=== PATIENT | female | born 1940 | race Caucasian/White ===

== ENCOUNTER 2020-11-11 14:11 | Emergency (ER) | payer MEDICARE, SELFPAY ==
[2020-11-11 16:06] VITALS: BP 178/69; PULSE 90; RESP 16; TEMP 36.8; O2SAT 97; BMI 28.9
--- NOTE | 2020-11-11 16:31 | XR_ITS ---
EXAMINATION: XR LUMBOSACRAL SPINE CLINICAL INFORMATION: Back pain radiating down leg COMPARISON: None TECHNIQUE: Three views of the lumbosacral spine. FINDINGS: There is a mild scoliosis convex to the right. Degenerative changes are present with disc space narrowing at L2-L3 and marked narrowing at L5-S1 with grade 1-2 anterolisthesis. I suspect that there are bilateral pars defects present at the L5 level as well. No fractures or bony destructive lesions seen XR/XR lumbar spine 2-3V IMPRESSION: Degenerative changes present in the spine with marked changes at L5-S1 with grade 1-2 anterolisthesis.
--- NOTE | 2020-11-11 16:41 | PC.NURSE ---
oob to transported to , self transfered to [facility] and back to then able to stand and regain stretcher
--- NOTE | 2020-11-11 16:58 | ED.BACK ---
HPI - Back Pain/Injury General Chief Complaint: Back Pain/Injury Stated Complaint: rt leg pain Time Seen by Provider: 11/11/20 16:07 Source: patient Mode of arrival: ambulatory History of Present Illness HPI Narrative: 80-year-old female with a past medical history of anxiety, hyperlipidemia, hypertension, hypothyroid, PVD presenting to the ED complaining of right-sided low back pain radiating down right lower extremity times 1 week. Reports heavy lifting with helping her . Denies direct trauma/known injury, numbness, tingling, weakness, urinary continence retention, or fever Admits recently saw a chiropractor, and prescribed Robaxin with minimal relief Related Data Home Medications Medication Instructions Recorded Confirmed atorvastatin 80 mg tablet 80 mg PO DAILY 10/21/20 10/21/20 cholecalciferol (vitamin D3) 25 25 mcg PO DAILY 10/21/20 10/21/20 mcg (1,000 unit) capsule cyanocobalamin (vitamin B-12) 1,000 mcg PO DAILY 10/21/20 10/21/20 1,000 mcg capsule vitamin E 200 unit capsule 200 unit PO DAILY 10/21/20 10/21/20 Previous Rx's Medication Instructions Recorded levothyroxine 112 mcg capsule 112 mcg PO DAILY #90 cap 10/21/20 lisinopril 5 mg tablet 5 mg PO DAILY #90 tab 10/21/20 triamcinolone acetonide 0.5 % 1 appl TOPICAL BID #15 g 10/21/20 topical cream meloxicam 7.5 mg tablet 7.5 mg PO DAILY #14 tab 11/07/20 acetaminophen [Tylenol Extra 500 mg PO Q6H PRN #20 tab 11/11/20 Strength] lidocaine [Lidoderm] 1 patch TOPICAL DAILY PRN #30 ea 11/11/20 MDD remove after 12 hours tramadol 50 mg PO Q8H PRN 3 Days #9 tab 11/11/20 Allergies Allergy/AdvReac Type Severity Reaction Status Date / Time amoxicillin Allergy Unknown unknown Verified 10/15/20 13:36 Review of Systems Review of Systems: Constitutional: No Weight loss, No Fever, No Chills Cardiovascular: No Chest Pain, No SOB Respiratory: No Cough Gastrointestinal: No Nausea, No Vomiting, No Diarrhea, No Abdominal pain Genitourinary: No Urinary Incontinence/retention, No Urgency, No Flank Pain Musculoskeletal: + joint pain, No Myalgias, No Joint Swelling Skin: No Skin Lesions, No rash Neuro: No Weakness, No Numbness, No Paresthesias Yes all other systems are reviewed and are negative [facility] Past Medical History Attestation statement: The following information was validated with the patient. Medical History (Updated 11/11/20 @ 17:02 by ISIDRO Vu) Anxiety Hypercholesterolemia Hypertension Hypothyroid Osteopenia Peripheral vascular disease Surgical History History of colonoscopy History of hysterectomy History of left knee replacement History of lumpectomy of left breast History of thyroidectomy Family History Family History (Updated 10/15/20 @ 13:38 by Zoraida Whiatker [facility]) Father CAD (coronary artery disease) CVD (cardiovascular disease) Mother Hypertension Stroke Aneurysm Family/Other Hyperlipidemia Social History Social History Advance Directives: No Advance Directives Information Provided: No Physical Exam Vital Signs: Vital Signs: Last Vital Signs Temp 98.2 F 11/11/20 16:06 Pulse 90 11/11/20 16:06 Resp 16 11/11/20 16:06 BP 178/69 H 11/11/20 16:06 Pulse Ox 97 11/11/20 16:06 Body Mass Index 28.9 Const: General: cooperative and healthy appearing Orientation/consciousness: patient oriented x3 Limitations: no limitations HENMT: Head: Yes normal to inspection Ears: hearing grossly normal bilaterally General nose exam: Normal external nose present Face and sinus: Yes normal facial exam Eyes: General: appearance normal, both eyes and all related structures EOM: EOMs intact bilaterally Neck: Other: No midline cervical spinous tenderness Neck: Yes normal visual inspection Resp: Effort & Inspection: normal respiratory effort Cardio: Rate: regular rate Peripheral pulses: dorsalis pedis present GI: Inspection: Yes normal to inspection Palpation (GI): Soft to palpation, nontender, no guarding and not rigid Back/Spine/Pelvis: Other: No midline thoracic/lumbar spinous tenderness.+ right-sided lower or MSK tenderness/right buttock tenderness to palpation Skin: Rashes: no rashes Wounds: no wounds Neuro: Other: No saddle anesthesia, ambulating with steady gait, strength intact throughout General: patient oriented x3, gait normal, tone normal and moves all extremities Gait exam (Neuro): Normal gait present Motor exam (neuro): 5/5 motor strength present throughout Extrem: General: Yes normal to inspection Course Course Course Narrative: -1800-- ED care transferred to ISIDRO Bill pending XR MDM - Back Pain/Injury MDM Narrative Medical decision making narrative: On exam VSS, NAD/well-appearing, no midline spinous tenderness. No red flag symptoms. No saddle anesthesia. Likely sciatic pain/MSK pain. Low concern for cauda equina/cord compression or fracture Patient requesting x-ray Discharge Plan Discharge Clinical Impression: Sciatica Qualifiers: Laterality: right Qualified Code(s): M54.31 - Sciatica, right side Patient Disposition: Home, Self-Care Instructions: Sciatica (ED) Additional Instructions: Your x-rays were unremarkable Your pain is likely musculoskeletal Continue taking previously prescribed muscle relaxer Lidoderm patches are numbing patches, apply to painful area Tramadol as an opiate pain medication, take only when pain is severe for the next 3 days In addition take Tylenol at home If symptoms persist or worsen, pain becomes unbearable, you developed urinary retention or incontinence, or weakness return to the ED Prescriptions: New acetaminophen [Tylenol Extra Strength] 500 mg tablet 500 mg PO Q6H PRN (Reason: pain or fever) Qty: 20 RF: 0 lidocaine [Lidoderm] 5 % adhesive patch,medicated 1 patch topical DAILY MDD remove after 12 hours PRN (Reason: pain) Qty: 30 RF: 0 tramadol 50 mg tablet 50 mg PO Q8H PRN (Reason: severe pain) 3 Days Qty: 9 RF: 0 No Action meloxicam 7.5 mg tablet 7.5 mg PO DAILY Qty: 14 RF: 0 atorvastatin 80 mg tablet 80 mg PO DAILY RF: 0 cholecalciferol (vitamin D3) 25 mcg (1,000 unit) capsule 25 mcg PO DAILY RF: 0 vitamin E 200 unit capsule 200 unit PO DAILY RF: 0 cyanocobalamin (vitamin B-12) 1,000 mcg capsule 1,000 mcg PO DAILY RF: 0 levothyroxine 112 mcg capsule 112 mcg PO DAILY Qty: 90 RF: 2 triamcinolone acetonide 0.5 % cream 1 appl topical BID Qty: 15 RF: 0 lisinopril 5 mg tablet 5 mg PO DAILY Qty: 90 RF: 3
== END 2020-11-11 19:27 | disposition home or self-care (01) ==
PROVIDERS: Emergency Provider Internal Medicine; PCP Internal Medicine
DX: M54.41 Lumbago with sciatica, right side (principal); M79.604 Pain in right leg; Z79.899 Other long term (current) drug therapy
CPT/HCPCS: 72100; 99283; 99284

== ENCOUNTER 2021-01-03 07:25 | Outpatient (REF) | payer MEDICARE, OTHER, SELFPAY ==
[2021-01-03 08:20] LABS: MANUAL DIFF FLAG NO
[2021-01-03 08:36] LABS: Basophils Absolute Auto 0.1 X10*3/uL (0.0-0.2); Basophils Percent Auto 0.9 % (0-2); Eosinophils Absolute Auto 0.4 X10*3/uL (0.0-0.4); Eosinophils Percent Auto 7.2 % (0-4); Hematocrit 34.5 % (37-47); Hemoglobin 11.3 g/dl (12.0-16.0); Imm Gran Abs Auto 0.01 X10*3/uL (0.00-0.03); Imm Gran Pct Auto 0.2 % (0.0-0.4); Lymphocytes Absolute Auto 1.9 X10*3/uL (1.2-4.9); Lymphocytes Percent Auto 31.6 % (20-40); Mean Corpuscular HGB Conc 32.8 g/dl (31.0-35.0); Mean Corpuscular Hemoglobin 32.3 pg (27.0-33.0); Mean Corpuscular Volume 98.6 fL (80-98); Monocytes Absolute Auto 0.5 X10*3/uL (0.1-1.2); Monocytes Percent Auto 9.1 % (2-11); Platelet Count 295 X10*3/uL (160-400); Red Cell Distribution Width 13.4 % (11.0-16.0); White Blood Count 5.9 X10*3/uL (4.8-10.8)
[2021-01-03 08:53] LABS: Alanine Aminotransferase 21 U/L (0-31); Albumin Level 4.3 g/dL (3.5-5.0); Alkaline Phosphatase 151 U/L (39-117); Anion Gap 10 (12-20); Aspartate Amino Transferase 30 U/L (5-31); Bilirubin Total 0.6 mg/dL (0.0-1.0); Blood Urea Nitrogen 19 mg/dL (9-16); Calcium 9.3 mg/dL (8.4-10.2); Carbon Dioxide 30 mmol/L (22-29); Chloride 98 mmol/L (96-108); Cholesterol 205 mg/dL; Estimated Glomerular Filt Rate > 60; Glucose Random 95 mg/dL (60-115); HDL Cholesterol 65 mg/dL; LDL Cholesterol Calculated 123 mg/dl; Potassium 4.6 mmol/L (3.3-5.1); Sodium 133 mmol/L (135-145); Total Protein 7.3 g/dL (6.5-8.0); Triglycerides 88 mg/dL
[2021-01-03 09:17] LABS: Thyroid Stimulating Hormone 1.75 uIU/mL (0.32-4.0); Vitamin D 25-OH Total 46.8 ng/mL (>30)
[2021-01-05 05:17] LABS: Vitamin B12 447 pg/mL (200-900)
== END 2021-01-03 07:26 | disposition home or self-care (01) ==
LOC: HO.LAB 07:25
PROVIDERS: Visit Provider Internal Medicine
DX: E03.9 Hypothyroidism, unspecified (principal); E78.00 Pure hypercholesterolemia, unspecified; I10 Essential (primary) hypertension
CPT/HCPCS: 36415; 80053; 80061; 82306; 82607; 82746; 84439; 84443; 85025

== ENCOUNTER 2021-01-28 15:06 | Outpatient (REF) | payer MEDICARE, OTHER, SELFPAY ==
--- NOTE | ~2021-01-28 | XR_ITS ---
EXAMINATION: XR CHEST CLINICAL INFORMATION: Cough COMPARISON: 02/07/2018 TECHNIQUE: 2 views of the chest were obtained. FINDINGS: The lungs are well expanded. There is no focal consolidation, edema, or effusion. No pneumothorax. The cardiomediastinal silhouette is within normal limits of size with a calcified aorta. No acute osseous abnormality. XR/XR chest 2V IMPRESSION: Clear lungs.
== END 2021-01-28 15:07 | disposition home or self-care (01) ==
LOC: HO.XRAY 15:06
PROVIDERS: PCP Internal Medicine; Visit Provider Internal Medicine
DX: R05 Cough (principal)
CPT/HCPCS: 71046

== ENCOUNTER 2021-02-07 07:13 | Outpatient (REF) | payer MEDICARE, OTHER, SELFPAY ==
[2021-02-07 08:19] LABS: MANUAL DIFF FLAG NO
[2021-02-07 08:31] LABS: Basophils Absolute Auto 0.1 X10*3/uL (0.0-0.2); Eosinophils Absolute Auto 0.3 X10*3/uL (0.0-0.4); Eosinophils Percent Auto 5.6 % (0-4); Hematocrit 35.6 % (37-47); Hemoglobin 11.7 g/dl (12.0-16.0); Imm Gran Abs Auto 0.01 X10*3/uL (0.00-0.03); Imm Gran Pct Auto 0.2 % (0.0-0.4); Immature Retic Fraction 9.4 % (3.0-15.9); Lymphocytes Absolute Auto 1.9 X10*3/uL (1.2-4.9); Lymphocytes Percent Auto 37.1 % (20-40); Mean Corpuscular HGB Conc 32.9 g/dl (31.0-35.0); Mean Corpuscular Hemoglobin 32.9 pg (27.0-33.0); Monocytes Absolute Auto 0.4 X10*3/uL (0.1-1.2); Monocytes Percent Auto 7.4 % (2-11); Neutrophils Absolute Auto 2.5 X10*3/uL (2.0-8.3); Neutrophils Percent Auto 48.7 % (45-73); Platelet Count 255 X10*3/uL (160-400); Red Blood Count 3.56 X10*6/uL (4.20-5.50); Red Cell Distribution Width 13.1 % (11.0-16.0); Retic HGB Equivalent 36.3 pg (30.0-35.0); Reticulocyte Percent 1.6 % (0.5-1.8); Reticulocytes Absolute 0.058 X10*6/uL (0.026-0.095); White Blood Count 5.2 X10*3/uL (4.8-10.8)
[2021-02-07 08:52] LABS: Iron 90 mcg/dL (30-160); Percent Iron Saturation 27 % (15-50); Total Iron Binding Capacity 330 mcg/dL (228-428); Unsaturated Iron Binding 240 ug/dL
[2021-02-07 09:23] LABS: Ferritin 384 ng/mL (10-250)
== END 2021-02-07 07:14 | disposition home or self-care (01) ==
LOC: HO.LAB 07:13
PROVIDERS: PCP Internal Medicine; Visit Provider Internal Medicine
DX: D64.9 Anemia, unspecified (principal)
CPT/HCPCS: 36415; 82728; 83540; 85025; 85045

== ENCOUNTER 2021-03-09 10:10 | Day surgery (SDC) | payer MEDICARE, OTHER, SELFPAY ==
[2021-03-02 16:53] VITALS: BMI 29.5
--- NOTE | 2021-03-04 16:54 | MHC.SHP ---
Pre-Procedural Eval Section A The patient is an INPATIENT: No The History & Physical has been completed within 30 days and I have reviewed it.: Yes Section B Chief Complaint: Right Eye Cataract Allergies: Allergies Allergy/AdvReac Type Severity Reaction Status Date / Time lisinopril Allergy Intermediate cough Verified 02/25/21 09:52 amoxicillin Allergy Unknown unknown Verified 02/25/21 09:52 Plan Diagnosis/Plan: Unchanged I have reviewed the history and physical and performed a pertinent physical examination on my patient. No changes have occurred unless specified.
--- NOTE | 2021-03-06 09:54 | P.CONAN_ITS ---
Documented by User: Ritika Rebekah 03/06/21 09:55 HPI - Anesthesia Eval Consult details Narrative: 80yo F for Right Cataract Extraction IOL Insertion PCP cleared No prev cataract on record [facility] Active Problems Active Problems: All Active Problems (Updated 02/25/21 @ 10:02 by Sagar Stout MD) Overweight (BMI 25.0-29.9) (Acute) Cataract (Acute) Cough (Acute) Anemia (Acute) Lumbar degenerative disc disease (Acute) Eczema (Acute) Hypercholesterolemia (Acute) Peripheral vascular disease (Acute) Hypothyroid (Acute) Hypertension (Acute) Past Medical History Medical History Anxiety Cataract, left eye Hypercholesterolemia Hypertension Hypothyroid Osteopenia Overweight (BMI 25.0-29.9) Peripheral vascular disease Family History Family History Father CAD (coronary artery disease) CVD (cardiovascular disease) Mother Hypertension Stroke Aneurysm Family/Other Hyperlipidemia Surgical History Surgical History History of colonoscopy History of hysterectomy History of left knee replacement History of lumpectomy of left breast History of thyroidectomy Social History Social History Alcohol intake: never Smoking Status: Former smoker Smoking Quit Date: 1987 Are you DNR?: No Advance Directives: No Advance Directives Information Provided: No Advance Directives on File: No Meds Allergies Allergy/AdvReac Type Severity Reaction Status Date / Time lisinopril Allergy Intermediate cough Verified 02/25/21 09:52 amoxicillin Allergy Unknown unknown Verified 02/25/21 09:52 Home Medications Medication Instructions Recorded Confirmed Last Taken Type atorvastatin 80 mg tablet 80 mg PO DAILY 10/21/20 03/02/21 Unknown History cholecalciferol (vitamin D3) 25 25 mcg PO DAILY 10/21/20 03/02/21 Unknown History mcg (1,000 unit) capsule cyanocobalamin (vitamin B-12) 1,000 mcg PO DAILY 10/21/20 03/02/21 Unknown History 1,000 mcg capsule vitamin E 200 unit capsule 200 unit PO DAILY 10/21/20 03/02/21 Unknown History tizanidine 4 mg PO BEDTIME 03/02/21 03/02/21 Unknown History Exam Exam Date and Time: March 06, 2021 0954 Height,Weight and Vital Signs: Height 5 ft 1 in Weight 70.76 kg Assessment and Plan Assessment Anesthesia Assessment: Chart Reviewed Documented by User: Caitlin Carrillo 03/09/21 11:42 [facility] Past Medical History Medical History Anxiety Cataract, left eye Hypercholesterolemia Hypertension Hypothyroid Osteopenia Overweight (BMI 25.0-29.9) Peripheral vascular disease Family History Family History Father CAD (coronary artery disease) CVD (cardiovascular disease) Mother Hypertension Stroke Aneurysm Family/Other Hyperlipidemia Surgical History Surgical History History of colonoscopy History of hysterectomy History of left knee replacement History of lumpectomy of left breast History of thyroidectomy Social History Social History Alcohol intake: never Smoking Status: Former smoker Smoking Quit Date: 1987 Are you DNR?: No Advance Directives: No Advance Directives Information Provided: No Advance Directives on File: No Meds Allergies Allergy/AdvReac Type Severity Reaction Status Date / Time lisinopril Allergy Intermediate cough Verified 02/25/21 09:52 amoxicillin Allergy Unknown unknown Verified 02/25/21 09:52 Home Medications Medication Instructions Recorded Confirmed Last Taken Type atorvastatin 80 mg tablet 80 mg PO DAILY 10/21/20 03/02/21 Unknown History cholecalciferol (vitamin D3) 25 25 mcg PO DAILY 10/21/20 03/02/21 Unknown History mcg (1,000 unit) capsule cyanocobalamin (vitamin B-12) 1,000 mcg PO DAILY 10/21/20 03/02/21 Unknown History 1,000 mcg capsule vitamin E 200 unit capsule 200 unit PO DAILY 10/21/20 03/02/21 Unknown History tizanidine 4 mg PO BEDTIME 03/02/21 03/02/21 Unknown History Exam Airway TM Dist: >3cm Neck ROM: Full Denture: Upper
[2021-03-09 10:34] VITALS: BP 163/97; PULSE 70; RESP 18; TEMP 36.3; O2SAT 97
[2021-03-09] MEDS: Tetracaine HCl/PF 0.5% Oph Sol 4 ML DROPS 1 DROP EYE-RIGHT (10:41)
[2021-03-09] MEDS: Tropicamide 1 % Ophth Sol 3 ML BTL 1 DROP EYE-RIGHT ×3 (10:41→10:44)
[2021-03-09] MEDS: Phenylephrine HCL 2.5% Oph SoL 2 ML BOTTLE 1 DROP EYE-RIGHT ×3 (10:42→10:44)
[2021-03-09] MEDS: Lactated Ringers 500 ML 50 ML IV (10:47)
--- NOTE | 2021-03-09 11:26 | PC.NURSE ---
verbalized understanding of d/c
--- NOTE | 2021-03-09 11:58 | HO.PNOPHT ---
Ophthalmology Procedure Procedure Date of Service: 03/09/21 Ophthalmology Viscoelastic: Penny Manleyt Dual Pack Pro Ophthalmology Lenses: TECZARI [id number] (28) Procedure Notes: PREOPERATIVE DIAGNOSIS: Decreased visual acuity right eye secondary to cataract POSTOPERATIVE DIAGNOSIS: Same PROCEDURE: Right cataract extraction with intraocular lens insertion SURGEON: Stanislav Lamar M.D. ANESTHESIA: Topical/MAC ESTIMATED BLOOD LOSS: None COMPLICATIONS: None After obtaining informed consent, the patient was brought to the operating room suite and placed in the supine position. After adequate sedation per anesthesia, topical drops of Tetracaine were given to the right eye. The eye was then prepped and draped in the usual sterile fashion. The operating room microscope was then positioned over the operative eye and a lid speculum placed. A paracentesis was created. Viscoelastic was then instilled into the anterior chamber. A three plane incision was then created temporally, utilizing a 2.85 mm keratome. Capsulotomy forceps were then utilized to create a circular tear capsulotomy. Hydrodissection and hydrodelineation were carried out until adequate mobilization of the nucleus occurred. Phacoemulsification was then utilized to remove the dense central nucleus followed by removal of the cortical material utilizing the automated aspiration irrigation unit. Viscoelastic was instilled into the posterior capsular bag followed by placement of a posterior chamber intraocular lens without difficulty. The residual Viscoelastic was then removed utilizing the automated IA machine. The wound was checked and found to be watertight. The patient tolerated the procedure well and the lid speculum was removed. Intracameral injection of Vigamox 0.1 mL followed by a subtenon injection of Kenalog-40 0.2 mL were administered. The patient will be seen in the a.m.
[2021-03-09 12:22] VITALS: BP 166/62; PULSE 86; RESP 16; TEMP 36.2; O2SAT 98
== END 2021-03-09 12:47 | disposition home or self-care (01) ==
PROVIDERS: PCP Internal Medicine; Visit Provider Ophthalmology
PROC: (CPT 66985; principal; 2021-03-09 12:50)
DX: H25.11 Age-related nuclear cataract, right eye (principal); H54.7 Unspecified visual loss; I10 Essential (primary) hypertension; Z79.899 Other long term (current) drug therapy
CPT/HCPCS: 66984; J2250; J3300; V2632

== ENCOUNTER 2021-06-16 10:56 | Outpatient (REF) | payer MEDICARE, OTHER, SELFPAY ==
--- NOTE | ~2021-06-16 | XR_ITS ---
EXAMINATION: XR CERVICAL SPINE CLINICAL INFORMATION: Cervicalgia COMPARISON: None TECHNIQUE: 3 views of the cervical spine were obtained. FINDINGS: No acute fracture or traumatic malalignment. Moderate loss of disc space height at C5-C6 and C6-C7. Small marginal osteophytes at these levels. There is slight anterolisthesis of C4 on C5 related to hypertrophic facet arthropathy which is present throughout the cervical spine. There is loss of joint space thickness between the lateral masses of C1 and C2 with accompanying subchondral sclerosis and marginal osteophytes. Paraspinal soft tissues unremarkable. XR/XR cervical spine 3V IMPRESSION: No acute fracture or traumatic malalignment. Cervical spondylosis as described.
== END 2021-06-16 10:57 | disposition home or self-care (01) ==
LOC: HO.XRAY 10:56
PROVIDERS: PCP Internal Medicine; Visit Provider Internal Medicine
DX: M54.2 Cervicalgia (principal)
CPT/HCPCS: 72040

== ENCOUNTER 2021-06-20 07:24 | Outpatient (REF) | payer MEDICARE, OTHER, SELFPAY ==
[2021-06-20 08:11] LABS: MANUAL DIFF FLAG NO
[2021-06-20 08:20] LABS: Basophils Percent Auto 0.8 % (0-2); Eosinophils Absolute Auto 0.1 X10*3/uL (0.0-0.4); Eosinophils Percent Auto 2.5 % (0-4); Hematocrit 36.6 % (37-47); Hemoglobin 12.2 g/dl (12.0-16.0); Imm Gran Abs Auto 0.01 X10*3/uL (0.00-0.03); Imm Gran Pct Auto 0.2 % (0.0-0.4); Lymphocytes Absolute Auto 2.1 X10*3/uL (1.2-4.9); Lymphocytes Percent Auto 39.3 % (20-40); Mean Corpuscular HGB Conc 33.3 g/dl (31.0-35.0); Mean Corpuscular Hemoglobin 32.9 pg (27.0-33.0); Mean Corpuscular Volume 98.7 fL (80-98); Mean Platelet Volume 10.3 fL (9.4-12.3); Monocytes Absolute Auto 0.5 X10*3/uL (0.1-1.2); Monocytes Percent Auto 8.8 % (2-11); Neutrophils Absolute Auto 2.5 X10*3/uL (2.0-8.3); Neutrophils Percent Auto 48.4 % (45-73); Platelet Count 191 X10*3/uL (160-400); Red Blood Count 3.71 X10*6/uL (4.20-5.50); Red Cell Distribution Width 13.2 % (11.0-16.0); White Blood Count 5.2 X10*3/uL (4.8-10.8)
[2021-06-20 08:35] LABS: Alanine Aminotransferase 126 U/L (0-31); Albumin Level 4.2 g/dL (3.5-5.0); Alkaline Phosphatase 93 U/L (39-117); Anion Gap 11 (12-20); Aspartate Amino Transferase 109 U/L (5-31); Bilirubin Total 0.9 mg/dL (0.0-1.0); Blood Urea Nitrogen 17 mg/dL (9-16); Calcium 9.7 mg/dL (8.4-10.2); Carbon Dioxide 31 mmol/L (22-29); Chloride 102 mmol/L (96-108); Cholesterol 196 mg/dL; Estimated Glomerular Filt Rate > 60; Glucose Fasting 91 mg/dL (60-99); HDL Cholesterol 71 mg/dL; LDL Cholesterol Calculated 112 mg/dl; Potassium 4.6 mmol/L (3.3-5.1); Sodium 139 mmol/L (135-145); Total Protein 7.2 g/dL (6.5-8.0); Triglycerides 65 mg/dL
[2021-06-20 08:54] LABS: Thyroid Stimulating Hormone 0.91 uIU/mL (0.32-4.0)
[2021-06-22 04:08] LABS: Folate 18.8 ng/mL (> or = 4.0); Vitamin B12 1174 pg/mL (200-900)
[2021-06-26 07:27] LABS: Vitamin D 25-OH, D2 <4 ng/mL; Vitamin D 25-OH, D3 42 ng/mL; Vitamin D 25-OH, Total 42 ng/mL (30-100)
== END 2021-06-20 07:25 | disposition home or self-care (01) ==
LOC: HO.LAB 07:24
PROVIDERS: PCP Internal Medicine; Visit Provider Internal Medicine
DX: E03.9 Hypothyroidism, unspecified (principal); E55.9 Vitamin D deficiency, unspecified; E78.5 Hyperlipidemia, unspecified; I73.9 Peripheral vascular disease, unspecified; E53.8 Deficiency of other specified B group vitamins; D64.9 Anemia, unspecified
CPT/HCPCS: 36415; 80053; 80061; 82306; 82607; 82746; 84443; 85025

== ENCOUNTER 2021-07-04 08:04 | Outpatient (REF) | payer MEDICARE, OTHER, SELFPAY ==
[2021-07-04 09:43] LABS: Alanine Aminotransferase 86 U/L (0-31); Albumin Level 4.3 g/dL (3.5-5.0); Alkaline Phosphatase 93 U/L (39-117); Aspartate Amino Transferase 76 U/L (5-31); Bilirubin Direct 0.3 mg/dL (0.0-0.5); Total Protein 7.3 g/dL (6.5-8.0)
[2021-07-07 04:16] LABS: HBc Num1 0.06 S/CO (0.00-0.79); HBsAGNum1 0.22 S/CO (0.00-0.99); Hepatitis B Core Antibody Nonreactive (Nonreactive); Hepatitis B Surface Antigen Negative (Negative)
[2021-07-07 04:31] LABS: HBS Num1 3.13 mIU/mL (0-7.99); ~HepC Num1 0.07 S/CO (0.00-0.79); ~Hepatitis B Surface Antibody NONREACTIVE (Nonreactive); ~Hepatitis C Antibody Nonreactive (Nonreactive)
== END 2021-07-04 08:05 | disposition home or self-care (01) ==
LOC: HO.LAB 08:04
PROVIDERS: PCP Internal Medicine; Visit Provider Internal Medicine
DX: Z01.84 Encounter for antibody response examination (principal); R79.89 Other specified abnormal findings of blood chemistry; R94.5 Abnormal results of liver function studies
CPT/HCPCS: 36415; 80076; 86704; 86706; 86803; 87340

== ENCOUNTER 2021-07-30 08:51 | Outpatient (REF) | payer MEDICARE, OTHER, SELFPAY ==
--- NOTE | ~2021-07-30 | US_ITS ---
EXAMINATION: US ABDOMEN COMPLETE CLINICAL INFORMATION: Other specified abnormal findings of blood chemistry. COMPARISON: None TECHNIQUE: Real-time imaging of the abdominal viscera. Technically difficult study secondary to bowel gas. FINDINGS: PANCREAS: Normal. ABDOMINAL AORTA: The proximal, mid, and distal segments are normal in caliber. INFERIOR VENA CAVA: Visualized portions are normal. LIVER: The liver is normal in size. The liver contour is normal. Liver echotexture is slightly increased. No focal hepatic lesion. There is no intrahepatic biliary duct dilatation seen. GALLBLADDER: Normal. The gallbladder is physiologically distended without evidence of stones, polyps, wall thickening or pericholecystic fluid. COMMON BILE DUCT: Normal in caliber measuring 0.5 cm in diameter. RIGHT KIDNEY: Normal. No hydronephrosis. No renal calculi or focal parenchymal lesions. The kidney measures 9.0 cm in maximum dimension. LEFT KIDNEY: Normal. No hydronephrosis. No renal calculi or focal parenchymal lesions. The kidney measures 9.6 cm in maximum dimension. SPLEEN: Normal. The spleen measures 8.6 cm in maximum dimension. FREE FLUID: None. US/US abdomen complete IMPRESSION: Slightly echogenic liver probably representing fatty infiltration otherwise unremarkable exam.
== END 2021-07-30 08:52 | disposition home or self-care (01) ==
LOC: HO.HMGCX 08:51
PROVIDERS: PCP Internal Medicine; Visit Provider Internal Medicine
DX: R79.89 Other specified abnormal findings of blood chemistry (principal)
CPT/HCPCS: 76700

== ENCOUNTER 2021-10-01 11:01 | Outpatient (REF) | payer MEDICARE, OTHER, SELFPAY ==
--- NOTE | ~2021-10-01 | MM_ITS ---
EXAMINATION: BONE DENSITOMETRY CLINICAL INDICATION: Asymptomatic menopausal state. COMPARISON: Baseline BD dated 03/09/2016. TECHNIQUE: Using a [employer] DXA System (software version: 13.1) manufactured by [employer], dual-energy x-ray absorptiometry was performed of the lumbar spine and left hip. The images are of good technical quality. Summary results are attached. FINDINGS: AP SPINE L1-L4: Current: BMD 0.953 g/cm2, Z-score -0.2, T-score -1.9, osteopenia, 2.4% decrease from baseline (<5% change is not significant). Baseline: BMD 0.976 g/cm2. LEFT FEMUR, NECK: Current: BMD 0.647 g/cm2, Z-score -0.7, T-score -2.8, osteoporosis. Baseline: BMD 0.739 g/cm2. LEFT FEMUR, TOTAL: Current: BMD 0.672 g/cm2, Z-score -0.6, T-score -2.7, osteoporosis, 11.2% decrease from baseline (<5% change is not significant). Baseline: BMD 0.757 g/cm2. IDENTIFIED RISK FACTORS: Early menopause, secondary osteoporosis, hysterectomy, bilateral oophorectomy. HISTORY OF FRACTURE: None listed. MEDICATIONS: Vitamin D. MM/XR DEXA axial skeleton IMPRESSION: 1. DIAGNOSIS: Osteoporosis based on the lowest T-score value of -2.8 in the femoral neck applying World Health Organization criteria. 2. 10-YEAR FRACTURE RISK PREDICTION, FRAX: According to the guidelines, FRAX calculation should only be performed on patients in the osteopenia bone density category. 3. Treatment Recommendations: NOF guidelines recommend consideration for treatment in postmenopausal women and men age 50 and older presenting with the following: -A hip or vertebral (clinical or morphometric) fracture. -T-score less than or equal to -2.5 at the femoral neck or spine after appropriate evaluation to exclude secondary causes. -Low bone mass at the hip or spine and a 10-year fracture probability by FRAX of greater than or equal to 3% for hip fracture or greater than or equal to 20% for major osteoporotic fracture based on the [place] adapted WHO algorithm. 4. Other Recommendations: All treatment decisions require clinical judgment and consideration of individual patient factors, including patient preferences, comorbidities, previous drug use, risk factors not captured in the FRAX model (e.g. frailty, falls, vitamin D deficiency, increased bone turnover, interval significant decline in bone density) and possible under or overestimation of fracture risk by FRAX. Additional medical evaluation for secondary cause of low bone mineral density may be appropriate. FUTURE SCAN RECOMMENDATION: People with diagnosed cases of osteoporosis or at high risk for fracture should have regular bone mineral density tests. For patients eligible for Medicare, routine testing is allowed once every 2 years. The testing frequency can be increased to one year for patients who have rapidly progressing disease, those who are receiving or discontinuing medical therapy to restore bone mass, or have additional risk factors.
== END 2021-10-01 11:02 | disposition home or self-care (01) ==
LOC: HO.MAMMO 11:01
PROVIDERS: PCP Internal Medicine; Visit Provider Nurse Practitioner Family
DX: Z13.820 Encounter for screening for osteoporosis (principal); M81.0 Age-related osteoporosis without current pathological fracture; Z78.0 Asymptomatic menopausal state; Z79.899 Other long term (current) drug therapy
CPT/HCPCS: 77080

== ENCOUNTER 2022-07-29 11:18 | Outpatient (REF) | payer MEDICARE, OTHER, SELFPAY ==
[2022-07-29 13:44] LABS: MANUAL DIFF FLAG NO
[2022-07-29 13:49] LABS: Basophils Percent Auto 0.7 % (0-2); Eosinophils Absolute Auto 0.1 X10*3/uL (0.0-0.4); Eosinophils Percent Auto 1.5 % (0-4); Hematocrit 38.4 % (37.0-47.0); Hemoglobin 12.9 g/dl (12.0-16.0); Imm Gran Abs Auto 0.01 X10*3/uL (0.00-0.03); Imm Gran Pct Auto 0.2 % (0.0-0.4); Immature Retic Fraction 11.9 % (3.0-15.9); Lymphocytes Absolute Auto 2.1 X10*3/uL (1.2-4.9); Lymphocytes Percent Auto 36.2 % (20-40); Mean Corpuscular HGB Conc 33.6 g/dl (31.0-35.0); Mean Corpuscular Hemoglobin 33.4 pg (27.0-33.0); Mean Corpuscular Volume 99.5 fL (80.0-98.0); Mean Platelet Volume 11.1 fL (9.4-12.3); Monocytes Absolute Auto 0.4 X10*3/uL (0.1-1.2); Monocytes Percent Auto 7.3 % (2-11); Neutrophils Absolute Auto 3.2 x10*3/uL (2.0-8.3); Neutrophils Percent Auto 54.1 % (45-73); Platelet Count 227 X10*3/uL (160-400); Red Blood Count 3.86 X10*6/uL (4.20-5.50); Red Cell Distribution Width 12.8 % (11.0-16.0); Retic HGB Equivalent 38.2 pg (30.0-35.0); Reticulocyte Percent 1.7 % (0.5-1.8); Reticulocytes Absolute 0.064 X10*6/uL (0.026-0.095); White Blood Count 5.9 X10*3/uL (4.8-10.8)
[2022-07-29 14:03] LABS: Alanine Aminotransferase 27 U/L (0-31); Albumin Level 4.6 g/dL (3.5-5.0); Alkaline Phosphatase 81 U/L (39-117); Anion Gap 15 (12-20); Aspartate Amino Transferase 40 U/L (5-31); Bilirubin Total 0.6 mg/dL (0.0-1.0); Blood Urea Nitrogen 18 mg/dL (9-16); Calcium 9.8 mg/dL (8.4-10.2); Carbon Dioxide 28 mmol/L (22-29); Chloride 100 mmol/L (96-108); Cholesterol 204 mg/dL; Estimated Glomerular Filt Rate > 60; Glucose Random 93 mg/dL (60-115); HDL Cholesterol 73 mg/dL; Iron 91 mcg/dL (30-160); LDL Cholesterol Calculated 116 mg/dl; Percent Iron Saturation 25 % (15-50); Potassium 4.7 mmol/L (3.3-5.1); Sodium 138 mmol/L (135-145); Total Iron Binding Capacity 358 mcg/dL (228-428); Total Protein 7.6 g/dL (6.5-8.0); Triglycerides 76 mg/dL; Unsaturated Iron Binding 267 ug/dL
[2022-07-29 14:26] LABS: Ferritin 266 ng/mL (10-250); Free T4 (Free Thyroxine) 1.27 ng/dL (0.71-1.85); Thyroid Stimulating Hormone 1.49 uIU/mL (0.32-4.0); Vitamin D 25-OH Total 48.4 ng/mL (>30)
[2022-07-29 14:59] LABS: Folate 16.9 ng/mL (> or = 4.0); Vitamin B12 571 pg/mL (200-900)
== END 2022-07-29 11:19 | disposition home or self-care (01) ==
LOC: HO.10HDL 11:18
PROVIDERS: Absent Provider Otolaryngology; Visit Provider Internal Medicine
DX: E03.9 Hypothyroidism, unspecified (principal); I10 Essential (primary) hypertension; E78.00 Pure hypercholesterolemia, unspecified; H91.91 Unspecified hearing loss, right ear; M81.0 Age-related osteoporosis without current pathological fracture; D64.9 Anemia, unspecified
CPT/HCPCS: 36415; 80053; 80061; 82306; 82607; 82728; 82746; 83540; 84439; 84443; 85025; 85045

== ENCOUNTER 2022-08-11 13:48 | Outpatient (REF) | payer MEDICARE, OTHER, SELFPAY ==
--- NOTE | ~2022-08-11 | MR_ITS ---
EXAMINATION: MR BRAIN WITHOUT AND WITH CONTRAST CLINICAL INFORMATION: 82-year-old with right-sided sensorineural hearing loss. Evaluate for acoustic neuroma. COMPARISON: None TECHNIQUE: Multiplanar, multisequence MRI of the brain and IACs was obtained before and after the intravenous administration of 7.5 mL Gadavist. FINDINGS: IACs: Bilaterally symmetric, no mass lesions or abnormal enhancement. CN VII-VIII complexes normal. AICA Loops: Type II on right. Membranous Labyrinths: Normal, no abnormal enhancement. CP Angle Cisterns: No mass lesions or abnormal enhancement. Brain Volume: Mild generalized diffuse supratentorial and infratentorial brain parenchymal volume loss is noted. Brain and Meninges: DWI sequence demonstrates no restricted diffusion to suggest acute or subacute cerebral ischemia. Gradient refocused imaging demonstrates no abnormal magnetic susceptibility artifact to suggest hemorrhage, hemosiderin staining or abnormal mineral deposition. There are patchy and confluent zones of FLAIR/T2 signal hyperintensity in the deep periatrial and ciera-occipital white matter of both cerebral hemispheres with scattered small foci of T2 hyperintensity in the subcortical white matter of the parietal lobes bilaterally and right frontal lobe with no abnormal enhancement, which are nonspecific findings but could reflect chronic ischemic microangiopathy in a patient of this age. No extra-axial fluid collections, space-occupying process or mass effect are identified. No mass lesions or pathologic intracranial enhancement. Vessels: Normal signal voids are seen in the visualized major intracranial vessels within the limitations of the study (incomplete visualization). Ventricles and Subarachnoid Spaces: The ventricular system and subarachnoid spaces are within normal limits without hydrocephalus. Orbital Structures: Right-sided lens extraction noted. Otherwise, the visualized orbital structures are grossly unremarkable within the limitations of the study. Osseous Structures, Sinuses/Mastoids, Extracranial Soft Tissues: Unremarkable. MR/MR head/brain wo/w con IMPRESSION: 1. Normal appearance to the auditory apparatus without mass lesion or abnormal enhancement. Incidental right-sided AICA loop noted. 2. 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 3. No intracranial mass lesions, hemorrhage, extra-axial fluid collection, abnormal enhancement, space-occupying process, mass effect, or hydrocephalus.
== END 2022-08-11 13:49 | disposition home or self-care (01) ==
LOC: HO.MRI 13:48
PROVIDERS: Visit Provider Otolaryngology
DX: H90.3 Sensorineural hearing loss, bilateral (principal); D33.3 Benign neoplasm of cranial nerves
CPT/HCPCS: 70553; A9585

== ENCOUNTER 2022-09-10 14:30 | Emergency (ER) | payer MEDICARE, OTHER, SELFPAY ==
--- NOTE | 2022-09-10 | ECG_ITS ---
Test Reason : hypertention /chest pressure Blood Pressure : / mmHG Vent. Rate : 086 BPM Atrial Rate : 086 BPM P-R Int : 164 ms QRS Dur : 116 ms QT Int : 390 ms P-R-T Axes : 050 -47 083 degrees QTc Int : 466 ms Normal sinus rhythm Possible Left atrial enlargement Left anterior fascicular block Intra-ventricular conduction delay Left ventricular hypertrophy with QRS widening ( Gervais product ) Abnormal ECG When compared with ECG of 29-JAN-2010 10:53, Premature ventricular complexes are no longer Present QRS duration has increased ST no longer depressed in Inferior leads Nonspecific T wave abnormality no longer evident in Inferior leads Referred By: Generic ED Physician Electronically Signed By:SUKHJINDER MCGRATH MD
--- NOTE | ~2022-09-10 | XR_ITS ---
EXAMINATION: XR CHEST CLINICAL INFORMATION: High blood pressure COMPARISON: 01/28/2021 TECHNIQUE: 2 views of the chest were obtained. FINDINGS: Lungs are clear. No focal consolidation or mass. Normal pulmonary vascularity. No pleural effusion or pneumothorax. Tortuous aorta. Normal heart size. No acute osseous abnormality. XR/XR chest 2V IMPRESSION: No acute pulmonary disease.
--- NOTE | ~2022-09-10 | CT_ITS ---
EXAMINATION: CT HEAD WITHOUT CONTRAST CLINICAL INFORMATION: Headache. COMPARISON: None. TECHNIQUE: Contiguous axial imaging was performed from the skull base to vertex without intravenous administration of contrast. Coronal and sagittal reformatted images are performed at the CT scanner. [This CT examination was performed using dose optimization techniques as appropriate, variously including the following: *Automated exposure control *Adjustment of mA and/or kV according to patient size (this includes techniques or standardized protocols for targeted exams where dose is matched to indication/reason for exam; i.e. extremities or head) *Use of iterative reconstruction technique] DLP: 605 mGy-cm. FINDINGS: There is no evidence of acute intracranial hemorrhage or territorial infarction. No abnormal mass-effect or midline shift is seen. Rachel to white matter differentiation is well preserved. No extra-axial fluid collections are identified. There is generalized global volume loss. There is mild prominence of the ventricles and the sulci . There is mild hypodensity of the periventricular white matter due to chronic small vessel ischemic disease. There are vascular calcifications of the internal carotid arteries bilaterally. There is no osseous abnormality. The mastoid air cells and visualized portions of the paranasal sinuses are well-aerated. CT/CT head/brain wo IV con IMPRESSION: No acute intracranial pathology.
[2022-09-10 14:35] VITALS: BP 186/73; PULSE 89; RESP 18; TEMP 36.4; O2SAT 97; BMI 31.4
[2022-09-10 14:54] LABS: MANUAL DIFF FLAG NO
[2022-09-10 14:57] LABS: Basophils Absolute Auto 0.1 X10*3/uL (0.0-0.2); Basophils Percent Auto 0.8 % (0-2); Eosinophils Absolute Auto 0.1 X10*3/uL (0.0-0.4); Eosinophils Percent Auto 1.4 % (0-4); Hematocrit 39.3 % (37.0-47.0); Hemoglobin 12.8 g/dl (12.0-16.0); Imm Gran Abs Auto 0.02 X10*3/uL (0.00-0.03); Imm Gran Pct Auto 0.3 % (0.0-0.4); Lymphocytes Absolute Auto 2.5 X10*3/uL (1.2-4.9); Lymphocytes Percent Auto 41.5 % (20-40); Mean Corpuscular HGB Conc 32.6 g/dl (31.0-35.0); Mean Corpuscular Hemoglobin 32.6 pg (27.0-33.0); Mean Platelet Volume 9.7 fL (9.4-12.3); Monocytes Absolute Auto 0.5 X10*3/uL (0.1-1.2); Monocytes Percent Auto 7.8 % (2-11); Neutrophils Absolute Auto 2.9 x10*3/uL (2.0-8.3); Neutrophils Percent Auto 48.2 % (45-73); Platelet Count 232 X10*3/uL (160-400); Red Blood Count 3.93 X10*6/uL (4.20-5.50); Red Cell Distribution Width 12.4 % (11.0-16.0); White Blood Count 5.9 X10*3/uL (4.8-10.8)
[2022-09-10 15:29] LABS: Alanine Aminotransferase 22 U/L (0-31); Albumin Level 4.4 g/dL (3.5-5.0); Alkaline Phosphatase 77 U/L (39-117); Anion Gap 15 (12-20); Aspartate Amino Transferase 36 U/L (5-31); Bilirubin Total 0.6 mg/dL (0.0-1.0); Blood Urea Nitrogen 15 mg/dL (9-16); Calcium 9.6 mg/dL (8.4-10.2); Carbon Dioxide 29 mmol/L (22-29); Chloride 100 mmol/L (96-108); Creatinine Clr Calc Pharmacy 47.3; Estimated Glomerular Filt Rate > 60; Glucose Random 92 mg/dL (60-115); Potassium 4.7 mmol/L (3.3-5.1); Sodium 139 mmol/L (135-145); Total Protein 7.7 g/dL (6.5-8.0)
[2022-09-10 15:37] LABS: Troponin-I High Sensitivity < 3.5 ng/L (<3.5-17.0)
[2022-09-10 19:26] VITALS: BP 189/84; PULSE 79; RESP 18; O2SAT 98
--- NOTE | 2022-09-10 22:25 | ED.GENADULT ---
HPI - General Adult General Chief complaint: General Medical Stated complaint: Difficulty breathing/Chest tightness Time Seen by Provider: 09/10/22 22:25 Source: patient and family (grandson) Mode of arrival: wheelchair Limitations: no limitations History of Present Illness HPI narrative: Patient is an 82 year old assigned female at with a history of HTN presenting to the emergency department today with an elevated blood pressure. Patient states that over the last couple of days she has noticed that her blood pressure is higher and she is having intermittent neck pain with movement. Patient states that the neck pain is chronic but when she called her PCP and explained she was having elevated blood pressures, they recommended she come to the emergency department. Patient denies any dizziness, lightheadedness, abdominal pain, nausea, vomiting, fever, chills, blurry vision, double vision, loss of vision, chest pain, difficulty breathing, shortness of breath, back pain, night sweats, pain with urination, increased urinary frequency, increased urinary urgency, blood in her urine or stool, syncope or a near syncopal episode, recent trauma or falls, bowel incontinence, bladder incontinence, bowel retention, bladder retention, or any other complaints at this time. Onset (ago): day(s) (2) Severity: mild Severity scale (1-10): 2 Pain Consistency: intermittent and now resolved Relieving factors: none Exacerbating factors: none Associated symptoms: denies other symptoms Treatments prior to arrival: none Related Data Home Medications Medication Instructions Recorded Confirmed cholecalciferol (vitamin D3) 25 25 mcg PO DAILY 10/20/21 03/10/22 mcg (1,000 unit) capsule cyanocobalamin (vitamin B-12) 1,000 mcg PO DAILY 10/20/21 03/10/22 1,000 mcg capsule Previous Rx's Medication Instructions Recorded levothyroxine 112 mcg tablet 112 mcg PO DAILY #90 tabs 03/05/22 meclizine 25 mg tablet 25 mg PO TID PRN dizziness 7 days 03/10/22 #21 tabs amlodipine 2.5 mg tablet 2.5 mg PO DAILY #90 tabs 04/01/22 atorvastatin 80 mg tablet 80 mg PO DAILY 90 days #90 tabs 09/09/22 Allergies Allergy/AdvReac Type Severity Reaction Status Date / Time lisinopril Allergy Intermediate cough Verified 09/09/22 13:19 amoxicillin Allergy Unknown unknown Verified 09/09/22 13:19 Review of Systems Constitutional: Constitutional: Reports no additional constitutional complaints, Denies chills, Denies fever(s) and Denies night sweats Eyes: Eyes: Reports no additional eye complaints, Denies blurry vision, Denies change in vision, Denies diplopia, Denies eye discharge, Denies loss of vision and Denies eye pain ENT: Denies dizziness and Reports neck pain (intermittent, chronic) Cardiovascular: Cardiovascular: Reports no additional cardiovascular complaints, Denies chest pain, Denies lightheadedness, Denies Loss of Consciousness and Denies dyspnea Respiratory: Respiratory: Reports no additional respiratory complaints and Denies dyspnea Gastrointestinal: Gastrointestinal: Reports no additional gastrointestinal complaints, Denies abdominal pain, Denies melena, Denies hematochezia, Denies change in bowel habits and Denies change in stool character Genitourinary: Genitourinary: Denies hematuria, Denies urinary frequency, Denies dysuria, Denies urinary incontinence, Denies urinary hesitancy and Denies urinary urgency Musculoskeletal: Musculoskeletal: Reports no additional musculoskeletal complaints, Reports neck pain (intermittent, chronic), Denies numbness and Denies tingling Neurologic: Denies dizziness, Denies loss of vision, Denies numbness and Denies tingling Psychiatric: Psychiatric: Reports no additional psychiatric complaints Endocrine: Endocrine: Reports no additional endocrine complaints Hematologic/Lymphatic: Hematologic/Lymphatic: Reports no additional hematologic/lymphatic complaints Allergic/Immunologic: Allergic/Immunologic: Reports no additional allergic/immunologic complaints [facility] Past Medical History Attestation statement: The following information was validated with the patient. Source: old records reviewed Medical History Anxiety B12 deficiency Cataract Cataract, left eye Cough Dizziness Hypercholesterolemia Hypertension Hypothyroid Neck pain Osteopenia Overweight (BMI 25.0-29.9) Peripheral vascular disease Tinnitus of both ears Surgical History History of colonoscopy History of hysterectomy History of left knee replacement History of lumpectomy of left breast History of right cataract surgery History of thyroidectomy Family History Family History Father CAD (coronary artery disease) CVD (cardiovascular disease) Mother Hypertension Stroke Aneurysm Family/Other Hyperlipidemia Social History Social History Housing: House Alcohol intake: never Patient Tobacco Use Status: Former Tobacco user Tobacco use type: Cigarette e-Cigarette/Vaping Use: Never Used Second Hand Smoke Exposure: No Advance Directives: No Advance Directives Information Provided: No service: No Current occupational status: retired Cognitive needs: No Hearing needs: No Vision needs: Yes Physical Exam ED Vital Signs: Vital Signs - 24 hr 09/10/22 14:35 09/10/22 19:26 Temperature 97.6 F Pulse Rate 89 79 Respiratory Rate 18 18 Blood Pressure 186/73 H 189/84 H Pulse Oximetry 97 98 Oxygen Delivery Method Room Air Room Air BMI result Body Mass Index 31.4 Const General: cooperative, no acute distress, alert and awake Nutritional Appearance: well nourished Orientation/consciousness: patient oriented x3 Limitations: no limitations HENMT Head: Yes normal to inspection and Yes atraumatic Ears: hearing grossly normal bilaterally and external ears normal General nose exam: Normal external nose present, no nasal discharge noted and no epistaxis Face and sinus: Yes normal facial exam, No abrasion and No laceration Mouth: Normal oral and palatal mucosa present, no drooling and no muffled voice Eyes General: appearance normal, both eyes and all related structures Periorbital: periorbital findings normal Eyelids: Yes eyelids normal Conjunctivae: conjunctivae normal Pupils: Equal, round and reactive pupils present EOM: EOMs intact bilaterally Neck Neck: Yes normal visual inspection, Yes full ROM and Yes no lymphadenopathy Chest Chest palpation & inspection: normal inspection of the chest Resp Effort & Inspection: normal respiratory effort and able to speak in complete sentences Auscultation: clear to auscultation bilaterally Cardio Rate: regular rate Rhythm: regular rhythm GI Inspection: Yes normal to inspection Neuro General: patient oriented x3 and moves all extremities Cranial nerves: Yes Equal, round and reactive pupils present Cognition (Neuro): normal cognition Motor exam (neuro): 5/5 motor strength present throughout Sensory Exam: Normal double simultaneous stimulation for sensation Coordination: [id number] test normal Extrem General: Yes normal to inspection, Yes full ROM and Yes capillary refill normal Psych Appearance: grossly normal Mental Status: mental status grossly normal Affect: normal affect Attitude: cooperative Thought process: Normal thought process present Thought content: Normal thought content present Insight: Good insight present (Psych) Medical Decision Making MDM Narrative Medical decision making narrative: Patient is an 82 year old assigned female at with a history of HTN presenting to the emergency department today with high blood pressure and intermittent, chronic, neck pain. Patient's physical exam was unremarkable. Patient's blood work was unremarkable. Patient's EKG was unremarkable. Patient's chest x-ray and head CT showed no acute process. I explained my physical exam findings as well as all test results to the patient and the patient's grandson. I answered all questions asked by the patient and the patient's grandson. I stressed the importance of the patient taking her medication as prescribed. I stressed the importance of the patient following up with her primary care provider and continuing to maintain a blood pressure diary while taking her currently prescribed blood pressure medications. I stressed the importance of the patient returning to the emergency department immediately if her symptoms were to worsen or if she were to develop any dizziness, shortness of breath, difficulty breathing, chest pain, blurry vision, loss of vision, nausea, vomiting, abdominal pain, fever, chills, back pain, or any other complaints. Patient and the patient's grandson verbalized agreement and understanding with this treatment plan and discharge. Medical Records Medical records reviewed: Yes I reviewed the patient's medical records. Lab Data Lab results reviewed: Yes I reviewed the patient's lab results. Result diagrams: 09/10/22 14:46 09/10/22 14:47 Labs: Lab Results 09/10/22 09/10/22 09/10/22 Range/Units 14:46 14:46 14:47 WBC 5.9 (4.8-10.8) X10*3/uL RBC 3.93 L (4.20-5.50) X10*6/uL Hgb 12.8 (12.0-16.0) g/dl Hct 39.3 (37.0-47.0) % MCV 100.0 H (80.0-98.0) fL MCH 32.6 (27.0-33.0) pg MCHC 32.6 (31.0-35.0) g/dl RDW 12.4 (11.0-16.0) % Plt Count 232 (160-400) X10*3/uL MPV 9.7 (9.4-12.3) fL Immature Gran % (Auto) 0.3 (0.0-0.4) % Neut % (Auto) 48.2 (45-73) % Lymph % (Auto) 41.5 H (20-40) % [place] % (Auto) 7.8 (2-11) % Eos % (Auto) 1.4 (0-4) % Baso % (Auto) 0.8 (0-2) % Lymph # (Auto) 2.5 (1.2-4.9) X10*3/uL [place] # (Auto) 0.5 (0.1-1.2) X10*3/uL Eos # (Auto) 0.1 (0.0-0.4) X10*3/uL Baso # (Auto) 0.1 (0.0-0.2) X10*3/uL Abs Immat Gran (auto) 0.02 (0.00-0.03) X10*3/uL Absolute Neuts (auto) 2.9 (2.0-8.3) x10*3/uL Absolute Nucleated RBC 0.000 (0.0-0.012) X10*3/uL Nucleated RBC % (auto) 0.0 (0.0-0.2) /100WBC Sodium 139 (135-145) mmol/L Potassium 4.7 (3.3-5.1) mmol/L Chloride 100 (96-108) mmol/L Carbon Dioxide 29 (22-29) mmol/L Anion Gap 15 (12-20) BUN 15 (9-16) mg/dL Creatinine 0.82 (0.5-1.4) mg/dL Estim Creat Clear Calc 47.3 Estimated GFR > 60 Random Glucose 92 (60-115) mg/dL Calcium 9.6 (8.4-10.2) mg/dL Total Bilirubin 0.6 (0.0-1.0) mg/dL AST 36 H (5-31) U/L ALT 22 (0-31) U/L Alkaline Phosphatase 77 (39-117) U/L Troponin I High Sens < 3.5 (<3.5-17.0) ng/L Total Protein 7.7 (6.5-8.0) g/dL Albumin 4.4 (3.5-5.0) g/dL Imaging Data Chest x-ray: Attestation: I personally reviewed and interpreted this imaging study as follows: My impression: No acute process. Radiologist's impression: EXAMINATION: XR CHEST CLINICAL INFORMATION: High blood pressure COMPARISON: 01/28/2021 TECHNIQUE: 2 views of the chest were obtained. FINDINGS: Lungs are clear. No focal consolidation or mass. Normal pulmonary vascularity. No pleural effusion or pneumothorax.? Tortuous aorta. Normal heart size. No acute osseous abnormality. XR/XR chest 2V IMPRESSION: No acute pulmonary disease. Dictated By: Ramirez Sun MD Signed By: Electronically signed by Ramirez Sun MD in [place] 09/10/[address] scan - head: Attestation: I personally reviewed and interpreted this imaging study as follows: My impression: No acute process. Radiologist's impression: EXAMINATION: CT HEAD WITHOUT CONTRAST CLINICAL INFORMATION: Headache. COMPARISON: None. TECHNIQUE: Contiguous axial imaging was performed from the skull base to vertex without intravenous administration of contrast. Coronal and sagittal reformatted images are performed at the CT scanner. [This CT examination was performed using dose optimization techniques as appropriate, variously including the following: *Automated exposure control *Adjustment of mA and/or kV according to patient size (this includes techniques or standardized protocols for targeted exams where dose is matched to indication/reason for exam; i.e. extremities or head) *Use of iterative reconstruction technique] DLP: 605 mGy-cm. FINDINGS: There is no evidence of acute intracranial hemorrhage or territorial infarction. No abnormal mass-effect or midline shift is seen. Rachel to white matter differentiation is well preserved. No extra-axial fluid collections are identified. There is generalized global volume loss. There is mild prominence of the ventricles and the sulci . There is mild hypodensity of the periventricular white matter due to chronic small vessel ischemic disease. There are vascular calcifications of the internal carotid arteries bilaterally. There is no osseous abnormality. The mastoid air cells and visualized portions of the paranasal sinuses are well-aerated. CT/CT head/brain wo IV con IMPRESSION: No acute intracranial pathology. Dictated By: Richard Sosa MD Signed By: Electronically signed by Richard Sosa MD 09/10/22 9217 ECG Data Attestation: I personally reviewed and interpreted this ECG as follows: Prior ECG tracings: available for review Interpretation: Vent. Rate: 086 BPM ? ? Atrial Rate: 086 BPM P-R Int: 164 ms? QRS Dur: 116 ms QT Int: 390 ms ? ? ? P-R-T Axes: 050 -47 083 degrees QTc Int: 466 ms ? Normal sinus rhythm Possible Left atrial enlargement Left anterior fascicular block Intra-ventricular conduction delay Left ventricular hypertrophy with QRS widening ([place] product) Abnormal ECG When compared with ECG of 29-JAN-2010 10:53, Premature ventricular complexes are no longer Present QRS duration has increased ST no longer depressed in Inferior leads Nonspecific T wave abnormality no longer evident in Inferior leads ? Electronically Signed By:SUKHJINDER MCGRATH MD Dictated By: Ishan Mcgrath MD Signed By: Electronically signed by Ishan Mcgrath MD 09/10/22 1640 Discharge Plan Discharge Clinical Impression: Hypertension Patient Disposition: Home, Self-Care Instructions: Hypertension (ED) Additional Instructions: Follow up with your primary care provider. Return to the emergency department immediately if your symptoms worsen or if you develop any dizziness, shortness of breath, difficulty breathing, chest pain, blurry vision, loss of vision, nausea, vomiting, abdominal pain, fever, chills, back pain, or any other complaints. Prescriptions: No Action levothyroxine 112 mcg tablet 112 mcg PO DAILY Qty: 90 2RF amlodipine 2.5 mg tablet 2.5 mg PO DAILY Qty: 90 2RF cyanocobalamin (vitamin B-12) 1,000 mcg capsule 1,000 mcg PO DAILY cholecalciferol (vitamin D3) 25 mcg (1,000 unit) capsule 25 mcg PO DAILY meclizine 25 mg tablet 25 mg PO TID PRN (Reason: dizziness) 7 Days Qty: 21 0RF atorvastatin 80 mg tablet 80 mg PO DAILY 90 Days Qty: 90 3RF Referrals: Po,Jessica Sandoval MD [Primary Care Provider] - Interventions: ED Discharge Assessment Last Done: 09/10/22 22:30 Discharge Date/Time: 09/10/22 22:31 Print Language: Thai
== END 2022-09-10 22:31 | disposition home or self-care (01) ==
PROVIDERS: Emergency Provider Student in an Organized Health Care Education/Training Program; PCP Internal Medicine
DX: R06.02 Shortness of breath (principal); R51.9 Headache, unspecified; I10 Essential (primary) hypertension; R07.89 Other chest pain; Z79.899 Other long term (current) drug therapy
CPT/HCPCS: 36415; 70450; 71046; 80053; 84484; 85025; 93005; 99283; 99284

== ENCOUNTER 2023-02-16 14:43 | Outpatient (REF) | payer MEDICARE, OTHER, SELFPAY ==
--- NOTE | ~2023-02-16 | XR_ITS ---
EXAMINATION: XR knee standing BI, XR knee RT 2V CLINICAL INFORMATION: Reason for Exam M25.569 - Pain in unspecified knee COMPARISON: None. TECHNIQUE: Standing view of the bilateral knees and 2 views of the right knee XR/XR knee RT 2V FINDINGS/IMPRESSION: * Moderate to severe degenerative changes of the right knee joint with near [id number] apposition of the lateral compartment and tricompartmental osteophytosis, diffuse osteopenia. Status post left knee arthroplasty. * No acute fracture or dislocation.
--- NOTE | ~2023-02-16 | XR_ITS ---
EXAMINATION: XR knee standing BI, XR knee RT 2V CLINICAL INFORMATION: Reason for Exam M25.569 - Pain in unspecified knee COMPARISON: None. TECHNIQUE: Standing view of the bilateral knees and 2 views of the right knee XR/XR knee standing BI FINDINGS/IMPRESSION: * Moderate to severe degenerative changes of the right knee joint with near [id number] apposition of the lateral compartment and tricompartmental osteophytosis, diffuse osteopenia. Status post left knee arthroplasty. * No acute fracture or dislocation.
== END 2023-02-16 14:44 | disposition home or self-care (01) ==
LOC: HO.HOSX 14:43
PROVIDERS: Visit Provider Physician Assistant
DX: M17.11 Unilateral primary osteoarthritis, right knee (principal)
CPT/HCPCS: 20610; 73560; 73565; 99202; J1040

== ENCOUNTER → 2023-02-28 12:32 | Outpatient (BNVA) | payer MEDICARE, OTHER, SELFPAY | PROVIDERS: PCP Internal Medicine; Visit Provider Orthopaedic Surgery | DX: M17.11 Unilateral primary osteoarthritis, right knee (principal) | CPT/HCPCS: 99212 ==

== ENCOUNTER → 2023-05-04 12:51 | Outpatient (BNVA) | payer MEDICARE, OTHER, SELFPAY | PROVIDERS: Visit Provider Orthopaedic Surgery ==

== ENCOUNTER 2023-05-24 10:11 | Outpatient (AMB) | payer MEDICARE, OTHER, SELFPAY ==
[2023-05-24 10:15] VITALS: BP 178/72; PULSE 68; O2SAT 97
--- NOTE | 2023-05-24 10:15 | MHC.PC.OV ---
Vital Signs 05/24/23 10:15 05/24/23 10:32 Height 5 ft 1 in Weight 159 lb BMI 30.0 BP 178/72 H 160/72 H Blood Pressure Location Lt brachial Position Sitting Pulse 68 Pulse Source Pulse Oximeter Temp Source Skin Pulse Oximetry (%) 97 Oxygen Delivery Method Room Air 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: 05/31/23 right total knee arthroplasty Intake Note: Patient is here for a Pre-op for Right total knee arthroplasty scheduled with Dr. 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 Allergies amoxicillin Allergy (Intermediate, Verified 05/24/23 11:08) rectal bleeding lisinopril Allergy (Intermediate, Verified 05/24/23 10:23) cough Medication List - Last Reconciled 05/24/23 by Miguel Angel Moreira PA-C amlodipine 2.5 mg PO DAILY atorvastatin 80 mg PO DAILY 90 days cholecalciferol (vitamin D3) 25 mcg PO DAILY cyanocobalamin (vitamin B-12) 1,000 mcg PO DAILY fluticasone propionate 50 mcg/actuation 1 spray intranasal DAILY levothyroxine 112 mcg PO DAILY meclizine 25 mg PO TID PRN 7 days propylene glycol 0.6% (Systane Balance) 1 drp ophthalmic (eye) DAILY PRN tizanidine 4 mg PO BID PRN Tobacco use date assessed: 05/24/23 Fall risk assessment: No Falls in past year Last assessed Fall Risk: 05/24/23 Dental Screening Dental Screen Date: 05/24/23 Did you have a dental visit in the last 12 months?: Yes Did you have a dental problem in the last 6 months where you did not have access to dental care?: No HPI 05/31/23 right total knee arthroplasty HPI Details Patient is an 82-year-old female here today for preoperative evaluation. Patient is due for right total knee arthroplasty with [facility] on 05/31/2023. Patient has a past medical history significant for hyperlipidemia, hypothyroidism, hypertension and lumbar disc disease.\ Otherwise no history of OR, Congestive heart failure for CVA. Does not take any anticoagulation or anti-platelet therapy. .. Hypertension: Blood pressure today in office elevated though is asymptomatic. Reports that home blood pressures are much better ( 130 -135 systolic at home). [facility] Medical History (Updated 05/24/23 @ 11:07 by Gail Gurrola RN) Anxiety B12 deficiency Cataract Cataract, left eye Cough Dizziness Hypercholesterolemia Hypertension Hypothyroid Impaired vision Neck pain Osteopenia Overweight (BMI 25.0-29.9) Peripheral vascular disease Tinnitus of both ears Surgical History (Updated 05/24/23 @ 11:03 by Gail Gurrola RN) History of colonoscopy History of hysterectomy History of left knee replacement History of lumpectomy of left breast History of right cataract surgery History of thyroidectomy Family History Father CAD (coronary artery disease) CVD (cardiovascular disease) Mother Hypertension Stroke Aneurysm Family/Other Hyperlipidemia Social History Housing: House Are you a primary pediatric acute care unit nurse to a significant other at home: No Do you presently have visiting nurse or other home services: No Alcohol intake: never Patient Tobacco Use Status: Former Tobacco user Quit Date: 1987 Tobacco use type: Cigarette Years Smoked: 10 e-Cigarette/Vaping Use: Never Used Second Hand Smoke Exposure: No service: No Current occupational status: retired Cognitive needs: No Hearing needs: No Vision needs: Yes Questionnaire Thrive Questionnaire Date Thrive assessed: 01/10/23 AUDIT C Alcohol Use Questionnaire (AUDIT-C) 1. How often do you have a drink containing alcohol?: Never 2. How many drinks containing alcohol do you have on a typical day when you are drinking?: 1 or 2 3. How often do you have six or more drinks on one occasion?: Never Total Score: 0 Score Reviewed/Action Taken: No MISAEL-7 AMB Questionnaire MISAEL-7 Date MISAEL - 7 assessed: 01/10/23 Source: Developed by Drs. Darren Noel, Minnie Nevarez, Dago Mcmahan and colleagues, with an educational madelyn from [employer]. Review of Systems Const Denies headache(s) Eyes Denies loss of vision ENT Denies vertigo, Denies dizziness, Denies headache(s) and Denies sore throat Card Denies chest pain, Denies leg edema and Denies lightheadedness Resp Denies cough, Denies hemoptysis and Denies wheezing GI Denies abdominal pain, Denies melena, Denies constipation, Denies diarrhea and Denies vomiting Denies urinary frequency, Denies dysuria and Denies urinary urgency Musc Denies arthralgias, Denies joint swelling, Denies numbness and Denies tingling Neuro Denies Abnormal speech present, Denies behavioral changes, Denies vertigo, Denies dizziness, Denies headache(s), Denies loss of vision, Denies memory loss, Denies numbness and Denies tingling Psych Denies anxiety, Denies behavioral changes, Denies depression, Denies memory loss and Denies panic attacks Alphonso/Lymph Denies easy bleeding and Denies easy bruising Aller/Immun Denies wheezing Physical exam (Primary Care) Vital Signs: Last Vital Signs Pulse 68 05/24/23 10:15 BP 160/72 H 05/24/23 10:32 Pulse Ox 97 05/24/23 10:15 Oxygen Delivery Method Room Air 05/24/23 10:15 BMI result Body Mass Index 30.0 Tobacco/Smoking Status: Tobacco use Status Tobacco use date assessed 05/24/23 05/24/23 10:17 Patient Tobacco Use Status Former Tobacco user 05/24/23 10:17 Tobacco use type Cigarette 05/24/23 10:17 e-Cigarette/Vaping Use Never Used 05/24/23 10:17 Thrive Assessment: Date of Thrive Assessment Date Thrive assessed 01/10/23 05/24/23 10:17 Const General: healthy appearing, no acute distress, alert and awake Nutritional Appearance: well nourished Orientation/consciousness: oriented to person, oriented to place and oriented to time HENMT Ears: TM's normal bilaterally General nose exam: Normal nasal mucous membranes and turbinates present Eyes Conjunctivae: conjunctivae normal Sclerae: sclerae normal Pupils: Equal, round and reactive pupils present Neck Neck: Yes no lymphadenopathy and Yes no JVD Thyroid: Thyroid normal Carotids: no bruits Resp Effort & Inspection: normal respiratory effort and not tachypneic Auscultation: no crackles, no rales, no rhonchi and no wheezes Cardio Rate: regular rate Rhythm: regular rhythm Heart sounds: no murmurs and normal S1 and S2 GI Palpation (GI): Soft to palpation, nontender, no hepatomegaly and no splenomegaly Auscultation: normal bowel sounds Skin General skin exam: no rashes or lesions noted and dry skin Neuro General: oriented to person, oriented to place and oriented to time Cranial nerves: Yes Equal, round and reactive pupils present Speech: No Abnormal speech present Gait exam (Neuro): Normal gait present Motor exam (neuro): no tremor noted Extrem Right upper extremity: full ROM Left upper extremity: full ROM Right lower extremity: full ROM; no edema Left lower extremity: full ROM; no edema Psych Mental Status: mental status grossly normal Speech and movement: Normal speech and movement present Affect: normal affect Attitude: cooperative Thought process: Normal thought process present Assessment and Plan Assessment & Plan (1) Pre-op evaluation: Code(s): Z01.818 - Encounter for other preprocedural examination Plan: Patient due for right knee total arthroplasty Patient's medical conditions have been stable. Blood pressure today in office elevated though reports that home blood pressures 130-135 systolic, asymptomatic without any chest discomfort headaches or vision issues. ] . Of note patient does have history left anterior fascicular block. EKG showing PVCs, clinically asymptomatic. Labs are stable. Patient is medically clear for needed right total arthroplasty. (2) Osteoarthritis of right knee: Code(s): M17.11 - Unilateral primary osteoarthritis, right knee Qualifiers: Osteoarthritis type: primary Qualified Code(s): M17.11 - Unilateral primary osteoarthritis, right knee Plan: Due for right total knee arthroplasty. (3) Hypertension: Code(s): I10 - Essential (primary) hypertension Qualifiers: Hypertension type: primary hypertension Qualified Code(s): I10 - Essential (primary) hypertension Plan: Again blood pressure elevated today in office. He she is asymptomatic. ? White coat hypertension. Reports blood pressures at home have been stable 130s systolic. Orders: Orders Basic Metabolic Panel 05/24/23 Z01.818 - Encounter for other preprocedural examination Liver Panel 05/24/23 Z01.818 - Encounter for other preprocedural examination ECG 12 lead EKG 05/24/23 Z01.818 - Encounter for other preprocedural examination Complete Blood Count no Diff 05/24/23 Z01.818 - Encounter for other preprocedural examination Medications: Discontinued atorvastatin 80 mg PO DAILY 90 days 90 tabs 3RF levothyroxine 112 mcg PO DAILY 90 tabs 2RF E03.9 - Hypothyroidism, unspecified amlodipine 2.5 mg PO DAILY 90 tabs 2RF I10 - Essential (primary) hypertension Coding Level of Care Code Est Pt Level 4 (49255) Diagnoses Pre-op evaluation Z01.818 Osteoarthritis of right knee M17.11 Osteoarthritis type: primary Hypertension I10 Hypertension type: primary hypertension
[2023-05-24 10:32] VITALS: BP 160/72
== END 2023-05-24 10:37 | disposition home or self-care (01) ==
PROVIDERS: PCP Internal Medicine; Visit Provider Physician Assistant
DX: Z01.818 Encounter for other preprocedural examination (principal); M17.11 Unilateral primary osteoarthritis, right knee; I10 Essential (primary) hypertension
CPT/HCPCS: 99214

== ENCOUNTER → 2023-05-24 12:36 | Outpatient (BNV) | payer MEDICARE, OTHER, SELFPAY | PROVIDERS: Admitting Provider Orthopaedic Surgery; PCP Internal Medicine; Visit Provider Internal Medicine Cardiovascular Disease | DX: I49.3 Ventricular premature depolarization (principal); R94.31 Abnormal electrocardiogram [ECG] [EKG] | CPT/HCPCS: 93010 ==

== ENCOUNTER 2023-05-26 12:33 | Outpatient (AMB) | payer MEDICARE, OTHER, SELFPAY ==
--- NOTE | 2023-05-26 12:41 | A.OFFVIS_ITS ---
Intake Vital Signs 05/26/23 12:41 Height 5 ft 1 in Weight 159 lb BMI 30.0 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: Preop-RT TKA 05/31/23 NE Intake Note: Katya 82 yr old female presents today for her pre- op visit for her right TKA schedule for 05/31/[address] Lopez. Pain management agreement signed and reviewed. Allergies amoxicillin Allergy (Intermediate, Verified 05/26/23 12:45) rectal bleeding lisinopril Allergy (Intermediate, Verified 05/26/23 12:45) cough Medication List - Last Reconciled 05/26/23 by Esha Carlos PA-C amlodipine 2.5 mg PO QAM atorvastatin 80 mg PO BEDTIME cholecalciferol (vitamin D3) 25 mcg PO BEDTIME cyanocobalamin (vitamin B-12) 1,000 mcg PO QPM fluticasone propionate 50 mcg/actuation 1 spray intranasal DAILY levothyroxine 112 mcg PO QAM meclizine 25 mg PO TID PRN 7 days propylene glycol 0.6% (Systane Balance) 1 drp ophthalmic (eye) BEDTIME tizanidine 4 mg PO BID PRN HPI HPI Comments History of Present Illness Details Ms Mireles presents to the office today for preop visit. She is scheduled for right total knee arthroplasty with Dr. Lopez. She continues to have ongoing pain and difficulty with ambulation in the right knee, which is affecting her quality of life; therefore, she has elected to move forward with surgery. Previous visit with Dr Lopez on 02/28/23 Katya is an 82 year old woman with right knee OA. She was last seen, and injected by ISIDRO May, on 02/16/23. She says this has been very helpful for her so far. She does not complain of pain today, but would like to discuss surgery for the future. She tries to stay active with walking and has recently moved into a new house. She has a Hx of left TKA in the past, with went very well for her. [facility] Medical History Anxiety B12 deficiency Cataract Cataract, left eye Cough Dizziness Hypercholesterolemia Hypertension Hypothyroid Impaired vision Neck pain Osteopenia Overweight (BMI 25.0-29.9) Peripheral vascular disease Tinnitus of both ears Surgical History History of colonoscopy History of hysterectomy History of left knee replacement History of lumpectomy of left breast History of right cataract surgery History of thyroidectomy Family History Father CAD (coronary artery disease) CVD (cardiovascular disease) Mother Hypertension Stroke Aneurysm Family/Other Hyperlipidemia Social History Housing: House Are you a primary youth care professional to a significant other at home: No Do you presently have visiting nurse or other home services: No Alcohol intake: never Patient Tobacco Use Status: Former Tobacco user Quit Date: 1987 Tobacco use type: Cigarette Years Smoked: 10 e-Cigarette/Vaping Use: Never Used Second Hand Smoke Exposure: No service: No Current occupational status: retired Cognitive needs: No Hearing needs: No Vision needs: Yes Review of Systems Const All systems reviewed & are unremarkable except as noted in HPI and below Physical Exam Vital Signs: BMI result Body Mass Index 30.0 Const General: cooperative, healthy appearing, comfortable, no acute distress, well developed and alert Orientation/consciousness: patient oriented x3 HEENT Head: Yes normal to inspection, Yes normocephalic and Yes atraumatic Eyes General: appearance normal, both eyes and all related structures Neck Neck: Yes normal visual inspection and Yes no lymphadenopathy Resp Effort & Inspection: normal respiratory effort and able to speak in complete sentences Cardio Rate: regular rate Peripheral pulses: Peripheral pulses 2+ throughout GI Inspection: Yes normal to inspection Palpation (GI): Soft to palpation Skin General skin exam: no rashes or lesions noted Neuro General: patient oriented x3 Extrem Other: Right knee: Normal to inspection. Skin is intact. No abrasion, ecchymosis, erythema, or joint effusion. No tenderness to palpation to the medial or lateral joint lines. Full knee extension and flexion. Crepitus felt with ROM. NVI. Psych Appearance: grossly normal Mental Status: mental status grossly normal Results Reviewed Results Reviewed: XR knee RT 2V FINDINGS/IMPRESSION: ? *? Moderate to severe degenerative changes of the right knee joint with near [id number] apposition of the lateral compartment and tricompartmental osteophytosis, diffuse osteopenia. Status post left knee arthroplasty. ? *? No acute fracture or dislocation.? Assessment & Plan Assessment & Plan (1) Osteoarthritis of right knee: Code(s): M17.11 - Unilateral primary osteoarthritis, right knee Qualifiers: Osteoarthritis type: primary Qualified Code(s): M17.11 - Unilateral primary osteoarthritis, right knee Plan: I discussed in detail the procedure and what to expect pre and post operatively. We discussed the risks, benefits and alternatives to the surgery as well as the rehabilitation course. The risks; which include, but are not limited to infection, bleeding, nerve injury, ongoing pain, swelling, and stiffness, perioperative risk of injury to bones and soft tissues, and blood clots. I?ve answered all questions and with their understanding they have consented to move forward with Right total knee arthroplasty with Dr. Lopez Medications: Discontinued atorvastatin 80 mg PO DAILY 90 days 90 tabs 3RF levothyroxine 112 mcg PO DAILY 90 tabs 2RF E03.9 - Hypothyroidism, unspecified amlodipine 2.5 mg PO DAILY 90 tabs 2RF I10 - Essential (primary) hypertension Patient Instructions: Scribed for Esha Carlos PA-C, by Je Watts director of medical staff services, on 05/26/2023 at 12:45 PM EST. I, Esha Carlos PA-C, have personally reviewed and agree with the information entered by the scribe. Coding Level of Care Code Est Pt Level 3 (67364) Diagnoses Osteoarthritis of right knee M17.11 Osteoarthritis type: primary
== END 2023-05-26 13:36 | disposition home or self-care (01) ==
PROVIDERS: Visit Provider Physician Assistant
DX: M17.11 Unilateral primary osteoarthritis, right knee (principal)
CPT/HCPCS: 99024

== ENCOUNTER → 2023-05-26 12:33 | Outpatient (BNVA) | payer MEDICARE, OTHER, SELFPAY | PROVIDERS: Visit Provider Physician Assistant ==

== ENCOUNTER 2023-05-31 10:51 | Day surgery (SDC) | payer MEDICARE, OTHER, SELFPAY ==
--- NOTE | 2023-05-24 | ECG_ITS ---
Test Reason : PREOP Blood Pressure : / mmHG Vent. Rate : 085 BPM Atrial Rate : 085 BPM P-R Int : 174 ms QRS Dur : 118 ms QT Int : 392 ms P-R-T Axes : 058 -43 083 degrees QTc Int : 466 ms Sinus rhythm with occasional Premature ventricular complexes Possible Left atrial enlargement Left axis deviation Left ventricular hypertrophy with QRS widening ( [place] product ) Abnormal ECG When compared with ECG of 10-SEP-2022 14:38, Premature ventricular complexes are now Present Referred By: Esha Carlos Electronically Signed By:GWYN MAXWELL MD
[2023-05-24 11:13] VITALS: BP 152/67; PULSE 89; RESP 20; BMI 34.0
--- NOTE | 2023-05-24 11:37 | P.CONAN_ITS ---
Documented by User: Ritika Welch NP 06/06/23 08:23 HPI - Anesthesia Eval Consult details Narrative: 82yo F for Right Knee Replacement Total Medically optimized No recent illness No CP/SOB with walking PMFSH Active Problems Active Problems: All Active Problems (Updated 05/24/23 @ 11:07 by Gail Gurrola RN) Eczema (Acute) Lumbar degenerative disc disease (Acute) Anemia (Acute) LFT elevation (Acute) Post-menopausal (Acute) Adult general medical exam (Acute) Cough (Acute) Chronic cough (Acute) Obesity (BMI 30.0-34.9) (Acute) Fatty liver (Acute) Osteoporosis (Acute) Prolapse of vaginal wall (Acute) Hearing deficit (Acute) Osteoarthritis of right knee (Acute) Pre-op evaluation (Acute) Dizziness (Acute) B12 deficiency (Acute) Neck pain (Acute) Overweight (BMI 25.0-29.9) (Acute) Hypercholesterolemia (Acute) Peripheral vascular disease (Acute) Hypothyroid (Acute) Hypertension (Acute) Past Medical History Medical History Anxiety B12 deficiency Cataract Cataract, left eye Cough Dizziness Hypercholesterolemia Hypertension Hypothyroid Impaired vision Neck pain Osteopenia Overweight (BMI 25.0-29.9) Peripheral vascular disease Tinnitus of both ears Family History Family History Father CAD (coronary artery disease) CVD (cardiovascular disease) Mother Hypertension Stroke Aneurysm Family/Other Hyperlipidemia Family history of problems with anesthesia: No Surgical History Surgical History History of colonoscopy History of hysterectomy History of left knee replacement History of lumpectomy of left breast History of right cataract surgery History of thyroidectomy History of Problems with Anesthesia: No Social History Social History Household Members: None Housing: Apartment Are you a primary pet care assistant to a significant other at home: No Do you presently have visiting nurse or other home services: Yes Alcohol intake: never Patient Tobacco Use Status: Former Tobacco user Quit Date: 1987 Tobacco use type: Cigarette Years Smoked: 10 e-Cigarette/Vaping Use: Never Used Second Hand Smoke Exposure: No service: No Current occupational status: retired Cognitive needs: No Hearing needs: No Vision needs: Yes Meds Allergies Allergy/AdvReac Type Severity Reaction Status Date / Time amoxicillin Allergy Intermediate rectal Verified 05/31/23 09:58 bleeding lisinopril Allergy Intermediate cough Verified 05/31/23 09:58 Home Medications Medication Instructions Recorded Confirmed Last Taken Type cholecalciferol (vitamin D3) 25 25 mcg PO BEDTIME 10/20/21 05/26/23 Unknown History mcg (1,000 unit) capsule cyanocobalamin (vitamin B-12) 1,000 mcg PO QPM 10/20/21 05/26/23 Unknown History 1,000 mcg capsule fluticasone propionate 50 1 spray intranasal DAILY 02/16/23 05/26/23 Unknown History mcg/actuation nasal spray,suspension propylene glycol 0.6 % eye drops 1 drp ophthalmic (eye) BEDTIME 02/16/23 05/26/23 Unknown History (Systane Balance) tizanidine 4 mg capsule 4 mg PO BID PRN Muscle Spasm 02/16/23 05/26/23 Unknown History amlodipine 2.5 mg tablet 2.5 mg PO DAILY 05/24/23 05/31/23 05/31/23 History atorvastatin 80 mg tablet 80 mg PO BEDTIME 05/24/23 05/26/23 Unknown History levothyroxine 112 mcg tablet 112 mcg PO DAILY@0600 05/24/23 05/31/23 05/31/23 History Exam Exam Date and Time: May 24, 2023 1137 Height,Weight and Vital Signs: Height 4 ft 9.5 in Weight 72.575 kg Last Vital Signs Pulse 89 05/24/23 11:13 Resp 20 05/24/23 11:13 BP 152/67 H 05/24/23 11:13 O2 Del Method Room Air 05/24/23 11:13 Pertinent Lab Results Pertinent Lab Results: Lab Results 05/24/23 05/24/23 05/24/23 Range/Units 11:30 12:39 12:39 WBC 5.8 (4.8-10.8) X10*3/uL RBC 3.85 L (4.20-5.50) X10*6/uL Hgb 12.9 (12.0-16.0) g/dl Hct 39.0 (37.0-47.0) % MCV 101.3 H (80.0-98.0) fL MCH 33.5 H (27.0-33.0) pg MCHC 33.1 (31.0-35.0) g/dl RDW 12.1 (11.0-16.0) % Plt Count 231 (160-400) X10*3/uL MPV 10.6 (9.4-12.3) fL Immature Gran % (Auto) 0.2 (0.0-0.4) % Neut % (Auto) 58.2 (45-73) % Lymph % (Auto) 35.4 (20-40) % [place] % (Auto) 5.0 (2-11) % Eos % (Auto) 0.5 (0-4) % Baso % (Auto) 0.7 (0-2) % Lymph # (Auto) 2.1 (1.2-4.9) X10*3/uL [place] # (Auto) 0.3 (0.1-1.2) X10*3/uL Eos # (Auto) 0.0 (0.0-0.4) X10*3/uL Baso # (Auto) 0.0 (0.0-0.2) X10*3/uL Abs Immat Gran (auto) 0.01 (0.00-0.03) X10*3/uL Absolute Neuts (auto) 3.4 (2.0-8.3) x10*3/uL Absolute Nucleated RBC 0.000 (0.0-0.012) X10*3/uL Nucleated RBC % (auto) 0.0 (0.0-0.2) /100WBC Sodium 139 (135-145) mmol/L Potassium 4.5 (3.3-5.1) mmol/L Chloride 101 (96-108) mmol/L Carbon Dioxide 28 (22-29) mmol/L Anion Gap 15 (12-20) BUN 16 (9-16) mg/dL Creatinine 0.77 (0.5-1.4) mg/dL Estim Creat Clear Calc 44.8 Estimated GFR > 60 Random Glucose 103 (60-115) mg/dL Calcium 10.1 (8.4-10.2) mg/dL Nasal Screen MRSA (PCR) NEGATIVE (Negative) Nasal S. aureus Screen NEGATIVE (Negative) Nasal MRSA/S.aureus Interp SEE NOTE Blood Type Antibody Screen 05/24/23 Range/Units 12:40 WBC (4.8-10.8) X10*3/uL RBC (4.20-5.50) X10*6/uL Hgb (12.0-16.0) g/dl Hct (37.0-47.0) % MCV (80.0-98.0) fL MCH (27.0-33.0) pg MCHC (31.0-35.0) g/dl RDW (11.0-16.0) % Plt Count (160-400) X10*3/uL MPV (9.4-12.3) fL Immature Gran % (Auto) (0.0-0.4) % Neut % (Auto) (45-73) % Lymph % (Auto) (20-40) % [place] % (Auto) (2-11) % Eos % (Auto) (0-4) % Baso % (Auto) (0-2) % Lymph # (Auto) (1.2-4.9) X10*3/uL [place] # (Auto) (0.1-1.2) X10*3/uL Eos # (Auto) (0.0-0.4) X10*3/uL Baso # (Auto) (0.0-0.2) X10*3/uL Abs Immat Gran (auto) (0.00-0.03) X10*3/uL Absolute Neuts (auto) (2.0-8.3) x10*3/uL Absolute Nucleated RBC (0.0-0.012) X10*3/uL Nucleated RBC % (auto) (0.0-0.2) /100WBC Sodium (135-145) mmol/L Potassium (3.3-5.1) mmol/L Chloride (96-108) mmol/L Carbon Dioxide (22-29) mmol/L Anion Gap (12-20) BUN (9-16) mg/dL Creatinine (0.5-1.4) mg/dL Estim Creat Clear Calc Estimated GFR Random Glucose (60-115) mg/dL Calcium (8.4-10.2) mg/dL Nasal Screen MRSA (PCR) (Negative) Nasal S. aureus Screen (Negative) Nasal MRSA/S.aureus Interp Blood Type A Positive Antibody Screen NEGATIVE Narrative Narrative: EKG 04/2023 Vent. Rate : 085 BPM ? ? Atrial Rate : 085 BPM ?? P-R Int : 174 ms? QRS Dur : 118 ms ? ? QT Int : 392 ms ? ? ? P-R-T Axes : 058 -43 083 degrees ?? QTc Int : 466 ms ? Sinus rhythm with occasional Premature ventricular complexes Possible Left atrial enlargement Left axis deviation Left ventricular hypertrophy with QRS widening ( Rocky product ) Abnormal ECG When compared with ECG of 10-SEP-2022 14:38, Premature ventricular complexes are now Present Airway Mallampati Class: II TM Dist: >3cm Neck ROM: Full Denture: Upper Loose/Missing/Broken Teeth: Yes (missing lower teeth, only 8 remain) Heart: RRR Lungs: CTAB Assessment and Plan Assessment Anesthesia Assessment: Anesthesia Plan Discussed and PAT Visit Final Anesthetic Review Family History of Problems with Anesthesia: No History of Problems with Anesthesia: No Documented by User: Ham Saldana MD 06/09/23 14:22 [facility] Past Medical History Medical History Anxiety B12 deficiency Cataract Cataract, left eye Cough Dizziness Hypercholesterolemia Hypertension Hypothyroid Impaired vision Neck pain Osteopenia Overweight (BMI 25.0-29.9) Peripheral vascular disease Tinnitus of both ears Family History Family History Father CAD (coronary artery disease) CVD (cardiovascular disease) Mother Hypertension Stroke Aneurysm Family/Other Hyperlipidemia Surgical History Surgical History History of colonoscopy History of hysterectomy History of left knee replacement History of lumpectomy of left breast History of right cataract surgery History of thyroidectomy Social History Social History Household Members: None Housing: Apartment Are you a primary pet care assistant to a significant other at home: No Do you presently have visiting nurse or other home services: Yes Alcohol intake: never Patient Tobacco Use Status: Former Tobacco user Quit Date: 1987 Tobacco use type: Cigarette Years Smoked: 10 e-Cigarette/Vaping Use: Never Used Second Hand Smoke Exposure: No service: No Current occupational status: retired Cognitive needs: No Hearing needs: No Vision needs: Yes Meds Allergies Allergy/AdvReac Type Severity Reaction Status Date / Time amoxicillin Allergy Intermediate rectal Verified 05/31/23 09:58 bleeding lisinopril Allergy Intermediate cough Verified 05/31/23 09:58 Home Medications Medication Instructions Recorded Confirmed Last Taken Type cholecalciferol (vitamin D3) 25 25 mcg PO BEDTIME 10/20/21 05/26/23 Unknown History mcg (1,000 unit) capsule cyanocobalamin (vitamin B-12) 1,000 mcg PO QPM 10/20/21 05/26/23 Unknown History 1,000 mcg capsule fluticasone propionate 50 1 spray intranasal DAILY 02/16/23 05/26/23 Unknown History mcg/actuation nasal spray,suspension propylene glycol 0.6 % eye drops 1 drp ophthalmic (eye) BEDTIME 02/16/23 05/26/23 Unknown History (Systane Balance) tizanidine 4 mg capsule 4 mg PO BID PRN Muscle Spasm 02/16/23 05/26/23 Unknown History amlodipine 2.5 mg tablet 2.5 mg PO DAILY 05/24/23 05/31/23 05/31/23 History atorvastatin 80 mg tablet 80 mg PO BEDTIME 05/24/23 05/26/23 Unknown History levothyroxine 112 mcg tablet 112 mcg PO DAILY@0600 05/24/23 05/31/23 05/31/23 History Assessment and Plan Final Anesthetic Review NPO: Yes ASA Class: III Final Preanesthetic Review: No Changes in Pt Med Stat, Meds/Allgs Chart Reviewed, Consent Obtained/Reviewed and Anes Risks/Benef Reviewed Patient Risk: Intermediate Procedure Risk: Intermediate Anesthetic Plan Anesthetic Plan: GA Disposition: Standard PACU
[2023-05-24 12:40] LABS: MANUAL DIFF FLAG NO
[2023-05-24 13:45] LABS: MRSA Nasal PCR NEGATIVE (Negative); SA Nasal PCR NEGATIVE (Negative)
[2023-05-24 14:00] LABS: Basophils Percent Auto 0.7 % (0-2); Eosinophils Percent Auto 0.5 % (0-4); Hemoglobin 12.9 g/dl (12.0-16.0); Imm Gran Abs Auto 0.01 X10*3/uL (0.00-0.03); Imm Gran Pct Auto 0.2 % (0.0-0.4); Lymphocytes Absolute Auto 2.1 X10*3/uL (1.2-4.9); Lymphocytes Percent Auto 35.4 % (20-40); Mean Corpuscular HGB Conc 33.1 g/dl (31.0-35.0); Mean Corpuscular Hemoglobin 33.5 pg (27.0-33.0); Mean Corpuscular Volume 101.3 fL (80.0-98.0); Mean Platelet Volume 10.6 fL (9.4-12.3); Monocytes Absolute Auto 0.3 X10*3/uL (0.1-1.2); Neutrophils Absolute Auto 3.4 x10*3/uL (2.0-8.3); Neutrophils Percent Auto 58.2 % (45-73); Platelet Count 231 X10*3/uL (160-400); Red Blood Count 3.85 X10*6/uL (4.20-5.50); Red Cell Distribution Width 12.1 % (11.0-16.0); White Blood Count 5.8 X10*3/uL (4.8-10.8)
[2023-05-24 16:55] LABS: Anion Gap 15 (12-20); Blood Urea Nitrogen 16 mg/dL (9-16); Calcium 10.1 mg/dL (8.4-10.2); Carbon Dioxide 28 mmol/L (22-29); Chloride 101 mmol/L (96-108); Creatinine Clr Calc Pharmacy 44.8; Estimated Glomerular Filt Rate > 60; Glucose Random 103 mg/dL (60-115); Potassium 4.5 mmol/L (3.3-5.1); Sodium 139 mmol/L (135-145)
[2023-05-31] VITALS (11 sets, daily range): BP systolic 120–163; BP diastolic 54–72; PULSE 62–87; RESP 16–19; TEMP 36.1–36.8; O2SAT 93–100
--- NOTE | ~2023-05-31 | XR_ITS ---
EXAMINATION: XR KNEE, RIGHT CLINICAL INFORMATION: Status post right total knee arthroplasty. COMPARISON: None available. TECHNIQUE: Increased of the right knee. FINDINGS: The patient is status post right knee arthroplasty showing good anatomic alignment and no evidence for hardware malfunction. Mild to moderate intra-articular and soft tissue air is noted. Multilevel surgical skin jj are seen anteriorly. XR/XR knee RT 2V IMPRESSION: Post surgical changes. No hardware abnormality. No acute fracture.
[2023-05-31 10:45] LABS: Hematocrit 38.3 % (37.0-47.0); Hemoglobin 12.7 g/dl (12.0-16.0)
[2023-05-31] MEDS: Lactated Ringers 1,000 ML 100 ML IVCONT ×2 (10:58→15:49)
--- NOTE | 2023-05-31 14:07 | PM.OP ---
Brief Operative Note Date of Service: 05/31/23 Pre-op diagnosis: Right knee OA Post-op diagnosis: same Procedure: Right TKA Implants: Strtyker Triathlon posterior stabilized cemented 12/03/18 Surgeon: Braxton Lopez MD Anesthesia: regional and spinal Was an Motor Carrier Inspector used for this Procedure?: Yes Motor Carrier Inspector: Esha Carlos Estimated blood loss (mL): 25 Tourniquet time (min): 59 IV fluids (mL): 800 Pathology: other Condition: stable Disposition: PACU
--- NOTE | 2023-05-31 14:16 | PM.PNORT ---
Subjective Subjective Date of Service: 06/02/23 Interval history: POD2 s/p RTKA. Patient is resting in bed comfortably. No overnight events. Pain is managed. No additional complaints. Physical Exam Vital Signs: Vital Signs: Last Vital Signs Temp 97.9 F 05/31/23 11:18 Pulse 81 05/31/23 11:18 Resp 18 05/31/23 11:18 BP 163/56 H 05/31/23 11:18 Pulse Ox 96 05/31/23 11:18 O2 Del Method Room Air 05/31/23 11:18 BMI result Body Mass Index 34.0 Const: General: cooperative, healthy appearing and no acute distress Resp: Effort & Inspection: normal respiratory effort and able to speak in complete sentences Cardio: Rate: regular rate Peripheral pulses: Peripheral pulses 2+ throughout GI: Palpation (GI): Soft to palpation Skin: Lesions: no lesions Rashes: no rashes Extrem: Other: Right knee Aquacel is c/d/i. Able to dorsi/plantar flex. NVI. Procedures Date of Service Date of Service: 06/02/23 Progress Note: A&P Assessment and plan (1) Status post total knee replacement, right: Status: Acute Plan Continue pain mgmnt cont ASA for dvt ppx cont PT for RTKA Dispo planning-Pending PT eval, pain mgmnt Time Spent With Patient Time: Total time managing care of this patient today ____ minutes. Quality Stroke Does the patient have a stroke diagnosis?: No VTE Prior VTE?: No VTE Risk Level:: Surgical - very high VTE Device Contraindication: N/A - Device Ordered VTE Drug Contraindication: N/A - Med Ordered
--- NOTE | 2023-05-31 14:32 | PHA.MEDREC ---
Pharmacy Consult ? Medication Reconciliation Pharmacy has completed the medication reconciliation. Reviewed med rec done by nursing (Gail).
[2023-05-31] MEDS: Acetaminophen 1,000 MG/100 ML PIGGYBACK 400 MG IV (15:49)
[2023-05-31] MEDS: 0.9 % Sodium Chloride Flush 3 ML SYRINGE IVFLUSH ×2 (15:57→23:55)
--- NOTE | 2023-05-31 16:24 | P.CONHOSP_ITS ---
History of Present Illness Data of Consult Service Date: 05/31/23 Requesting physician: Esha Carlos Primary Care Provider: MD JAYASHREE Gregg Reason for consult: medical management 82-year-old female with history of hypertension, hypercholesterolemia, peripheral vascular disease, hypothyroidism, osteoarthritis, and osteoporosis admitted to Orthopedic surgery for management of osteoarthritis of the right knee s/p right TKA with consult placed hospitalist service for medical m anagement. She has some post op hypoxia but has been weaned from supplemental O2 and is using incentive spirometry. The patient is resting comfortably and currently has no complaints. She feels her pain is reasonably controlled. Denies any alcohol use, illicit drug use, or cigarette smoking. Review of Systems Review of Systems: General: No fevers, malaise, unintentional weight loss HEENT: No blurred vision, diplopia. No sore throat, nasal congestion, rhinorrhea, sinus pain, ear pain Cardiovascular: No chest pain, palpitations, or leg edema Respiratory: No shortness of breath, wheezing, cough GI: No abdominal pain, nausea, vomiting, diarrhea, constipation, melena, hematochezia : No dysuria, hematuria, increased urinary frequency, decreased urinary output MSK: No myalgia, back pain Neuro: No headaches, weakness, paresthesias Skin: No rashes or lesions [facility] Medical History Anxiety B12 deficiency Cataract Cataract, left eye Cough Dizziness Hypercholesterolemia Hypertension Hypothyroid Impaired vision Neck pain Osteopenia Overweight (BMI 25.0-29.9) Peripheral vascular disease Tinnitus of both ears Family History Father CAD (coronary artery disease) CVD (cardiovascular disease) Mother Hypertension Stroke Aneurysm Family/Other Hyperlipidemia Surgical History History of colonoscopy History of hysterectomy History of left knee replacement History of lumpectomy of left breast History of right cataract surgery History of thyroidectomy Social History Household Members: None Housing: Apartment Are you a primary med care manager to a significant other at home: No Do you presently have visiting nurse or other home services: Yes Alcohol intake: never Patient Tobacco Use Status: Former Tobacco user Quit Date: 1987 Tobacco use type: Cigarette Years Smoked: 10 e-Cigarette/Vaping Use: Never Used Second Hand Smoke Exposure: No Use of substances other than those prescribed or required for medical reasons: No Have you been hit, kicked, punched, or otherwise hurt by someone within the past year? If so, by whom?: No Do you feel safe in your current relationship?: No Current Relationship Is there a partner from a previous relationship who is making you feel unsafe now?: No Are you made to feel afraid or neglected: No Are you DNR?: Yes Advance Directives Information Provided: Yes (states has official form & has MOLST form) Advance Directives on File: No Do you have thoughts of harming others: None Do you have a plan to hurt others: No Plan Recently lost weight without trying: No How much weight loss: Not applicable Eating poorly because of decreased appetite: No Nutrition screen score: 0 Nutrition Risks: No Nutritional Risk Patient : No : No Poor oral hygiene: No service: No Current occupational status: retired Cognitive needs: No Hearing needs: No Vision needs: Yes Meds Allergies Allergy/AdvReac Type Severity Reaction Status Date / Time amoxicillin Allergy Intermediate rectal Verified 05/31/23 09:58 bleeding lisinopril Allergy Intermediate cough Verified 05/31/23 09:58 Active Medications: Current Medications Acetaminophen (Acetaminophen 325 Mg Tablet) 650 mg PO Q6H PRN PRN Reason: Pain, Mild (Pain Scale 1-3) Aspirin (Aspirin 325 Mg Tablet) 325 mg PO BID [facility] Celecoxib (Celecoxib 200 Mg Capsule) 200 mg PO BID [facility] Docusate Sodium (Docusate Sodium 100 Mg Capsule) 100 mg PO BID [facility] Hydromorphone HCl (Hydromorphone Hcl 0.5 Mg/0.5 Ml Syringe) 0.25 mg IVPUSH Q5M PRN; Protocol PRN Reason: Pain, Severe (Pain Scale 7-10) Hydromorphone HCl (Hydromorphone Hcl 0.5 Mg/0.5 Ml Syringe) 0.25 mg IVPUSH Q4H PRN; Protocol PRN Reason: Pain, Severe (Pain Scale 7-10) Lactated Ringer's (Lr) 1,000 mls @ 100 mls/hr IVCONT .Q10H [facility] Stop: 06/01/23 14:18 Last Admin: 05/31/23 15:49 Dose: 100 mls/hr Cefazolin Sodium/Dextrose (Ancef) 2 gm in 50 mls @ 100 mls/hr IV POSTOP ONE Stop: 05/31/23 19:29 Ondansetron HCl (Ondansetron Hcl 4 Mg/2 Ml Vial) 4 mg IVPUSH ONCE PRN PRN Reason: Nausea and Vomiting Ondansetron HCl (Ondansetron Hcl 4 Mg/2 Ml Vial) 4 mg IVPUSH Q8H PRN PRN Reason: Nausea and Vomiting Oxycodone HCl (Oxycodone Hcl Immed Release 5 Mg Tablet) 5 mg PO ONCE PRN PRN Reason: Pain, Severe (Pain Scale 7-10) Oxycodone HCl (Oxycodone Hcl Immed Release 5 Mg Tablet) 5 mg PO Q4H PRN PRN Reason: Pain, Moderate(Pain Scale 4-6) Sodium Chloride (0.9 % Sodium Chloride Flush 3 Ml Syringe) 3 [facility] Last Admin: 05/31/23 15:57 Dose: 3 ml Home Medications Medication Instructions Recorded Confirmed Last Taken Type cholecalciferol (vitamin D3) 25 25 mcg PO BEDTIME 10/20/21 05/26/23 Unknown History mcg (1,000 unit) capsule cyanocobalamin (vitamin B-12) 1,000 mcg PO QPM 10/20/21 05/26/23 Unknown History 1,000 mcg capsule fluticasone propionate 50 1 spray intranasal DAILY 02/16/23 05/26/23 Unknown History mcg/actuation nasal spray,suspension propylene glycol 0.6 % eye drops 1 drp ophthalmic (eye) BEDTIME 02/16/23 05/26/23 Unknown History (Systane Balance) tizanidine 4 mg capsule 4 mg PO BID PRN Muscle Spasm 02/16/23 05/26/23 Unknown History amlodipine 2.5 mg tablet 2.5 mg PO DAILY 05/24/23 05/31/23 05/31/23 History atorvastatin 80 mg tablet 80 mg PO BEDTIME 05/24/23 05/26/23 Unknown History levothyroxine 112 mcg tablet 112 mcg PO DAILY@0600 05/24/23 05/31/23 05/31/23 History Physical Exam Vital Signs and Narrative: Vital Signs: Last Vital Signs Temp 96.9 F 05/31/23 15:41 Pulse 87 05/31/23 15:41 Resp 18 05/31/23 15:41 BP 162/72 H 05/31/23 15:41 Pulse Ox 99 05/31/23 15:41 O2 Del Method Room Air 05/31/23 15:41 O2 Flow Rate 2 05/31/23 14:55 BMI result Body Mass Index 34.0 Constitutional - Awake and Alert, No apparent distress Eyes - PERRLA, EOMI Cardiovascular - S1S2, RRR, No edema Respiratory - Normal lung expansion, Normal respiratory effort, No respiratory distress, CTA bilaterally Gastrointestinal - NT / ND; +BS; No rebound or guarding Extremities - no calf tenderness bilaterally, no swelling Musculoskeletal - Normal inspection, right knee post op bandage in place Skin - Warm/Dry Neurological - Alert & oriented x3 Psychological - Appropriate affect Results Labs 05/31/23 10:36 05/24/23 12:39 Imaging Radiologist's Impressions: Impressions Knee X-Ray 05/31/23 15:30 IMPRESSION: Post surgical changes. No hardware abnormality. No acute fracture. Assessment and Plan (1) Osteoarthritis of right knee: Qualifiers: Osteoarthritis type: primary Qualified Code(s): M17.11 - Unilateral primary osteoarthritis, right knee Status: Acute Plan 82-year-old female with history of hypertension, hypercholesterolemia, peripheral vascular disease, hypothyroidism, osteoarthritis, and osteoporosis admitted to Orthopedic surgery for management of osteoarthritis of the right knee s/p right TKA with consult placed hospitalist service for medical management. #OA right knee s/p right TKA POD 0 -plan per ortho surgery #HTN -reasonably controlled -resume amlodipine 2.5 mg tomorrow a.m. # hypercholesterolemia -continue statin # hypothyroidism -continue Synthroid Thank you for allowing me to participate in this consult. Signing off at this time. Please do not hesitate to call for further questions. Time Spent With Patient Time: Total time managing care of this patient today ____ minutes.
[2023-05-31] MEDS: oxyCODONE HCl Immed Release 5 MG TABLET PO (18:26)
[2023-05-31] MEDS: ceFAZolin Sodium/Dextrose,Iso 2 GM/50 ML PIGGYBACK IV (18:27)
[2023-05-31] MEDS: Celecoxib 200 MG CAPSULE PO (21:08)
[2023-05-31] MEDS: Atorvastatin Calcium 80 MG TABLET PO (21:08)
[2023-05-31] MEDS: Docusate Sodium 100 MG CAPSULE PO (21:08)
[2023-06-01] VITALS (7 sets, daily range): BP systolic 137–164; BP diastolic 60–70; PULSE 58–86; RESP 16–18; TEMP 36.2–37.2; O2SAT 91–98
[2023-06-01] MEDS: Lactated Ringers 1,000 ML 100 ML IVCONT (02:14)
[2023-06-01] MEDS: Levothyroxine Sodium 112 MCG TABLET PO (05:31)
[2023-06-01 06:50] LABS: MANUAL DIFF FLAG NO
[2023-06-01 06:54] LABS: Basophils Percent Auto 0.2 % (0-2); Hemoglobin 11.1 g/dl (12.0-16.0); Imm Gran Abs Auto 0.03 X10*3/uL (0.00-0.03); Imm Gran Pct Auto 0.3 % (0.0-0.4); Lymphocytes Absolute Auto 1.5 X10*3/uL (1.2-4.9); Lymphocytes Percent Auto 15.5 % (20-40); Mean Corpuscular HGB Conc 33.6 g/dl (31.0-35.0); Mean Corpuscular Hemoglobin 33.4 pg (27.0-33.0); Mean Corpuscular Volume 99.4 fL (80.0-98.0); Mean Platelet Volume 10.4 fL (9.4-12.3); Monocytes Absolute Auto 0.7 X10*3/uL (0.1-1.2); Monocytes Percent Auto 7.3 % (2-11); Neutrophils Absolute Auto 7.4 x10*3/uL (2.0-8.3); Neutrophils Percent Auto 76.7 % (45-73); Platelet Count 200 X10*3/uL (160-400); Red Blood Count 3.32 X10*6/uL (4.20-5.50); Red Cell Distribution Width 11.8 % (11.0-16.0); White Blood Count 9.6 X10*3/uL (4.8-10.8)
[2023-06-01 07:09] LABS: Anion Gap 16 (12-20); Blood Urea Nitrogen 15 mg/dL (9-16); Calcium 9.4 mg/dL (8.4-10.2); Carbon Dioxide 22 mmol/L (22-29); Chloride 103 mmol/L (96-108); Creatinine Clr Calc Pharmacy 52.3; Estimated Glomerular Filt Rate > 60; Glucose Fasting 129 mg/dL (60-99); Potassium 4.6 mmol/L (3.3-5.1); Sodium 136 mmol/L (135-145)
--- NOTE | 2023-06-01 07:10 | PM.PNORT ---
Subjective Subjective Date of Service: 06/01/23 Interval history: POD1 s/p RTKA. Patient is resting in bed comfortably. No overnight events. Pain is managed. No additional complaints. Physical Exam Vital Signs: Vital Signs: Last Vital Signs Temp 97.3 F 06/01/23 03:02 Pulse 63 06/01/23 03:02 Resp 16 06/01/23 03:02 BP 150/65 H 06/01/23 03:02 Pulse Ox 97 06/01/23 03:02 O2 Del Method Room Air 06/01/23 03:02 O2 Flow Rate 2 05/31/23 14:55 BMI result Body Mass Index 34.0 Const: General: cooperative, healthy appearing and no acute distress Resp: Effort & Inspection: normal respiratory effort and able to speak in complete sentences Cardio: Rate: regular rate Peripheral pulses: Peripheral pulses 2+ throughout GI: Palpation (GI): Soft to palpation Skin: Lesions: no lesions Rashes: no rashes Extrem: Other: Right knee Aquacel is c/d/i. Able to dorsi/plantar flex. NVI. Procedures Date of Service Date of Service: 06/01/23 Progress Note: A&P Assessment and plan (1) Status post total knee replacement, right: Status: Acute Plan Continue pain mgmnt Begin ASA for dvt ppx begin PT for RTKA Dispo planning-Pending PT eval, pain mgmnt Time Spent With Patient Time: Total time managing care of this patient today ____ minutes. Quality Stroke Does the patient have a stroke diagnosis?: No VTE Prior VTE?: No VTE Risk Level:: Medical - moderate - high VTE Device Contraindication: N/A - Device Ordered VTE Drug Contraindication: N/A - Med Ordered
[2023-06-01] MEDS: amLODIPine Besylate 2.5 MG TABLET PO (08:16)
[2023-06-01] MEDS: oxyCODONE HCl Immed Release 5 MG TABLET PO ×2 (08:16→17:39)
[2023-06-01] MEDS: Celecoxib 200 MG CAPSULE PO ×2 (08:16→21:57)
[2023-06-01] MEDS: 0.9 % Sodium Chloride Flush 3 ML SYRINGE IVFLUSH (08:16)
[2023-06-01] MEDS: Docusate Sodium 100 MG CAPSULE PO ×2 (08:20→21:58)
--- NOTE | 2023-06-01 11:35 | MHC.CM.PN ---
IMM DELIVERED LIVES ALONE BUT GRANDSON LIVES ABOVE HER. USES CANE FOR MOBILITY. INDEPENDENT AT BASELINE +HCP PCP DR. MORRIS DP: HOME WITH [facility]. DAUGHTER MADONNA WILL TRANSPORT ([phone]) CM WILL CONTINUE TO FOLLOW FOR DC NEEDS.
--- NOTE | 2023-06-01 13:12 | HO.POSTANES ---
Post Anesthesia Evaluation Post Anesthesia Evaluation Date of Service: 06/01/23 Vital Signs: Vital Signs Temp Pulse Resp BP Pulse Ox O2 Del Method 06/01/23 12:00 97.3 F 58 18 139/61 92 Room Air 06/01/23 08:00 97.6 F 83 18 151/70 H 98 Room Air 06/01/23 03:02 97.3 F 63 16 150/65 H 97 Room Air Anesthesia: Spinal and Nerve Block Mental Status: Awake Pain Control: Satisfactory Nausea/Vomiting: None Hydration: Adequate Anesthesia-Related Issues: No Anes. Related Issues
[2023-06-01] MEDS: Aspirin 325 MG TABLET PO ×2 (14:20→21:57)
[2023-06-01] MEDS: ondansetron HCL 4 MG/2 ML VIAL IVPUSH (17:39)
[2023-06-01] MEDS: Atorvastatin Calcium 80 MG TABLET PO (21:57)
[2023-06-02 03:09] VITALS: BP 153/67; PULSE 86; RESP 16; TEMP 37; O2SAT 93
[2023-06-02] MEDS: Levothyroxine Sodium 112 MCG TABLET PO (05:30)
[2023-06-02 06:44] LABS: MANUAL DIFF FLAG NO
[2023-06-02 06:53] LABS: Basophils Percent Auto 0.2 % (0-2); Eosinophils Percent Auto 0.2 % (0-4); Hematocrit 32.3 % (37.0-47.0); Hemoglobin 10.8 g/dl (12.0-16.0); Imm Gran Abs Auto 0.06 X10*3/uL (0.00-0.03); Imm Gran Pct Auto 0.7 % (0.0-0.4); Lymphocytes Absolute Auto 1.8 X10*3/uL (1.2-4.9); Lymphocytes Percent Auto 19.5 % (20-40); Mean Corpuscular HGB Conc 33.4 g/dl (31.0-35.0); Mean Corpuscular Volume 98.8 fL (80.0-98.0); Mean Platelet Volume 10.8 fL (9.4-12.3); Neutrophils Absolute Auto 6.2 x10*3/uL (2.0-8.3); Neutrophils Percent Auto 68.4 % (45-73); Platelet Count 178 X10*3/uL (160-400); Red Blood Count 3.27 X10*6/uL (4.20-5.50); Red Cell Distribution Width 12.2 % (11.0-16.0); White Blood Count 9.1 X10*3/uL (4.8-10.8)
[2023-06-02 07:07] LABS: Anion Gap 15 (12-20); Blood Urea Nitrogen 11 mg/dL (9-16); Calcium 9.2 mg/dL (8.4-10.2); Carbon Dioxide 24 mmol/L (22-29); Chloride 100 mmol/L (96-108); Creatinine Clr Calc Pharmacy 53.9; Estimated Glomerular Filt Rate > 60; Glucose Fasting 116 mg/dL (60-99); Potassium 4.5 mmol/L (3.3-5.1); Sodium 134 mmol/L (135-145)
[2023-06-02 07:44] VITALS: BP 142/69; PULSE 78; RESP 18; TEMP 36.7; O2SAT 91
[2023-06-02] MEDS: Milk of Magnesia 30 ML ORAL.SUSP 15 ML PO (08:59)
[2023-06-02] MEDS: oxyCODONE HCl Immed Release 5 MG TABLET PO (08:59)
[2023-06-02] MEDS: Aspirin 325 MG TABLET PO ×2 (08:59→21:04)
[2023-06-02] MEDS: 0.9 % Sodium Chloride Flush 3 ML SYRINGE IVFLUSH ×2 (09:00→19:26)
[2023-06-02] MEDS: Celecoxib 200 MG CAPSULE PO ×2 (09:00→21:05)
[2023-06-02] MEDS: Docusate Sodium 100 MG CAPSULE PO ×2 (09:00→21:05)
[2023-06-02] MEDS: amLODIPine Besylate 2.5 MG TABLET PO (09:00)
[2023-06-02 11:44] VITALS: BP 151/67; PULSE 78; RESP 16; TEMP 36.6; O2SAT 96
--- NOTE | 2023-06-02 15:07 | MHC.CM.PN ---
T/W MET WITH PATIENT AND HER DAUGHTER (WITH PERMISSION) PATIENT [facility] AG[facility] TO [facility], NOW PLACED PATIENT AWARE THAT [facility] MAY NOT BE CONTRACTED WITH [facility], BUT OPEN TO THE REFERRAL JUST THE SAME PATIENT WILL DECIDE TOMORROW IF SHE IS TO GO HOME WITH [facility] OR ACCEPT A BED OFFER. SHE IS ALSO AWARE THAT ADDITIONAL REFERRALS MAY NEED TO BE MADE.
[2023-06-02 15:32] VITALS: BP 139/65; PULSE 65; RESP 18; TEMP 36.5; O2SAT 95
[2023-06-02 19:34] VITALS: BP 162/68; PULSE 69; RESP 20; TEMP 36.3; O2SAT 94
[2023-06-02] MEDS: Atorvastatin Calcium 80 MG TABLET PO (21:05)
[2023-06-03] VITALS: BP 116/55; PULSE 84; RESP 16; TEMP 36.4; O2SAT 95
[2023-06-03 04:00] VITALS: BP 127/60; PULSE 72; RESP 16; TEMP 36.4; O2SAT 95
[2023-06-03 06:22] LABS: MANUAL DIFF FLAG NO
[2023-06-03 06:27] LABS: Basophils Absolute Auto 0.1 X10*3/uL (0.0-0.2); Basophils Percent Auto 0.5 % (0-2); Eosinophils Absolute Auto 0.2 X10*3/uL (0.0-0.4); Eosinophils Percent Auto 1.8 % (0-4); Hemoglobin 10.8 g/dl (12.0-16.0); Imm Gran Abs Auto 0.04 X10*3/uL (0.00-0.03); Imm Gran Pct Auto 0.4 % (0.0-0.4); Lymphocytes Absolute Auto 2.6 X10*3/uL (1.2-4.9); Lymphocytes Percent Auto 27.5 % (20-40); Mean Corpuscular HGB Conc 33.8 g/dl (31.0-35.0); Mean Corpuscular Hemoglobin 33.6 pg (27.0-33.0); Mean Corpuscular Volume 99.7 fL (80.0-98.0); Mean Platelet Volume 10.7 fL (9.4-12.3); Monocytes Absolute Auto 0.9 X10*3/uL (0.1-1.2); Monocytes Percent Auto 9.2 % (2-11); Neutrophils Absolute Auto 5.6 x10*3/uL (2.0-8.3); Neutrophils Percent Auto 60.6 % (45-73); Platelet Count 174 X10*3/uL (160-400); Red Blood Count 3.21 X10*6/uL (4.20-5.50); Red Cell Distribution Width 12.1 % (11.0-16.0); White Blood Count 9.3 X10*3/uL (4.8-10.8)
[2023-06-03] MEDS: Levothyroxine Sodium 112 MCG TABLET PO (06:38)
[2023-06-03 07:02] LABS: Anion Gap 16 (12-20); Blood Urea Nitrogen 10 mg/dL (9-16); Calcium 9.1 mg/dL (8.4-10.2); Carbon Dioxide 23 mmol/L (22-29); Chloride 102 mmol/L (96-108); Creatinine Clr Calc Pharmacy 52.3; Estimated Glomerular Filt Rate > 60; Glucose Fasting 103 mg/dL (60-99); Potassium 4.4 mmol/L (3.3-5.1); Sodium 137 mmol/L (135-145)
[2023-06-03 07:24] VITALS: BP 149/67; PULSE 68; RESP 16; TEMP 36.4; O2SAT 94
[2023-06-03 09:19] VITALS: BP 149/67; PULSE 68; O2SAT 94
[2023-06-03] MEDS: Docusate Sodium 100 MG CAPSULE PO (09:21)
[2023-06-03] MEDS: Aspirin 325 MG TABLET PO (09:21)
[2023-06-03] MEDS: 0.9 % Sodium Chloride Flush 3 ML SYRINGE IVFLUSH (09:21)
[2023-06-03] MEDS: Celecoxib 200 MG CAPSULE PO (09:21)
[2023-06-03] MEDS: amLODIPine Besylate 2.5 MG TABLET PO (09:22)
[2023-06-03] MEDS: oxyCODONE HCl Immed Release 5 MG TABLET PO (09:27)
--- NOTE | 2023-06-03 09:54 | P.DS_ITS ---
DS: Providers Provider Date of Service: 06/03/23 Primary care physician: Sagar Stout MD Consults: 05/31/23 15:22 Consult to Hospitalist Routine Comment: Consulting Provider: Hospitalist Reason For Exam: h/o bradycardia intraop-PVCs at baseline DS: Diagnosis Discharge Diagnosis (1) Status post total knee replacement, right: Status: Acute DS: Summary Hospital Course Hospital Course: The patient underwent a successful right total knee arthroplasty on, was transferred to PACU and then to the floor to recover. During their stay, their vitals were stable, afebrile at 97.5. Labs were unremarkable, H/H 10.8/32.0 . POD 1 he was started on ASA 325mg tabs po for DVT ppx, they also received Physical Therapy services twice a day. Physical therapy should include gait training, ROM to tolerance and quad strength. He is WBAT. Prior to discharge, her dressing was changed, incision clean dry and intact, new Aquacel dressing applied. The Aquacel dressing should remain intact and dry at all times. Any concerns with the dressing, please contact orthopedic office. No showering. The plan is to be discharged to [facility]. Time Spent with Patient Time attestation: Total time managing care of this patient today ____ minutes. Discharge coordination time: Less than 30 minutes Quality: Safe Use of Opioids Does Pt have an Active Cancer Diagnosis on the Problem List?: No Quality: Stroke Does the patient have a stroke diagnosis?: No Physical Exam Vital Signs: Vital Signs: Last Vital Signs Temp 97.5 F 06/03/23 07:24 Pulse 68 06/03/23 09:19 Resp 16 06/03/23 07:24 BP 149/67 H 06/03/23 09:19 Pulse Ox 94 06/03/23 09:19 O2 Del Method Room Air 06/03/23 07:24 O2 Flow Rate 2 05/31/23 14:55 BMI result Body Mass Index 34.0 Const: General: cooperative, healthy appearing and no acute distress Resp: Effort & Inspection: normal respiratory effort and able to speak in complete sentences Cardio: Rate: regular rate Peripheral pulses: Peripheral pulses 2+ throughout GI: Palpation (GI): Soft to palpation Skin: Lesions: no lesions Rashes: no rashes Extrem: Other: Right kneeincision is c/d/i. Able to dorsi/plantar flex. NVI. DS: Data Data Completed and Pending Pending studies at discharge: Pending at discharge 05/31/23 13:33 Surgical [PTH] Routine Labs on day of discharge: Laboratory Results - last 24 hr 06/03/23 06/03/23 05:54 05:54 WBC 9.3 RBC 3.21 L Hgb 10.8 L Hct 32.0 L MCV 99.7 H MCH 33.6 H MCHC 33.8 RDW 12.1 Plt Count 174 MPV 10.7 Immature Gran % (Auto) 0.4 Neut % (Auto) 60.6 Lymph % (Auto) 27.5 Piatt % (Auto) 9.2 Eos % (Auto) 1.8 Baso % (Auto) 0.5 Lymph # (Auto) 2.6 Piatt # (Auto) 0.9 Eos # (Auto) 0.2 Baso # (Auto) 0.1 Abs Immat Gran (auto) 0.04 H Absolute Neuts (auto) 5.6 Absolute Nucleated RBC 0.000 Nucleated RBC % (auto) 0.0 Sodium 137 Potassium 4.4 Chloride 102 Carbon Dioxide 23 Anion Gap 16 BUN 10 Creatinine 0.66 Estim Creat Clear Calc 52.3 Estimated GFR > 60 Fasting Glucose 103 H Calcium 9.1 Discharge Plan Discharge Patient Disposition: er SNF Referrals: Anette May PA-C [Physician Applications Development Analyst] - 2 Weeks (06/16/23 1:15 [facility] Anette May PA-C) Discharge Medications: New docusate sodium 100 mg Capsule 100 mg PO BID 14 Days Qty: 28 0RF celecoxib 200 mg Capsule 200 mg PO BID 30 Days Qty: 60 2RF aspirin 325 mg Tablet 325 mg PO BID 42 Days Qty: 84 0RF oxycodone 5 mg Tablet 5 mg PO Q4H PRN (Reason: Pain, Moderate(Pain Scale 4-6)) 7 Days Qty: 42 0RF Rx Instructions: Partial Fill upon patient request. acetaminophen 325 mg Tablet 650 mg PO Q6H PRN (Reason: Pain, Mild (Pain Scale 1-3)) 30 Days Qty: 240 2RF Continued atorvastatin 80 mg tablet 80 mg PO BEDTIME amlodipine 2.5 mg tablet 2.5 mg PO DAILY levothyroxine 112 mcg tablet 112 mcg PO DAILY@0600 cyanocobalamin (vitamin B-12) 1,000 mcg capsule 1,000 mcg PO QPM cholecalciferol (vitamin D3) 25 mcg (1,000 unit) capsule 25 mcg PO BEDTIME meclizine 25 mg tablet 25 mg PO TID PRN (Reason: dizziness) 7 Days Qty: 21 0RF tizanidine 4 mg capsule 4 mg PO BID PRN (Reason: Muscle Spasm) fluticasone propionate 50 mcg/actuation spray,suspension 1 spray intranasal DAILY Rx Instructions: administer into each nostril Systane Balance 0.6 % drops 1 drp ophthalmic (eye) BEDTIME Discharge Orders: Discharge Order (Routine); Ordered 06/03/23 Ordered By: Esha Carlos Diet: Regular diet Activity on Discharge: Use cane or walker Activity Restrictions/Additional Instructions: Physical Therapy for Total knee arthroplasty: WBAT, gait training, ROM 0-12, quad strength * Limit stair climbing * No showering, no tub bath-keep dressing clean, dry and intact * No driving x6 weeks * Continue Aspirin twice a day x 6 weeks * Follow up with [facility] [place] [facility] weeks:
--- NOTE | 2023-06-03 10:14 | MHC.CM.PN ---
PLAN IS 1230 AMBULANCE TRANSPORT TO [facility] RN AND UNIT AWARE PATIENT AND DAUGHTER (IN ROOM) AWARE.
[2023-06-03 12:00] VITALS: BP 135/63; PULSE 69; RESP 16; TEMP 36.2; O2SAT 94
--- NOTE | 2023-06-03 12:26 | MHC.CM.PN ---
CALL RECEIVED FROM CONCRETE POLISHERLISA AT [facility] TWO OF THEIR PATIENTS TESTED POSITIVE FOR COVID. PATIENT AND DAUGHTER ARE AWARE AND STILL CHOOSE TO DC TO FACILITY, ROOMS ARE ALL PRIVATE AND NO COVID WAS DETECTED IN PATIENT'S ROOM
--- NOTE | 2023-06-03 16:09 | W.PM.OPN ---
Operative Note Operative Note Date of Service: 05/31/23 Narrative: Date of Service: 05/31/23 Pre-op diagnosis: Right knee OA Post-op diagnosis: same Procedure: Right TKA Implants: Strtyker Triathlon posterior stabilized cemented 12/03/18 Surgeon: Braxton Lopez MD Anesthesia: regional and spinal Was an Customer Service Technician used for this Procedure?: Yes Customer Service Technician: Esha Carlos Estimated blood loss (mL): 25 Tourniquet time (min): 59 IV fluids (mL): 800 Pathology: other Condition: stable Disposition: PACU Procedure in detail: The patient was brought to the operating room and prepped and draped in standard sterile fashion. A time-out was called to identify proper site proper procedure proper surgeon and IV antibiotics were administered. 1 g of IV tranexamic acid was administered. I began by making a midline incision to the retinaculum and performed a medial parapatellar arthrotomy. The patella was translated laterally and the knee was flexed up. She had a moderate valgus deformity and the lateral and medial compartment were eburnated. I performed a small medial peel and resected the infrapatellar fat pad. Dee's line was then used to drill my intramedullary femoral guide and my distal femur cut of 10 mm was made in 5 degrees of valgus while protecting the soft tissues. I then measured a #2 femur and placed my cutting guide and made my anterior posterior and chamfer cuts protecting the soft tissues at all times. I then made my box but removing the PCL. Once I was satisfied with my cuts I turned my attention to the tibia. I removed the meniscus medially and laterally and , using an external cutting guide, in line with the tibial crest and the third ray, I made my distal tibial cut in 0 deg slope of while protecting the posterior soft tissues at all times. An extension block was used to confirm appropriate amount of bony resection. I then sized a #3 tibia and once I was satisfied that there was complete tibial coverage I placed my trial and with the trial femur in place took the knee through range of motion. I was satisfied with the extension and flexion as well as the stability at 0, 30 and 90 degrees. I then turned my attention to the patella where I removed 1 cm from the undersurface of the patella and then trialed a 29a patellar button. Again the knee was taken through range of motion I was satisfied with the tracking. I then returned to the femur and a femoral bone plug was placed and the knee was irrigated copiously. I then cemented the patella, tibia and femur in standard fashion while applying axial compression. Once the cement was dry and all the excess cement was removed I trialed different inserts until I selected a #19 insert. The final insert was placed and a 3 minutes iodine soak with local TXA was performed. The knee was then closed with a running Quill suture, a 3 0 Vicryl and jj on the skin. Patient was then placed in sterile dressing and brought to recovery room in stable condition there were no known complications.
== END 2023-06-03 12:30 | disposition skilled nursing facility (03) ==
LOC: HO.SSS 10:51 → HO.S3 12:50
PROVIDERS: Physician Assistant; PCP Internal Medicine; Visit Provider Orthopaedic Surgery
PROC: (CPT 27447; principal; 2023-05-31 11:50)
DX: M17.11 Unilateral primary osteoarthritis, right knee (principal); M81.0 Age-related osteoporosis without current pathological fracture; F41.1 Generalized anxiety disorder; I10 Essential (primary) hypertension; I73.9 Peripheral vascular disease, unspecified; E53.8 Deficiency of other specified B group vitamins; E66.3 Overweight; Z68.30 Body mass index [BMI] 30.0-30.9, adult; Z66 Do not resuscitate; Z96.652 Presence of left artificial knee joint; Z87.891 Personal history of nicotine dependence
CPT/HCPCS: 27447; 36415; 73560; 80048; 85014; 85018; 85025; 86850; 86900; 86901; 87640; 87641; 88305; 88311; 93005; 97110; 97116; 97162; 97530; C1713; C1776; J0131; J0461; J0690; J1100; J2370; J2371; J2405; J2795

== ENCOUNTER → 2023-05-31 10:51 | Outpatient (BNV) | payer MEDICARE, OTHER, SELFPAY | PROVIDERS: PCP Internal Medicine; Visit Provider Orthopaedic Surgery | DX: Z47.1 Aftercare following joint replacement surgery (principal); Z96.651 Presence of right artificial knee joint | CPT/HCPCS: 27447; 99024; 99231 ==

== ENCOUNTER → 2023-05-31 10:51 | Outpatient (BNV) | payer MEDICARE, OTHER, SELFPAY | PROVIDERS: PCP Internal Medicine; Visit Provider Physician Assistant | DX: M17.11 Unilateral primary osteoarthritis, right knee (principal) | CPT/HCPCS: 99222 ==

== ENCOUNTER 2023-06-16 08:57 | Outpatient (RCR) | payer MEDICARE, OTHER, SELFPAY | END 2023-08-26 11:15 | disposition home or self-care (01) | LOC: HO.PT 08:57 | PROVIDERS: PCP Internal Medicine; Visit Provider Physician Assistant | DX: Z96.651 Presence of right artificial knee joint (principal) ==

== ENCOUNTER 2023-06-16 13:05 | Outpatient (AMB) | payer MEDICARE, OTHER, SELFPAY ==
--- NOTE | 2023-06-16 13:11 | A.OFFVIS_ITS ---
Intake 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: PO-RT TKA 05/31/23 NE Intake Note: Katya is a 82 year old female who presents today for her post op visit for her right TKA, 05/31/23 NE. Patient reports some pulling sensation when she is sitting for a long time. Allergies amoxicillin Allergy (Intermediate, Verified 06/16/23 15:05) rectal bleeding lisinopril Allergy (Intermediate, Verified 06/16/23 15:05) cough HPI PO-RT TKA 05/31/23 NE HPI Details 82-year-old female who presents in the office today 2 weeks status post right total knee arthroplasty, which was performed on 05/31/[address] Lopez. The patient reports some pulling sensation when she is sitting for long periods of time. [facility] Medical History Anxiety B12 deficiency Cataract Cataract, left eye Cough Dizziness Hypercholesterolemia Hypertension Hypothyroid Impaired vision Neck pain Osteoarthritis of right knee Osteopenia Overweight (BMI 25.0-29.9) Peripheral vascular disease Tinnitus of both ears Surgical History History of colonoscopy History of hysterectomy History of left knee replacement History of lumpectomy of left breast History of right cataract surgery History of thyroidectomy Family History Father CAD (coronary artery disease) CVD (cardiovascular disease) Mother Hypertension Stroke Aneurysm Family/Other Hyperlipidemia Social History Household Members: None Housing: Apartment Are you a primary acute care clinical nurse specialist to a significant other at home: No Do you presently have visiting nurse or other home services: Yes Alcohol intake: never Patient Tobacco Use Status: Former Tobacco user Quit Date: 1987 Tobacco use type: Cigarette Years Smoked: 10 e-Cigarette/Vaping Use: Never Used Second Hand Smoke Exposure: No service: No Current occupational status: retired Cognitive needs: No Hearing needs: No Vision needs: Yes Review of Systems Const All systems reviewed & are unremarkable except as noted in HPI and below Physical Exam Const General: cooperative, healthy appearing and no acute distress Resp Effort & Inspection: normal respiratory effort and able to speak in complete sentences Cardio Rate: regular rate Peripheral pulses: Peripheral pulses 2+ throughout GI Palpation (GI): Soft to palpation Skin Lesions: no lesions Rashes: no rashes Extrem Other: Right knee: Normal to inspection. No ecchymosis, erythema, or edema. No signs of infection. Mimi intact. ROM is 10-90. NVI. Assessment & Plan Assessment & Plan (1) Osteoarthritis of right knee: Code(s): M17.11 - Unilateral primary osteoarthritis, right knee Qualifiers: Osteoarthritis type: primary Qualified Code(s): M17.11 - Unilateral primary osteoarthritis, right knee Plan Ms. Mireles is an 82-year-old female who presents in the office today 2 weeks status post right total knee arthroplasty, which was performed on 05/31/[address] Lopez. The patient reports some pulling sensation when she is sitting for long periods of time. Mimi were removed and steri-stripes were applied while in the office today. She will be referred to physical therapy. She will follow up with Dr. Lopez in 4 weeks, or sooner if needed. Orders: Orders PT Evaluation and Treatment Today Z96.651 - Presence of right artificial knee joint Medications: Discontinued atorvastatin 80 mg PO DAILY 90 days 90 tabs 3RF levothyroxine 112 mcg PO DAILY 90 tabs 2RF E03.9 - Hypothyroidism, unspecified amlodipine 2.5 mg PO DAILY 90 tabs 2RF I10 - Essential (primary) hypertension Patient Instructions: Scribed for Anette May PA-C by Anna Honeycutt medical translator, on 06/16/2023 at 1:09 pm, EST. Coding Level of Care Code Global (60887) Diagnoses Osteoarthritis of right knee M17.11 Osteoarthritis type: primary
== END 2023-06-16 14:00 | disposition home or self-care (01) ==
PROVIDERS: PCP Internal Medicine; Visit Provider Physician Assistant
DX: M17.11 Unilateral primary osteoarthritis, right knee (principal)
CPT/HCPCS: 99024

== ENCOUNTER → 2023-06-16 13:05 | Outpatient (BNVA) | payer MEDICARE, OTHER, SELFPAY | PROVIDERS: PCP Internal Medicine; Visit Provider Physician Assistant | DX: Z96.651 Presence of right artificial knee joint (principal) ==

== ENCOUNTER 2023-06-16 14:32 | Outpatient (AMB) | payer MEDICARE, OTHER, SELFPAY ==
--- NOTE | 2023-06-16 14:33 | MHC.PC.OV ---
Vital Signs 06/16/23 14:34 Height 4 ft 9.5 in Weight 159 lb 9.835 oz BMI 33.9 BP 146/68 H Blood Pressure Location Lt brachial Position Sitting Pulse 58 Pulse Source Pulse Oximeter Temp Source Skin Pulse Oximetry (%) 97 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: Rehab 06/11 Knee Replacement Intake Note: Patient is here for hospital discharge follow up. Patient was admitted to [facility] 06/03/23 for total right knee replacement - discharged on 06/11/23. Firing Pin Gauger Required: No Allergies amoxicillin Allergy (Intermediate, Verified 06/16/23 15:05) rectal bleeding lisinopril Allergy (Intermediate, Verified 06/16/23 15:05) cough Medication List - Last Reconciled 06/16/23 by SUZAN Collins acetaminophen 650 mg (2 x 325 mg) PO Q6H PRN 30 days amlodipine 2.5 mg PO DAILY aspirin 325 mg PO BID 42 days atorvastatin 80 mg PO BEDTIME celecoxib 200 mg PO BID 30 days cholecalciferol (vitamin D3) 25 mcg PO BEDTIME cyanocobalamin (vitamin B-12) 1,000 mcg PO QPM docusate sodium 100 mg PO BID 14 days fluticasone propionate 50 mcg/actuation 1 spray intranasal DAILY levothyroxine 112 mcg PO DAILY@0600 meclizine 25 mg PO TID PRN 7 days propylene glycol 0.6% (Systane Balance) 1 drp ophthalmic (eye) BEDTIME tizanidine 4 mg PO BID PRN Tobacco use date assessed: 06/16/23 Fall risk assessment: No Falls in past year Last assessed Fall Risk: 06/16/23 Dental Screening Dental Screen Date: 06/16/23 Did you have a dental visit in the last 12 months?: Yes Did you have a dental problem in the last 6 months where you did not have access to dental care?: No Was dental information given to patient?: Patient has dentist HPI Rehab 06/11 Knee Replacement HPI Details Patient is an 82-year-old female presents today to follow-up after right total knee replacement 05/31/[address] Lopez. Patient was admitted to [facility] rehab 06/03/2023 and discharged 06/11/2023, no discharge paperwork available, this was requested. Patient was seen by Orthopedics today and jj were removed and Steri-Strips were applied. She has an upcoming appointment with Orthopedics next month. Patient reports that she has home PT 2 times per week. Reports that pain is manageable and she takes p.r.n. Tylenol and Celebrex. Patient requested refill on Colace for constipation. No shortness of breath or chest pain. Ambulates with a walker. [facility] Medical History Anxiety B12 deficiency Cataract Cataract, left eye Cough Dizziness Hypercholesterolemia Hypertension Hypothyroid Impaired vision Neck pain Osteoarthritis of right knee Osteopenia Overweight (BMI 25.0-29.9) Peripheral vascular disease Tinnitus of both ears Surgical History History of colonoscopy History of hysterectomy History of left knee replacement History of lumpectomy of left breast History of right cataract surgery History of thyroidectomy Family History Father CAD (coronary artery disease) CVD (cardiovascular disease) Mother Hypertension Stroke Aneurysm Family/Other Hyperlipidemia Social History Household Members: None Housing: Apartment Are you a primary health care / medical job titles to a significant other at home: No Do you presently have visiting nurse or other home services: Yes Alcohol intake: never Patient Tobacco Use Status: Former Tobacco user Quit Date: 1987 Tobacco use type: Cigarette Years Smoked: 10 e-Cigarette/Vaping Use: Never Used Second Hand Smoke Exposure: No service: No Current occupational status: retired Cognitive needs: No Hearing needs: No Vision needs: Yes Questionnaire Thrive Questionnaire Date Thrive assessed: 06/01/23 AUDIT C Alcohol Use Questionnaire (AUDIT-C) 1. How often do you have a drink containing alcohol?: Never 2. How many drinks containing alcohol do you have on a typical day when you are drinking?: 1 or 2 3. How often do you have six or more drinks on one occasion?: Never Total Score: 0 Score Reviewed/Action Taken: No MISAEL-7 AMB Questionnaire MISAEL-7 Date MISAEL - 7 assessed: 01/10/23 Source: Developed by Drs. Darren Noel, Minnie Nevarez, Dago Mcmahan and colleagues, with an educational madelyn from [employer]. Review of Systems Const Denies body aches, Denies chills, Denies fever(s) and Denies headache(s) Eyes Denies change in vision ENT Denies dizziness, Denies otalgia, Denies headache(s), Denies nasal discharge, Denies sinus pain and Denies sore throat Card Denies chest pain, Denies edema, Denies lightheadedness and Denies dyspnea Resp Denies cough, Denies dyspnea and Denies wheezing GI Denies abdominal pain and Reports constipation (Intermittent) Denies dysuria Musc Denies myalgias and Reports arthralgias Skin/Breast Denies rash Neuro Denies dizziness and Denies headache(s) Aller/Immun Denies wheezing Physical exam (Primary Care) Vital Signs: Last Vital Signs Pulse 58 06/16/23 14:34 BP 146/68 H 06/16/23 14:34 Pulse Ox 97 06/16/23 14:34 BMI result Body Mass Index 33.9 Tobacco/Smoking Status: Tobacco use Status Tobacco use date assessed 06/16/23 06/16/23 14:41 Patient Tobacco Use Status Former Tobacco user 06/16/23 14:41 Tobacco use type Cigarette 06/16/23 14:41 e-Cigarette/Vaping Use Never Used 06/16/23 14:41 Thrive Assessment: Date of Thrive Assessment Date Thrive assessed 06/01/23 06/16/23 14:41 Const General: cooperative and no acute distress Orientation/consciousness: patient oriented x3 HENMT Head: Yes normocephalic and Yes atraumatic Face and sinus: Yes sinuses nontender Mouth: oropharynx normal and moist mucous membranes Throat: Yes posterior oropharynx normal Eyes General: appearance normal, both eyes and all related structures Neck Neck: Yes normal visual inspection, Yes full ROM and Yes no lymphadenopathy Resp Effort & Inspection: normal respiratory effort and able to speak in complete sentences Auscultation: clear to auscultation bilaterally, no crackles, no rales, no rhonchi and no wheezes Cardio Rate: regular rate Rhythm: regular rhythm Heart sounds: S1 normal heart sound present and S2 normal heart sound present GI Palpation (GI): Soft to palpation Auscultation: normal bowel sounds Skin General skin exam: no rashes or lesions noted Neuro General: patient oriented x3 Extrem Other: Right lower extremity with trace edema Right knee nontender, no erythema, mild pain with range of motion, Steri-Strips intact to anterior knee, no signs of infection noted General: Yes full ROM Assessment and Plan Assessment & Plan (1) Status post total knee replacement, right: Code(s): Z96.651 - Presence of right artificial knee joint Plan: Patient currently in home PT On aspirin b.i.d. for 6 weeks On Tylenol p.r.n. and Celebrex for pain Continue to follow-up with orthopedics as scheduled Signs and symptoms reviewed when to notify provider or go to the emergency department Patient agreed the plan Medications: Refilled docusate sodium 100 mg PO BID 14 days 28 caps 0RF Discontinued atorvastatin 80 mg PO DAILY 90 days 90 tabs 3RF levothyroxine 112 mcg PO DAILY 90 tabs 2RF E03.9 - Hypothyroidism, unspecified amlodipine 2.5 mg PO DAILY 90 tabs 2RF I10 - Essential (primary) hypertension Coding Level of Care Code Est Pt Level 3 (14867) Diagnoses Status post total knee replacement, right Z96.651
[2023-06-16 14:34] VITALS: BP 146/68; PULSE 58; O2SAT 97; BMI 33.9
== END 2023-06-16 15:18 | disposition home or self-care (01) ==
PROVIDERS: PCP Internal Medicine; Visit Provider Nurse Practitioner Family
DX: Z96.651 Presence of right artificial knee joint (principal)
CPT/HCPCS: 99213

== ENCOUNTER 2023-07-18 12:08 | Outpatient (AMB) | payer MEDICARE, OTHER, SELFPAY ==
--- NOTE | 2023-07-18 12:16 | A.OFFVIS_ITS ---
Intake 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: PO-RT TKA 05/31/23 NE Intake Note: The patient agreed to use of a medical office technologist during this encounter. Scribed for Dr. Braxton Lopez by Colleen Wagner, medical office technologist, on 07/18/2023. Katya is an 83 year old female who presents today for a post operative appo intment s/p Right TKA 05/31/23. She is doing well, she has some pain with exercises and gait initiation. She reports that she was doing better a few weeks ago, but over the last two weeks she has has increased pain. Allergies amoxicillin Allergy (Intermediate, Verified 06/16/23 15:05) rectal bleeding lisinopril Allergy (Intermediate, Verified 06/16/23 15:05) cough HPI PO-RT TKA 05/31/23 NE HPI Details Katya is an 83 year old female who presents today for a post operative appointment s/p Right TKA 05/31/23. She states she is doing well. States she is interested in starting to walk with a walker especially on side walk. [facility] Medical History Anxiety B12 deficiency Cataract Cataract, left eye Cough Dizziness Hypercholesterolemia Hypertension Hypothyroid Impaired vision Neck pain Osteoarthritis of right knee Osteopenia Overweight (BMI 25.0-29.9) Peripheral vascular disease Tinnitus of both ears Surgical History History of colonoscopy History of hysterectomy History of left knee replacement History of lumpectomy of left breast History of right cataract surgery History of thyroidectomy Family History Father CAD (coronary artery disease) CVD (cardiovascular disease) Mother Hypertension Stroke Aneurysm Family/Other Hyperlipidemia Social History Household Members: None Housing: Apartment Are you a primary eye care professional to a significant other at home: No Do you presently have visiting nurse or other home services: Yes Alcohol intake: never Patient Tobacco Use Status: Former Tobacco user Quit Date: 1987 Tobacco use type: Cigarette Years Smoked: 10 e-Cigarette/Vaping Use: Never Used Second Hand Smoke Exposure: No service: No Current occupational status: retired Cognitive needs: No Hearing needs: No Vision needs: Yes Physical Exam Extrem Other: inc c/d/i 0-120 deg motion Assessment & Plan Assessment & Plan (1) Status post total knee replacement, right: Code(s): Z96.651 - Presence of right artificial knee joint Plan: Doing well s/p right TKA Advised to walk RTO in 6 weeks. Coding Level of Care Code Global (05272) Diagnoses Status post total knee replacement, right Z96.651
== END 2023-07-18 12:45 | disposition home or self-care (01) ==
PROVIDERS: PCP Internal Medicine; Visit Provider Orthopaedic Surgery
DX: Z96.651 Presence of right artificial knee joint (principal)
CPT/HCPCS: 99024

== ENCOUNTER → 2023-07-18 12:08 | Outpatient (BNVA) | payer MEDICARE, OTHER, SELFPAY | PROVIDERS: PCP Internal Medicine; Visit Provider Orthopaedic Surgery ==

== ENCOUNTER 2023-09-01 12:13 | Outpatient (AMB) | payer MEDICARE, OTHER, SELFPAY ==
--- NOTE | 2023-09-01 12:17 | A.OFFVIS_ITS ---
Intake 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: OV-RT TKA 05/31/23 NE Intake Note: Katya is an 83 year old female who presents today for a 3 months follow up appointment s/p RT TKA 05/31/23. Patient reports that she is doing well , she had no concerns. She is not working with physical therapy. She is asking about an exercise bike. Allergies amoxicillin Allergy (Intermediate, Verified 06/16/23 15:05) rectal bleeding lisinopril Allergy (Intermediate, Verified 06/16/23 15:05) cough HPI OV-RT TKA 05/31/23 NE HPI Details Katya is an 83 year old woman who presents ~3 months S/P right TKA. She say she is doing well, without complaints, and is happy with the results of her surgery. She continues to work with PT and wants to use an exercise bike. [facility] Medical History Anxiety B12 deficiency Cataract Cataract, left eye Cough Dizziness Hypercholesterolemia Hypertension Hypothyroid Impaired vision Neck pain Osteoarthritis of right knee Osteopenia Overweight (BMI 25.0-29.9) Peripheral vascular disease Tinnitus of both ears Surgical History History of colonoscopy History of hysterectomy History of left knee replacement History of lumpectomy of left breast History of right cataract surgery History of thyroidectomy Family History Father CAD (coronary artery disease) CVD (cardiovascular disease) Mother Hypertension Stroke Aneurysm Family/Other Hyperlipidemia Social History Household Members: None Housing: Apartment Are you a primary pet care associate to a significant other at home: No Do you presently have visiting nurse or other home services: Yes Alcohol intake: never Patient Tobacco Use Status: Former Tobacco user Quit Date: 1987 Tobacco use type: Cigarette Years Smoked: 10 e-Cigarette/Vaping Use: Never Used Second Hand Smoke Exposure: No service: No Current occupational status: retired Cognitive needs: No Hearing needs: No Vision needs: Yes Review of Systems Const All systems reviewed & are unremarkable except as noted in HPI and below Physical Exam Const General: no acute distress, alert and awake Orientation/consciousness: patient oriented x3 HEENT Head: Yes normocephalic and Yes atraumatic Eyes EOM: EOMs intact bilaterally Resp Effort & Inspection: normal respiratory effort and able to speak in complete sentences Cardio Jugular venous distension: no JVD Skin General skin exam: turgor normal Rashes: no rashes Neuro General: patient oriented x3 Extrem Other: Right Knee: Well-healed incision Full ROM Psych Appearance: grossly normal Affect: normal affect Attitude: cooperative Results Reviewed Results Reviewed: I personally reviewed relevant radiographs. Right total knee arthroplasty in expected post operative position with no hardware complications or evidence of loosening Assessment & Plan Assessment & Plan (1) Status post total knee replacement, right: Code(s): Z96.651 - Presence of right artificial knee joint Plan: This is an 83 year old woman S/P right TKA, DOS: 06/04/23. She is doing well, without complaint, and is happy with the results of her surgery, I recommend she continue with PT and activities as tolerated. Discussed dental prophylaxes. Follow up in 1 year. Plan Scribed for Braxton Lopez MD by Rick Vivar director medical safety, on 09/01/23 at 12:30 PM, EST. Coding Level of Care Code Global (70397) Diagnoses Status post total knee replacement, right Z96.651
== END 2023-09-01 13:25 | disposition home or self-care (01) ==
PROVIDERS: PCP Internal Medicine; Visit Provider Orthopaedic Surgery
DX: Z47.1 Aftercare following joint replacement surgery (principal); Z96.651 Presence of right artificial knee joint
CPT/HCPCS: 99024

== ENCOUNTER → 2023-09-01 12:13 | Outpatient (BNVA) | payer MEDICARE, OTHER, SELFPAY | PROVIDERS: PCP Internal Medicine; Visit Provider Orthopaedic Surgery ==

== ENCOUNTER 2023-09-10 08:33 | Outpatient (REF) | payer MEDICARE, OTHER, SELFPAY ==
[2023-09-10 08:46] LABS: MANUAL DIFF FLAG NO
[2023-09-10 09:26] LABS: Basophils Absolute Auto 0.1 X10*3/uL (0.0-0.2); Basophils Percent Auto 0.7 % (0-2); Eosinophils Absolute Auto 0.2 X10*3/uL (0.0-0.4); Eosinophils Percent Auto 2.4 % (0-4); Hematocrit 38.6 % (37.0-47.0); Hemoglobin 12.6 g/dl (12.0-16.0); Imm Gran Abs Auto 0.03 X10*3/uL (0.00-0.03); Imm Gran Pct Auto 0.4 % (0.0-0.4); Lymphocytes Percent Auto 23.6 % (20-40); Mean Corpuscular HGB Conc 32.6 g/dl (31.0-35.0); Mean Corpuscular Hemoglobin 31.7 pg (27.0-33.0); Mean Platelet Volume 10.1 fL (9.4-12.3); Monocytes Absolute Auto 0.5 X10*3/uL (0.1-1.2); Monocytes Percent Auto 5.5 % (2-11); Neutrophils Absolute Auto 5.6 x10*3/uL (2.0-8.3); Neutrophils Percent Auto 67.4 % (45-73); Platelet Count 272 X10*3/uL (160-400); Red Blood Count 3.98 X10*6/uL (4.20-5.50); White Blood Count 8.3 X10*3/uL (4.8-10.8)
[2023-09-10 09:52] LABS: Alanine Aminotransferase 15 U/L (0-31); Albumin Level 4.7 g/dL (3.5-5.0); Alkaline Phosphatase 97 U/L (39-117); Anion Gap 14 (12-20); Aspartate Amino Transferase 34 U/L (5-31); Bilirubin Total 0.6 mg/dL (0.0-1.0); Blood Urea Nitrogen 12 mg/dL (9-16); Calcium 10.1 mg/dL (8.4-10.2); Carbon Dioxide 29 mmol/L (22-29); Chloride 99 mmol/L (96-108); Cholesterol 199 mg/dL (<200); Estimated Glomerular Filt Rate > 60; Glucose Random 115 mg/dL (60-115); HDL Cholesterol 66 mg/dL (>40); LDL Cholesterol Calculated 112 mg/dL (<100); Potassium 4.2 mmol/L (3.3-5.1); Sodium 138 mmol/L (135-145); Total Protein 8.4 g/dL (6.5-8.0); Triglycerides 105 mg/dL (<150)
[2023-09-10 10:10] LABS: Free T4 (Free Thyroxine) 1.05 ng/dL (0.71-1.85); Thyroid Stimulating Hormone 1.32 uIU/mL (0.32-4.0); Vitamin D 25-OH Total 67.2 ng/mL (>30)
[2023-09-10 10:20] LABS: Folate 11.2 ng/mL (> or = 4.0); Vitamin B12 1235 pg/mL (200-900)
== END 2023-09-10 08:34 | disposition home or self-care (01) ==
LOC: HO.LAB 08:33
PROVIDERS: PCP Internal Medicine; Visit Provider Internal Medicine
DX: E78.00 Pure hypercholesterolemia, unspecified (principal); M81.0 Age-related osteoporosis without current pathological fracture
CPT/HCPCS: 36415; 80053; 80061; 82306; 82607; 82746; 84439; 84443; 85025

== ENCOUNTER 2023-09-20 13:31 | Outpatient (AMB) | payer MEDICARE, OTHER, SELFPAY ==
--- NOTE | 2023-09-20 13:32 | A.OFFPC_ITS ---
Vital Signs 09/20/23 13:33 Height 5 ft 1 in Weight 158 lb BMI 29.9 BP 188/82 H Blood Pressure Location Lt brachial Position Sitting Pulse 79 Pulse Source Pulse Oximeter Pulse Oximetry (%) 94 Oxygen Delivery Method Room Air 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: 6 month f/u Allergies amoxicillin Allergy (Intermediate, Verified 09/20/23 13:33) rectal bleeding lisinopril Allergy (Intermediate, Verified 09/20/23 13:33) cough Tobacco use date assessed: 06/16/23 Fall risk assessment: No Falls in past year Last assessed Fall Risk: 09/20/23 Dental Screening Dental Screen Date: 09/20/23 Did you have a dental visit in the last 12 months?: No Did you have a dental problem in the last 6 months where you did not have access to dental care?: No Was dental information given to patient?: No HPI 6 month f/u HPI Details 83-year-old overweight female with hyper cholesterolemia hypothyroid hypertension last seen in February 2023. Review of the notes has seen the Orthopedics for follow-up for status post right knee replacement May 2023 BP high in the office but has a machine that we checked already that is good- good at home [facility] Medical History Anxiety B12 deficiency Cataract Cataract, left eye Cough Dizziness Hypercholesterolemia Hypertension Hypothyroid Impaired vision Neck pain Osteoarthritis of right knee Osteopenia Overweight (BMI 25.0-29.9) Peripheral vascular disease Tinnitus of both ears Surgical History History of colonoscopy History of hysterectomy History of left knee replacement History of lumpectomy of left breast History of right cataract surgery History of thyroidectomy Family History Father CAD (coronary artery disease) CVD (cardiovascular disease) Mother Hypertension Stroke Aneurysm Family/Other Hyperlipidemia Household Members: None Housing: Apartment Are you a primary daytime caregiver to a significant other at home: No Do you presently have visiting nurse or other home services: Yes Alcohol intake: never Patient Tobacco Use Status: Former Tobacco user Quit Date: 1987 Tobacco use type: Cigarette Years Smoked: 10 e-Cigarette/Vaping Use: Never Used Second Hand Smoke Exposure: No service: No Current occupational status: retired Cognitive needs: No Hearing needs: No Vision needs: Yes Questionnaire PHQ-9 Over the last 2 weeks, how often have you been bothered by any of the following problems? 1. Little interest or pleasure in doing things: not at all 2. Feeling down, depressed, or hopeless: not at all 3. Trouble falling or staying asleep, or sleeping too much: not at all 4. Feeling tired or having little energy: not at all 5. Poor appetite or overeating: not at all 6. Feeling bad about yourself - or that you are a failure or have let yourself or your family down: not at all 7. Trouble concentrating on things, such as reading the newspaper or watching te levision: not at all 8. Moving or speaking so slowly that other people could have noticed. Or the opposite - being so fidgety or restless that you have been moving around a lot more than usual: not at all 9. Thoughts that you would be better off or of hurting yourself in some way: not at all Total score: 0 Depression Screening Interpretation: Negative Depression Screening Done: Yes Source: Developed by Drs. Darren Noel, Minnie Nevarez, Dago Mcmahan and colleagues, with an educational madelyn from [employer]. Thrive Questionnaire Date Thrive assessed: 06/01/23 AUDIT C Alcohol Use Questionnaire (AUDIT-C) 1. How often do you have a drink containing alcohol?: Never 2. How many drinks containing alcohol do you have on a typical day when you are drinking?: 1 or 2 3. How often do you have six or more drinks on one occasion?: Never Total Score: 0 Score Reviewed/Action Taken: No MISAEL-7 AMB Questionnaire MISAEL-7 Date MISAEL - 7 assessed: 01/10/23 Source: Developed by Drs. Darren Noel, Minnie Nevarez, Dago Mcmahan and colleagues, with an educational madelyn from [employer]. Physical exam (Primary Care) Vital Signs: Last Vital Signs Pulse 79 09/20/23 13:33 BP 188/82 H 09/20/23 13:33 Pulse Ox 94 09/20/23 13:33 Oxygen Delivery Method Room Air 09/20/23 13:33 BMI result Body Mass Index 29.9 Tobacco/Smoking Status: Tobacco use Status Tobacco use date assessed 06/16/23 09/20/23 13:38 Patient Tobacco Use Status Former Tobacco user 09/20/23 13:38 Tobacco use type Cigarette 09/20/23 13:38 e-Cigarette/Vaping Use Never Used 09/20/23 13:38 PHQ-9: PHQ-9 Score PHQ-9: Total score 0 09/20/23 13:59 Depression Screening Interpretation: Negative Thrive Assessment: Date of Thrive Assessment Date Thrive assessed 06/01/23 09/20/23 13:38 Const General: alert; No acute distress Eyes Conjunctivae: conjunctivae normal Resp Auscultation: clear to auscultation bilaterally Cardio Rate: regular rate Rhythm: regular rhythm GI Inspection: Yes normal to inspection Extrem General: Yes normal to inspection and No edema Assessment and Plan Assessment & Plan (1) Overweight (BMI 25.0-29.9): Code(s): E66.3 - Overweight Plan: Diet and exercise (2) Hypertension: Code(s): I10 - Essential (primary) hypertension Qualifiers: Hypertension type: primary hypertension Qualified Code(s): I10 - Essential (primary) hypertension Plan: Continue with blood pressure medication. Decrease salt intake and exercise patient takes amlodipine 2.5 mg once a day patient takes blood pressure at home and they were normal (3) Hypothyroid: Code(s): E03.9 - Hypothyroidism, unspecified Qualifiers: Hypothyroidism type: acquired Qualified Code(s): E03.9 - Hypothyroidism, unspecified Plan: Continue with thyroid medication (4) Hypercholesterolemia: Code(s): E78.00 - Pure hypercholesterolemia, unspecified Plan: Avoid fried foods, chicken skin, eggs, butter margarine, pastries and meat. Be it pork or beef they have a lot of cholesterol LDL goal of less than 130 and triglyceride of less than 150 (5) Status post total knee replacement, right: Comment: May 2023 Code(s): Z96.651 - Presence of right artificial knee joint Plan: Keep active, doing good (6) Cough: Code(s): R05.9 - Cough, unspecified Plan: Chronic cough discussed about causes, allergy problem, blood pressure medication like lisinopril but patient is not taking this, PFT to do for asthma. Orders: Orders PFT pulmonary function test Today R05.9 - Cough, unspecified XR chest 2V Today R05.9 - Cough, unspecified Referrals Allergy & Immunology Referral R05.9 - Cough, unspecified Medications: New fexofenadine (Flavia Allergy) 180 mg PO DAILY 30 tabs 0RF R05.9 - Cough, unspecified Coding Level of Care Code Est Pt Level 4 (89837) Diagnoses Overweight (BMI 25.0-29.9) E66.3 Primary hypertension I10 Hypertension type: primary hypertension Acquired hypothyroidism E03.9 Hypothyroidism type: acquired Hypercholesterolemia E78.00 Status post total knee replacement, right Z96.651 Cough R05.9 Additional Codes PHQ-9 - 37950 - PHQ-9 Billing: ([id number])
[2023-09-20 13:33] VITALS: BP 188/82; PULSE 79; O2SAT 94; BMI 29.9
== END 2023-09-20 14:15 | disposition home or self-care (01) ==
PROVIDERS: Visit Provider Internal Medicine
DX: I10 Essential (primary) hypertension (principal); E66.3 Overweight; E03.9 Hypothyroidism, unspecified; E78.00 Pure hypercholesterolemia, unspecified; Z96.651 Presence of right artificial knee joint; R05.9 Cough, unspecified
CPT/HCPCS: 99214

== ENCOUNTER 2023-09-20 14:22 | Outpatient (REF) | payer MEDICARE, OTHER, SELFPAY ==
--- NOTE | ~2023-09-20 | XR_ITS ---
EXAMINATION: XR CHEST CLINICAL INFORMATION: Cough COMPARISON: 09/10/2022 TECHNIQUE: 3 views of the chest were obtained. FINDINGS: The lungs are well inflated. There is no gross pneumothorax. Rightward curvature of the thoracolumbar spine with multilevel degenerative changes. No gross pleural effusion. Cardiac silhouette is borderline enlarged. XR/XR chest 2V IMPRESSION: Cardiac silhouette is borderline enlarged. No evidence of pneumonia.
== END 2023-09-20 14:23 | disposition home or self-care (01) ==
LOC: HO.XRAY 14:22
PROVIDERS: PCP Internal Medicine; Visit Provider Internal Medicine
DX: R05.9 Cough, unspecified (principal)
CPT/HCPCS: 71046

== ENCOUNTER 2023-11-03 10:50 | Outpatient (REF) | payer MEDICARE, OTHER, SELFPAY ==
[2023-11-03 11:31] VITALS: PULSE 80; RESP 20; O2SAT 95
--- NOTE | 2023-11-03 11:35 | PFT_ITS ---
Flows: FEV1: ?124 % of predicted at 1.94 L FVC: ?104 % of predicted at 2.15 L FEV1/FVC: ?90 % Bronchodilator response: ?Absent Volumes: Total lung capacity: ?96 % of predicted at 4.04 L Residual volume: ?99 % of predicted at 1.87 L Slow vital capacity: ?96 % of predicted at 2.17 L Expiratory reserve volume: ?71 % of predicted at 0.38 L Diffusion capacity: ?Normal Impression: ?No obstructive or restrictive ventilatory defect.? No bronchodilator response.? Normal pulmonary function test. MTDD
== END 2023-11-03 10:51 | disposition home or self-care (01) ==
LOC: HO.RESP 10:50
PROVIDERS: PCP Internal Medicine; Visit Provider Internal Medicine
DX: R05.9 Cough, unspecified (principal)
CPT/HCPCS: 94640

== ENCOUNTER → 2023-11-03 11:35 | Outpatient (BNV) | payer MEDICARE, OTHER, SELFPAY | PROVIDERS: PCP Internal Medicine; Visit Provider Internal Medicine Pulmonary Disease | DX: R05.9 Cough, unspecified (principal) | CPT/HCPCS: 94060; 94727; 94729 ==

== ENCOUNTER 2023-12-27 14:13 | Outpatient (AMB) | payer MEDICARE, OTHER, SELFPAY ==
[2023-12-27 14:21] VITALS: BP 156/64; PULSE 78; O2SAT 99; BMI 30.6
--- NOTE | 2023-12-27 14:21 | MHC.PC.OV ---
Vital Signs 12/27/23 14:21 Height 5 ft 1 in Weight 162 lb BMI 30.6 BP 156/64 H Blood Pressure Location Lt brachial Position Sitting Pulse 78 Pulse Source Pulse Oximeter Pulse Oximetry (%) 99 Oxygen Delivery Method Room Air 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: 3 month f/u Intake Note: Patient is here to follow up on 3 months Coper Hand Required: No Allergies amoxicillin Allergy (Intermediate, Verified 12/27/23 14:30) rectal bleeding lisinopril Allergy (Intermediate, Verified 12/27/23 14:30) cough Medication List - Last Reconciled 12/27/23 by Jessica Sharpe MD acetaminophen 650 mg (2 x 325 mg) PO Q6H PRN 30 days amlodipine 2.5 mg PO DAILY atorvastatin 80 mg PO BEDTIME cholecalciferol (vitamin D3) 25 mcg PO BEDTIME cyanocobalamin (vitamin B-12) 1,000 mcg PO QPM docusate sodium 100 mg PO BID 14 days fexofenadine (Flavia Allergy) 180 mg PO DAILY fluticasone propionate 50 mcg/actuation 1 spray intranasal DAILY levothyroxine 112 mcg PO DAILY@0600 meclizine 25 mg PO TID PRN 7 days propylene glycol 0.6% (Systane Balance) 1 drp ophthalmic (eye) BEDTIME tizanidine 4 mg PO BID PRN Tobacco use date assessed: 12/27/23 Fall risk assessment: No Falls in past year Last assessed Fall Risk: 12/27/23 HPI 3 month f/u HPI Details 83-year-old obese female with hypertension hypothyroid hypercholesterolemia coming in for follow-up last seen in August 2023. Recently having a pulmonary function test showing no obstructive or restrictive ventilatory defect chest x-rays done no evidence of pneumonia lungs are clear. BP good at home, [facility] Medical History Anxiety B12 deficiency Cataract Cataract, left eye Cough Dizziness Hypercholesterolemia Hypertension Hypothyroid Impaired vision Neck pain Osteoarthritis of right knee Osteopenia Overweight (BMI 25.0-29.9) Peripheral vascular disease Tinnitus of both ears Surgical History History of colonoscopy History of hysterectomy History of left knee replacement History of lumpectomy of left breast History of right cataract surgery History of thyroidectomy Family History Father CAD (coronary artery disease) CVD (cardiovascular disease) Mother Hypertension Stroke Aneurysm Family/Other Hyperlipidemia Social History Household Members: None Housing: Apartment Are you a primary day care worker to a significant other at home: No Do you presently have visiting nurse or other home services: Yes Alcohol intake: never Patient Tobacco Use Status: Former Tobacco user Quit Date: 1987 Tobacco use type: Cigarette Years Smoked: 10 e-Cigarette/Vaping Use: Never Used Second Hand Smoke Exposure: No service: No Current occupational status: retired Cognitive needs: No Hearing needs: No Vision needs: Yes Questionnaire Thrive Questionnaire Date Thrive assessed: 12/27/23 I am a: Patient What is your living situation today?: I have a steady place to live Within the past 12 months, did the food you bought not last and you didn't have the money to get more?: Never true Within the past 12 months, did you worry whether your food would run out before you got money to buy more?: Never true Do you have trouble paying for medicines?: No Do you have trouble getting transportation to medical appointments?: No Do you have trouble paying your heating and electricity bill?: No Do you have trouble taking care of your child, family member or friend?: No Do you have trouble with day-to-day activities such as bathing, preparing meals, shopping, managing finances, etc.?: No Are you currently unemployed and looking for a job?: No Are you interested in more education?: No Please select the resources that you would like help with: None THRIVE Score: 0 AUDIT C Alcohol Use Questionnaire (AUDIT-C) 1. How often do you have a drink containing alcohol?: Never 2. How many drinks containing alcohol do you have on a typical day when you are drinking?: 1 or 2 3. How often do you have six or more drinks on one occasion?: Never Total Score: 0 Score Reviewed/Action Taken: No MISAEL-7 AMB Questionnaire MISAEL-7 Date MISAEL - 7 assessed: 12/27/23 Feeling nervous, anxious, or on edge: 0 = Not at all Not being able to stop or control worryin = Not at all Worrying too much about different things: 0 = Not at all Trouble relaxin = Not at all Being so restless that it is hard to sit still: 0 = Not at all Becoming easily annoyed or irritable: 0 = Not at all Feeling afraid as if something awful might happen: 0 = Not at all Total MISAEL-7 score (0-4 normal; 5-9 mild; 10-14 moderate; 15-21 severe): 0 Source: Developed by Drs. Darren Noel, Minnie Nevarez, Dago Mcmahan and colleagues, with an educational madelyn from [employer]. Physical exam (Primary Care) Vital Signs: Last Vital Signs Pulse 78 12/27/23 14:21 BP 156/64 H 12/27/23 14:21 Pulse Ox 99 12/27/23 14:21 Oxygen Delivery Method Room Air 12/27/23 14:21 BMI result Body Mass Index 30.6 Tobacco/Smoking Status: Tobacco use Status Tobacco use date assessed 12/27/23 12/27/23 14:22 Patient Tobacco Use Status Former Tobacco user 12/27/23 14:22 Tobacco use type Cigarette 12/27/23 14:22 e-Cigarette/Vaping Use Never Used 12/27/23 14:22 Thrive Assessment: Date of Thrive Assessment Date Thrive assessed 12/27/23 12/27/23 14:22 Const General: alert; No acute distress Eyes Conjunctivae: conjunctivae normal Resp Auscultation: clear to auscultation bilaterally Cardio Rate: regular rate Rhythm: regular rhythm GI Inspection: Yes normal to inspection Extrem General: Yes normal to inspection and No edema Assessment and Plan Assessment & Plan (1) Hypertension: Code(s): I10 - Essential (primary) hypertension Qualifiers: Hypertension type: primary hypertension Qualified Code(s): I10 - Essential (primary) hypertension Plan: Continue with blood pressure medication. Decrease salt intake and exercise presently on amlodipine 2.5 mg once a day (2) Hypothyroid: Code(s): E03.9 - Hypothyroidism, unspecified Qualifiers: Hypothyroidism type: acquired Qualified Code(s): E03.9 - Hypothyroidism, unspecified Plan: Continue with thyroid medication (3) Hypercholesterolemia: Code(s): E78.00 - Pure hypercholesterolemia, unspecified Plan: Avoid fried foods, chicken skin, eggs, butter margarine, pastries and meat. Be it pork or beef they have a lot of cholesterol LDL goal of less than 130 and triglyceride of less than 150 patient on atorvastatin 80 mg once a day (4) Obesity (BMI 30.0-34.9): Code(s): E66.9 - Obesity, unspecified Plan: Diet and exercise (5) Osteoporosis: Comment: September 2021 Code(s): M81.0 - Age-related osteoporosis without current pathological fracture Plan: Reminded about the bone density Orders: Orders Comprehensive Met. Panel 3 Months I10 - Essential (primary) hypertension Thyroid Stimulating Hormone 3 Months I10 - Essential (primary) hypertension Vitamin B12 and Folate 3 Months I10 - Essential (primary) hypertension Complete Blood Count Auto Diff 3 Months I10 - Essential (primary) hypertension Lipid Panel 3 Months E78.00 - Pure hypercholesterolemia, unspecified, I10 - Essential (primary) hypertension Free T4 (Free Thyroxine) 3 Months I10 - Essential (primary) hypertension XR DEXA axial skeleton Today M81.0 - Age-related osteoporosis without current pathological fracture Medications: Refilled fexofenadine (Flavia Allergy) 180 mg PO DAILY 180 tabs 2RF R05.9 - Cough, unspecified Coding Level of Care Code Est Pt Level 4 (86684) Diagnoses Primary hypertension I10 Hypertension type: primary hypertension Acquired hypothyroidism E03.9 Hypothyroidism type: acquired Hypercholesterolemia E78.00 Obesity (BMI 30.0-34.9) E66.9 Osteoporosis M81.0
== END 2023-12-27 15:18 | disposition home or self-care (01) ==
PROVIDERS: PCP Internal Medicine; Visit Provider Internal Medicine
DX: I10 Essential (primary) hypertension (principal); E66.9 Obesity, unspecified; Z68.30 Body mass index [BMI] 30.0-30.9, adult; E03.9 Hypothyroidism, unspecified; E78.00 Pure hypercholesterolemia, unspecified; M81.0 Age-related osteoporosis without current pathological fracture
CPT/HCPCS: 99214

== ENCOUNTER 2024-01-13 10:51 | Outpatient (REF) | payer MEDICARE, OTHER, SELFPAY ==
--- NOTE | ~2024-01-13 | MM_ITS ---
EXAMINATION: BONE DENSITOMETRY CLINICAL INDICATION: Age-related osteoporosis without current pathological fracture. COMPARISON: Previous BD dated 10/01/2021 and baseline BD dated 03/09/2016. TECHNIQUE: Using a Collision Hub DXA System (software version: 13.1) manufactured by [employer], dual-energy x-ray absorptiometry was performed of the lumbar spine and left hip. The images are of good technical quality. Summary results are attached. FINDINGS: LEFT FEMUR, NECK: Current: BMD 0.592 g/cm2, Z-score -0.9, T-score -3.2, osteoporosis. Prior: BMD 0.647 g/cm2. Baseline: BMD 0.739 g/cm2. LEFT FEMUR, TOTAL: Current: BMD 0.586 g/cm2, Z-score -1.2, T-score -3.3, osteoporosis, 12.8% decrease from previous, 22.6% decrease from baseline (<5% change is not significant). Prior: BMD 0.672 g/cm2. Baseline: BMD 0.757 g/cm2. AP SPINE L1-L4: Current: BMD 0.920 g/cm2, Z-score -0.4, T-score -2.2, osteopenia, 3.5% decrease from previous, 5.7% decrease from baseline (<5% change is not significant). Prior: BMD 0.953 g/cm2. Baseline: BMD 0.976 g/cm2. IDENTIFIED RISK FACTORS: Early menopause, height loss, osteoporosis, secondary osteoporosis (hyperthyroidism). HISTORY OF FRACTURE: None listed. MEDICATIONS: Vitamin D. MM/XR DEXA axial skeleton IMPRESSION: 1. DIAGNOSIS: Osteoporosis based on the lowest T-score value of -3.3 in the total femur applying World Health Organization criteria. 2. 10-YEAR FRACTURE RISK PREDICTION, FRAX: According to the guidelines, FRAX calculation should only be performed on patients in the osteopenia bone density category. Therefore, FRAX was not performed on this patient. 3. Treatment Recommendations: NOF guidelines recommend consideration for treatment in postmenopausal women and men age 50 and older presenting with the following: -A hip or vertebral (clinical or morphometric) fracture. -T-score less than or equal to -2.5 at the femoral neck or spine after appropriate evaluation to exclude secondary causes. -Low bone mass at the hip or spine and a 10-year fracture probability by FRAX of greater than or equal to 3% for hip fracture or greater than or equal to 20% for major osteoporotic fracture based on the [place] adapted WHO algorithm. 4. Other Recommendations: All treatment decisions require clinical judgment and consideration of individual patient factors, including patient preferences, comorbidities, previous drug use, risk factors not captured in the FRAX model (e.g. frailty, falls, vitamin D deficiency, increased bone turnover, interval significant decline in bone density) and possible under or overestimation of fracture risk by FRAX. Additional medical evaluation for secondary cause of low bone mineral density may be appropriate. FUTURE SCAN RECOMMENDATION: People with diagnosed cases of osteoporosis or at high risk for fracture should have regular bone mineral density tests. For patients eligible for Medicare, routine testing is allowed once every 2 years. The testing frequency can be increased to one year for patients who have rapidly progressing disease, those who are receiving or discontinuing medical therapy to restore bone mass, or have additional risk factors.
== END 2024-01-13 10:52 | disposition home or self-care (01) ==
LOC: HO.MAMMO 10:51
PROVIDERS: PCP Internal Medicine; Visit Provider Internal Medicine
DX: Z13.820 Encounter for screening for osteoporosis (principal); Z78.0 Asymptomatic menopausal state; M81.0 Age-related osteoporosis without current pathological fracture
CPT/HCPCS: 77080

== ENCOUNTER 2024-03-13 16:17 | Outpatient (AMB) | payer MEDICARE, OTHER, SELFPAY ==
--- NOTE | 2024-03-13 16:18 | A.OFFPC_ITS ---
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 Clinical Research Required: No Allergies amoxicillin Allergy (Intermediate, Verified 03/13/24 16:18) rectal bleeding lisinopril Allergy (Intermediate, Verified 03/13/24 16:18) cough Medication List - Last Reconciled 03/13/24 by Jessica Sharpe MD acetaminophen 650 mg (2 x 325 mg) PO Q6H PRN 30 days amlodipine 2.5 mg PO DAILY atorvastatin 80 mg PO BEDTIME celecoxib (Celebrex) 200 mg PO BID PRN cholecalciferol (vitamin D3) 25 mcg PO BEDTIME cyanocobalamin (vitamin B-12) 1,000 mcg PO QPM docusate sodium 100 mg PO BID 14 days fexofenadine (Flavia Allergy) 180 mg PO DAILY fluticasone propionate 50 mcg/actuation 1 spray intranasal DAILY levothyroxine 112 mcg PO DAILY@0600 meclizine 25 mg PO TID PRN 7 days propylene glycol 0.6% (Systane Balance) 1 drp ophthalmic (eye) BEDTIME tizanidine 4 mg PO BID PRN Tobacco use date assessed: 03/13/24 Fall risk assessment: No Falls in past year Last assessed Fall Risk: 03/13/24 Dental Screening Dental Screen Date: 09/20/23 HPI Arthritis Pain HPI Details 83-year-old obese female with hypertensi on hypothyroidism hypercholesterolemia and osteoporosis last seen in December 2023. Patient's bone density was last done in December 2023. Bone density did show osteoporosis and with the spine 3.5% decrease left femur 12% decrease. Patient called in for an acute problem. in the middle of night pain L arm on walking - saw Chiropractor- no broken and states swelling muscle but with manipulation - better. R arm pain celebrex bilateral hand/fingers burning sensation. Patient was asking for refill on the allergy medication also. Patient is asking for Celebrex in which her family member has taken and like. [facility] Medical History Anxiety B12 deficiency Cataract Cataract, left eye Cough Dizziness Hypercholesterolemia Hypertension Hypothyroid Impaired vision Neck pain Osteoarthritis of right knee Osteopenia Overweight (BMI 25.0-29.9) Peripheral vascular disease Tinnitus of both ears Surgical History History of colonoscopy History of hysterectomy History of left knee replacement History of lumpectomy of left breast History of right cataract surgery History of thyroidectomy Family History Father CAD (coronary artery disease) CVD (cardiovascular disease) Mother Hypertension Stroke Aneurysm Family/Other Hyperlipidemia Social History Household Members: None Housing: Apartment Are you a primary post acute care nurse practitioner to a significant other at home: No Do you presently have visiting nurse or other home services: Yes Alcohol intake: never Patient Tobacco Use Status: Former Tobacco user Quit Date: 1987 Tobacco use type: Cigarette Years Smoked: 10 e-Cigarette/Vaping Use: Never Used Second Hand Smoke Exposure: No service: No Current occupational status: retired Cognitive needs: No Hearing needs: No Vision needs: Yes Questionnaire Thrive Questionnaire Date Thrive assessed: 12/27/23 AUDIT C Alcohol Use Questionnaire (AUDIT-C) 1. How often do you have a drink containing alcohol?: Never 2. How many drinks containing alcohol do you have on a typical day when you are drinking?: 1 or 2 3. How often do you have six or more drinks on one occasion?: Never Total Score: 0 Score Reviewed/Action Taken: No MISAEL-7 AMB Questionnaire MISAEL-7 Date MISAEL - 7 assessed: 12/27/23 Source: Developed by Drs. Darren Noel, Minnie Nevarez, Dago Mcmahan and colleagues, with an educational madelyn from [employer]. Physical exam (Primary Care) Tobacco/Smoking Status: Tobacco use Status Tobacco use date assessed 03/13/24 03/13/24 16:19 Patient Tobacco Use Status Former Tobacco user 03/13/24 16:19 Tobacco use type Cigarette 03/13/24 16:19 e-Cigarette/Vaping Use Never Used 03/13/24 16:19 Thrive Assessment: Date of Thrive Assessment Date Thrive assessed 12/27/23 03/13/24 16:19 Telehealth Telehealth Telehealth Platform: Telephone Location of provider rendering services: practice address Location of patient: address on file Patient Identification confirmed using: Name, : Yes Telehealth method: voice only Patient verbally consented to treatment: Yes Patient verbally consented to billing insurance company: Yes Patient informed of any privacy concerns related to visit: Yes Minutes spent on Phone/Video with Pt.: 15 Assessment and Plan Assessment & Plan (1) Osteoporosis: Comment: September 2021, December 2023 Code(s): M81.0 - Age-related osteoporosis without current pathological fracture Plan: Discussed about calcium and vitamin-D for the bones and discussed also about other options for the bone health declined any new medication. (2) Osteoarthritis, hand: Code(s): M19.049 - Primary osteoarthritis, unspecified hand Plan: Keep active and will send in Celebrex to help with the pain and to take as needed. Discussed about side effects (3) Shoulder pain, bilateral: Code(s): M25.511 - Pain in right shoulder; M25.512 - Pain in left shoulder Plan: Keep active and Celebrex prescription sent in. (4) Allergic rhinitis: Code(s): J30.9 - Allergic rhinitis, unspecified Plan: Flavia 180 mg once a day sent in (5) Bilateral hand numbness: Code(s): R20.0 - Anesthesia of skin Plan: Discussed about the problem with hand numbness that most often it is nerve problem. EMG and nerve conduction test requested. Orders: Orders NE electromyogram (EMG) Today R20.0 - Anesthesia of skin NE nerve conduction velocity Today R20.0 - Anesthesia of skin Magnesium Today Z96.651 - Presence of right artificial knee joint Medications: New celecoxib (Celebrex) 200 mg PO BID PRN 30 caps 0RF pain M19.049 - Primary osteoarthritis, unspecified hand Refilled fexofenadine (Flavia Allergy) 180 mg PO DAILY 90 tabs 2RF J30.9 - Allergic rhinitis, unspecified Coding Level of Care Code Tele Est Pt Level 4 (20224) Diagnoses Osteoporosis M81.0 Osteoarthritis, hand M19.049 Shoulder pain, bilateral M25.511; M25.512 Allergic rhinitis J30.9 Bilateral hand numbness R20.0
== END 2024-03-13 17:57 | disposition home or self-care (01) ==
LOC: HO.HMGH 16:17
PROVIDERS: PCP Internal Medicine; Visit Provider Internal Medicine
DX: M81.0 Age-related osteoporosis without current pathological fracture (principal); M19.049 Primary osteoarthritis, unspecified hand; M25.511 Pain in right shoulder; M25.512 Pain in left shoulder; J30.9 Allergic rhinitis, unspecified; R20.0 Anesthesia of skin
CPT/HCPCS: 99442

== ENCOUNTER 2024-03-23 10:52 | Outpatient (REF) | payer MEDICARE, OTHER, SELFPAY ==
--- NOTE | 2024-03-23 10:55 | EMG_ITS ---
Chief complaint: Right hand numbness, milder on left Reason for referral: Evaluate for Carpal Tunnel Syndrome Referred by: Dr. Sharpe Procedure done: Bilateral upper extremities NCS/EMG Precautions and/or limitations: None The limb temperature was monitored continuously and remained between 32-36 degrees C during the performance of the NCS. Nerve Conduction Studies Anti Sensory Summary Table ?Stim Site NR Onset (ms) Norm Onset (ms) Peak (ms) Norm Peak (ms) O-P Amp (?V) Norm O-P Amp Site1 Site2 Delta-0 (ms) Dist (cm) Michael (m/s) Norm Michael (m/s) Left Median Anti Sensory (2nd Digit) Wrist ? 2.5 3.5 <3.6 35.8 >10 Wrist 2nd Digit 2.5 14.0 56 Right Median Anti Sensory (2nd Digit) Wrist ? 3.7 4.8 <3.6 14.5 >10 Wrist 2nd Digit 3.7 14.0 38 Right Radial Anti Sensory (Thumb) Forearm ? 1.5 2.2 <3.1 21.8 Forearm Thumb 1.5 0.0 Left Ulnar Anti Sensory (5th Digit) Wrist ? 2.3 3.3 <3.7 34.2 >15.0 Wrist 5th Digit 2.3 14.0 61 Right Ulnar Anti Sensory (5th Digit) Wrist ? 2.4 3.2 <3.7 24.2 >15.0 Wrist 5th Digit 2.4 14.0 58 Motor Summary Table ?Stim Site NR Onset (ms) Norm Onset (ms) O-P Amp (mV) Norm O-P Amp iAmp (mV) Amp (1st) (%) Site1 Site2 Delta-0 (ms) Dist (cm) Michael (m/s) Norm Michael (m/s) Left Median Motor (Abd Poll Brev) Wrist ? 3.9 <3.9 7.8 >4.5 9.9 100.0 Elbow Wrist 3.8 18.0 47 >45 Elbow ? 7.7 7.3 8.9 93.6 Right Median Motor (Abd Poll Brev) Wrist ? 5.2 <3.9 4.0 >4.5 5.3 100.0 Elbow Wrist 3.9 19.5 50 >45 Elbow ? 9.1 3.5 4.6 87.5 Left Ulnar Motor (Abd Dig Minimi) Wrist ? 2.7 <3.0 7.7 >5 8.6 100.0 B Elbow Wrist 2.9 17.0 59 >45 B Elbow ? 5.6 7.1 8.1 92.2 A Elbow B Elbow 1.7 10.0 59 >45 A Elbow ? 7.3 6.5 7.5 84.4 Right Ulnar Motor (Abd Dig Minimi) Wrist ? 2.7 <3.0 6.5 >5 7.6 100.0 B Elbow Wrist 2.9 17.0 59 >45 B Elbow ? 5.6 6.5 7.5 100.0 A Elbow B Elbow 1.7 10.0 59 >45 A Elbow ? 7.3 6.3 7.4 96.9 EMG ?Side Muscle Nerve Root Ins Act Fibs Psw Amp Dur Poly Recrt Int Pat Comment Right 1stDorInt Ulnar C8-T1 Nml Nml Nml Nml Nml 0 Nml Complete Right FlexCarRad Median C6-7 Nml Nml Nml Nml Nml 0 Nml Complete Right Biceps Musculocut C5-6 Nml Nml Nml Nml Nml 0 Nml Complete Right Triceps Radial C6-7-8 Nml Nml Nml Nml Nml 0 Nml Complete Right Deltoid Axillary C5-6 Nml Nml Nml Nml Nml 0 Nml Complete Left 1stDorInt Ulnar C8-T1 Nml Nml Nml Nml Nml 0 Nml Complete Left FlexCarRad Median C6-7 Nml Nml Nml Nml Nml 0 Nml Complete Left Biceps Musculocut C5-6 Nml Nml Nml Nml Nml 0 Nml Complete Left Triceps Radial C6-7-8 Nml Nml Nml Nml Nml 0 Nml Complete Left Deltoid Axillary C5-6 Nml Nml Nml Nml Nml 0 Nml Complete FINDINGS: Right median motor nerve showed prolonged distal latency, small amplitude and normal conduction velocity. Right median sensory nerve showed prolonged peak latency. All other nerves tested were within normal. Concentric needle EMG was performed in selected muscles of the bilateral upper extremities. Study did not reveal signs of electric abnormalities as shown in the table below. IMPRESSION: 1. This is an abnormal study. 2. There is electrodiagnostic evidence for right moderate-severe median neuropathy at the wrist, consistent with carpal tunnel syndrome. 3. There is no electrodiagnostic evidence for ulnar neuropathy, brachial plexopathy, or cervical radiculopathy. 4. There is no electrodiagnostic evidence for median neuropathy left. Thank you for your kind referral. Salome Mead MD, RIKI Board Certified, [place] Board of Physical Medicine and Rehabilitation (ABPMR) Board Certified, [place] Board of Electrodiagnostic Medicine (ABEM) CODIN 23731 x 2 MTDD
== END 2024-03-23 10:53 | disposition home or self-care (01) ==
LOC: HO.NEURO 10:52
PROVIDERS: PCP Internal Medicine; Visit Provider Internal Medicine
DX: R20.0 Anesthesia of skin (principal)
CPT/HCPCS: 95886; 95911

== ENCOUNTER → 2024-03-23 10:55 | Outpatient (BNV) | payer MEDICARE, OTHER, SELFPAY | PROVIDERS: PCP Internal Medicine; Visit Provider Physical Medicine & Rehabilitation | DX: G56.02 Carpal tunnel syndrome, left upper limb (principal); R20.2 Paresthesia of skin | CPT/HCPCS: 95886; 95911 ==

== ENCOUNTER 2024-04-25 12:29 | Outpatient (AMB) | payer MEDICARE, OTHER, SELFPAY ==
[2024-04-25 12:44] VITALS: BMI 30.6
--- NOTE | 2024-04-25 12:44 | MHC.OFFVIS ---
Vital Signs 04/25/24 12:44 Height 5 ft 1 in Weight 162 lb BMI 30.6 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: Newprob-Carpal tunnel syndrome, right upper limb Intake Note: Katya is a 83 year old right hand dominant female who presents today with a new problem for right hand Carpal tunnel syndrome. EMG done on 03/23/24. Patient reports that she is having pain, numbness and tingling of the right hand. She also complains of weakness of the right hand, and is frequently dropping things. She was seen with a chiropractor about a month ago, he adjusted her neck and hours later she had warmth, inflammation, numbness and pain of the right hand. She has been taking muscle relaxers occasionally in the morning as this is when her symptoms are increased. Within the last week or so her symptoms have improved slightly but prior to this she was bedridden She is taking Celebrex for her pain. Allergies amoxicillin Allergy (Intermediate, Verified 03/13/24 16:18) rectal bleeding lisinopril Allergy (Intermediate, Verified 03/13/24 16:18) cough HPI HPI Newprob-Carpal tunnel syndrome, right upper limb: Details: Katya is an 83 year old right hand dominant woman who presents for a NCS review of her right hand numbness. She complains of numbness & tingling in her thumb, index, and middle fingers of her right hand. Symptoms intermittent, but daily, worse at night. She also complains of pain in in her right hand, along with occasional swelling. 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 She reports seeing a Chiropractor ~1 month ago and after having her neck cracked she became bedridden with complaints of pain radiating down her arm, with worsening pain, swelling, and numbness in her right hand & wrist. She denies any prior treatment options. She finds some relief from Celebrex & muscle relaxers. [facility] Medical History (Updated 04/25/24 @ 13:35 by Rick Vivar) Bilateral hand numbness Impaired vision Osteoarthritis of right knee Tinnitus of both ears Dizziness B12 deficiency Neck pain Overweight (BMI 25.0-29.9) Cataract, left eye Cataract Cough Hypercholesterolemia Anxiety Peripheral vascular disease Osteopenia Hypothyroid Hypertension Surgical History (Updated 09/20/23 @ 13:58 by Jessica Sharpe MD) History of right cataract surgery History of left knee replacement History of lumpectomy of left breast History of colonoscopy History of hysterectomy History of thyroidectomy Family History Father CAD (coronary artery disease) CVD (cardiovascular disease) Mother Hypertension Stroke Aneurysm Family/Other Hyperlipidemia Social History Household Members: None Housing: Apartment Are you a primary urgent care nurse practitioner to a significant other at home: No Do you presently have visiting nurse or other home services: Yes Alcohol intake: never Patient Tobacco Use Status: Former Tobacco user Tobacco use type: Cigarette Years Smoked: 10 e-Cigarette/Vaping Use: Never Used Second Hand Smoke Exposure: No service: No Current occupational status: retired Cognitive needs: No Hearing needs: No Vision needs: Yes Review of Systems Const All systems reviewed & are unremarkable except as noted in HPI and below Physical Exam Vital Signs: BMI result Body Mass Index 30.6 Const General: cooperative, healthy appearing and no acute distress Orientation/consciousness: patient oriented x3 HEENT Head: Yes normocephalic and Yes atraumatic Eyes EOM: EOMs intact bilaterally Resp Effort & Inspection: normal respiratory effort and able to speak in complete sentences Cardio Jugular venous distension: no JVD Skin General skin exam: turgor normal Rashes: no rashes Neuro General: patient oriented x3 Extrem Other: Evaluation of Right Upper Extremity: The patient is alert, oriented, and in no acute distress Neuro: Dense numbness in the middle & ring fingers, more normal sensation in the thumb & index fingers. normal sensation in the small finger. No thenar or intrinsic wasting Good APB muscle belly firing and good finger cross Vascular: Cap refill brisk ROM: Initially she could bring her fingertips to ~8cm from her palm We worked on exercises 15 minutes and before leaving clinic she could bring her ring & small fingers to ~1cm from her palm. We left her index & middle fingers able to oppose her thumb She does have significant arthritic changes in the PIP and IP joints No locking or catching Regarding her left hand, she was able to make a fist and extend all her digits Skin: No lacerations or abrasions. General: No Ecchymosis. No Erythema or evidence of infection. Nerve Conduction Study: IMPRESSION: 1. This is an abnormal study. 2. There is electrodiagnostic evidence for right moderate-severe median neuropathy at the wrist, consistent with carpal tunnel syndrome. 3. There is no electrodiagnostic evidence for ulnar neuropathy, brachial plexopathy, or cervical radiculopathy. 4. There is no electrodiagnostic evidence for median neuropathy left. Salome Mead MD, RIKI 03/23/24 Psych Appearance: grossly normal Affect: normal affect Attitude: cooperative Assessment & Plan Assessment & Plan (1) Right carpal tunnel syndrome: Comment: February 2024This is an abnormal study. 2. There is electrodiagnostic evidence for right moderate-severe median neuropathy at the wrist, consistent with carpal tunnel syndrome. 3. There is no electrodiagnostic evidence for ulnar neuropathy, brachial plexopathy, or cervical radiculopathy. 4. There is no electrodiagnostic evidence for median neuropathy left. Code(s): G56.01 - Carpal tunnel syndrome, right upper limb Category: Medical (2) Stiffness of right hand joint: Code(s): M25.641 - Stiffness of right hand, not elsewhere classified Category: Medical (3) Osteoarthritis of right hand: Code(s): M19.041 - Primary osteoarthritis, right hand Category: Medical (4) Numbness and tingling in left hand: Code(s): R20.0 - Anesthesia of skin; R20.2 - Paresthesia of skin Category: Medical Plan Assessment & Plan: 1. Right carpal tunnel syndrome, moderate-severe With dense numbness I educated her about this condition I discussed operative and non-operative treatment options The patient would like to proceed with surgery. I explained that this surgery is to treat her numbness and is not likely to improve her [ ]. She expressed understanding The risks and benefits of operative treatment were discussed with the patient and the patient wishes to proceed with surgery. These risks include, but are not limited to risk of damage to blood vessels, nerves, tendons, infection, recurrence, incomplete relief of preoperative symptoms, persistent pain, possible need for further surgery and the risks associated with regional blocks and anesthesia. The plan is to take the patient to the operating room sometime in the next few weeks for the following procedures: 1. Right carpal tunnel release, under local All of the preoperative paperwork including the consent was reviewed today. All the patient's questions were answered. The patient understands that they will be contacted by our round up ring hand soon to schedule this procedure She denies Diabetes, blood thinners, asthma, heart, lung, kidney issues 3. Right hand osteoarthritis with finger stiffness We worked on ROM exercises for more than 15 minutes today in clinic I ordered OT hand therapy to work on ROM & stretching exercises 3. Left hand numbness and tingling Negative EMG nerve conduction study We will manage this conservatively. Scribed for Tammy Tan MD by Rick Vivar, medical transcription editor, on 04/25/24 at 1:25 PM, EST. Orders: Orders OT Evaluation and Treatment Today G56.01 - Carpal tunnel syndrome, right upper limb, M25.641 - Stiffness of right hand, not elsewhere classified Coding Level of Care Code New Pt Level 4 (87034) Diagnoses Right carpal tunnel syndrome G56.01 Stiffness of right hand joint M25.641 Osteoarthritis of right hand M19.041 Numbness and tingling in left hand R20.0; R20.2
== END 2024-04-25 15:51 | disposition home or self-care (01) ==
PROVIDERS: PCP Internal Medicine; Visit Provider Orthopaedic Surgery
DX: G56.01 Carpal tunnel syndrome, right upper limb (principal); M25.641 Stiffness of right hand, not elsewhere classified; M19.041 Primary osteoarthritis, right hand; R20.0 Anesthesia of skin; R20.2 Paresthesia of skin
CPT/HCPCS: 99214

== ENCOUNTER → 2024-04-25 12:29 | Outpatient (BNVA) | payer MEDICARE, OTHER, SELFPAY | PROVIDERS: PCP Internal Medicine; Visit Provider Orthopaedic Surgery | DX: G56.01 Carpal tunnel syndrome, right upper limb (principal); M19.041 Primary osteoarthritis, right hand; R20.0 Anesthesia of skin; R20.2 Paresthesia of skin | CPT/HCPCS: 99212 ==

== ENCOUNTER 2024-05-02 21:57 | Emergency (ER) | payer MEDICARE, OTHER, SELFPAY ==
--- NOTE | ~2024-05-02 | CT_ITS ---
EXAM: Noncontrast CT scan of the head and cervical spine. INDICATION: Pain after fall COMPARISON: Head CT September 10, 2022 TECHNIQUE: Axial slices were obtained from skull base to vertex and displayed. This was followed by helical, multislice, multidetector axial images from the occiput to the upper thorax. Coronal and sagittal reformats of the cervical spine in addition to coronal reformats of the head were obtained at the technologist workstation. DLP: 881 mGy-cm FINDINGS: HEAD: There is no evidence of acute intracranial hemorrhage or territorial infarction. No abnormal mass effect or midline shift is appreciated. Rachel-white differentiation is well preserved. No extra-axial fluid collections. The ventricular system and cortical sulci are prominent, consistent with volume loss. There are areas of low density in the periventricular and subcortical white matter, most consistent with sequelae of microvascular ischemic change. The osseous structures and soft tissues are normal. There are calcifications of the cavernous internal carotid arteries. The visualized paranasal sinuses and mastoid air cells are well aerated. SPINE: There is straightening of the normal cervical lordosis. Also noted is minimal anterolisthesis of C3 on C4 with mild anterolisthesis of C4 on C5. Normal C1/2 articulation. Cervical vertebral body heights are maintained. There is moderate to severe narrowing of the C5/6 and C6/7 disc space height. Small osteophytes are scattered throughout the cervical spine. Mild diffuse facet hypertrophy bilaterally. Visualized lung apices are well aerated. CT/CT head/brain wo IV con IMPRESSION: 1. No acute intracranial pathology. 2. No fractures or dislocations of the cervical spine.
--- NOTE | ~2024-05-02 | XR_ITS ---
EXAMINATION: XR CHEST CLINICAL INFORMATION: Cough. COMPARISON: Chest radiograph 09/20/2023 TECHNIQUE: 2 views of the chest were obtained. FINDINGS: Normal appearance of the cardiomediastinal structures. No effusions or pneumothoraces. No focal pulmonary consolidation. Mild aortic calcific atherosclerosis. Normal pattern of pulmonary vasculature. XR/XR chest 2V IMPRESSION: No acute cardiopulmonary abnormalities.
--- NOTE | ~2024-05-02 | CT_ITS ---
EXAMINATION: CT ABDOMEN AND PELVIS WITH CONTRAST CLINICAL INFORMATION: Pain, nausea and vomiting. COMPARISON: Abdominal ultrasound July 30, 2021 TECHNIQUE: Multidetector volumetric images were obtained from the superior aspect of the liver through the pubic symphysis following administration 85 mL of Omnipaque 350 intravenous contrast. Sagittal and coronal reformatted images were obtained on the technologist's workstation. This CT examination was performed using dose optimization techniques as appropriate, variously including the following: *Automated exposure control *Adjustment of mA and/or kV according to patient size (this includes techniques or standardized protocols for targeted exams where dose is matched to indication/reason for exam; i.e. extremities or head) *Use of iterative reconstruction technique DLP: 565 mGy-cm FINDINGS: Visualized lung bases demonstrate mild dependent atelectasis. The liver is normal in size. The gallbladder is normal in appearance. Symmetrically enhancing kidneys. There is mild prominence of both collecting systems without overt hydronephrosis. Small hiatal hernia. The stomach is decompressed. Normal caliber loops of small and large bowel. Moderate colonic diverticulosis without CT evidence to suggest active diverticulitis. Normal caliber abdominal aorta demonstrating mild to moderate atherosclerotic disease. Retroaortic left renal vein. The bladder is prominently distended and normal in appearance. The uterus is surgically absent. No gross free pelvic fluid. No inguinal lymphadenopathy. Diffuse osteopenia. Degenerative changes of the spine. 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 CT/CT abdomen pelvis w IV con IMPRESSION: -Colonic diverticulosis without CT evidence to suggest active diverticulitis. -Prominently distended bladder. Prominence of both renal collecting systems likely the sequela of the patient's distended bladder. No renal calculi present. Fleischner guidelines were followed.
--- NOTE | ~2024-05-02 | CT_ITS ---
EXAM: Noncontrast CT scan of the head and cervical spine. INDICATION: Pain after fall COMPARISON: Head CT September 10, 2022 TECHNIQUE: Axial slices were obtained from skull base to vertex and displayed. This was followed by helical, multislice, multidetector axial images from the occiput to the upper thorax. Coronal and sagittal reformats of the cervical spine in addition to coronal reformats of the head were obtained at the technologist workstation. DLP: 881 mGy-cm FINDINGS: HEAD: There is no evidence of acute intracranial hemorrhage or territorial infarction. No abnormal mass effect or midline shift is appreciated. Rachel-white differentiation is well preserved. No extra-axial fluid collections. The ventricular system and cortical sulci are prominent, consistent with volume loss. There are areas of low density in the periventricular and subcortical white matter, most consistent with sequelae of microvascular ischemic change. The osseous structures and soft tissues are normal. There are calcifications of the cavernous internal carotid arteries. The visualized paranasal sinuses and mastoid air cells are well aerated. SPINE: There is straightening of the normal cervical lordosis. Also noted is minimal anterolisthesis of C3 on C4 with mild anterolisthesis of C4 on C5. Normal C1/2 articulation. Cervical vertebral body heights are maintained. There is moderate to severe narrowing of the C5/6 and C6/7 disc space height. Small osteophytes are scattered throughout the cervical spine. Mild diffuse facet hypertrophy bilaterally. Visualized lung apices are well aerated. CT/CT cervical spine wo IV con IMPRESSION: 1. No acute intracranial pathology. 2. No fractures or dislocations of the cervical spine.
[2024-05-02 22:03] VITALS: BP 129/50; PULSE 94; RESP 18; TEMP 37.5; O2SAT 96; BMI 29.9
[2024-05-03] VITALS (7 sets, daily range): BP systolic 123–146; BP diastolic 52–65; PULSE 89–112; RESP 16–20; TEMP 36.9–39.3; O2SAT 95–97
--- OUTSIDE RECORDS SUMMARY | 2024-05-03 02:18 | XMS_ITS | Continuity of Care Document ---
Author Organization [facility] Address [address] [place] [address]- Care Team Providers Care Heel Compressor Name Role Phone Heather BINGHAM, Christina Lu Primary Care Physician Unav ailable Encounter 03/19/24 - 03/26/24 [facility] [address], [address] [place], [place] [address] Attending Physician: Ramirez Gonsales DC Admitting Physician: Ramirez Gonsales DC Referring Physician: Ramirez Gonsales DC Allergies, Adverse Reactions, Alerts No Known Allergies Medications calcium and vitamin D combination 250 mg-125 u oral tablet 1 tablet, By Mouth, 3 times a day, 0 Refills, Maintenance Start Date: 07/15/11 Status: Ordered Levothroid 0.112 mg oral tablet 1 tablet, By Mouth, Daily, # 30 tablet, 0 Refills, Maintenance, Tablet Start Date: 07/15/11 Status: Ordered Lipitor 80 mg oral tablet 1 tablet, By Mouth, Daily, # 30 tablet, 0 Refills, Maintenance, Tablet Start Date: 07/15/11 Status: Ordered Vitamin B12 100 mcg oral tablet 1 tablet, By Mouth, Daily, # 30 tablet, 0 Refills, Maintenance, Tablet Start Date: 07/15/11 Status: Ordered vitamin E 400 iu oral capsule 1 capsule, By Mouth, Daily, # 100 capsule, 0 Refills, Maintenance, Capsule Start Date: 07/15/11 Status: Ordered Results Radiology Reports * Exam Date Time Procedure Performing Provider Status 03/19/24 1:09 PM Cervical Spine 4 or 5 Views Tammie Diaz; Kerry (Verified) Notes: (Cervical Spine 4 or 5 Views) Reason For Exam: pain RESULT: Cervical Spine 4 or 5 Views Cervical Spine 4 or 5 Views Reason: pain COMPARISON: None. FINDINGS: No bone lesions or fractures. Moderate degenerative changes throughout the cervical spine with intervertebral disc space narrowing and marginal spurring, most pronounced at C5-C7 and C1-C2. Mild neural foraminal stenosis on the bilaterally C5-C7. Normal prevertebral soft tissues and clear lung apices. IMPRESSION: Moderate degenerative changes of the cervical spine. WSN: [id number] Ordering Physician: Tika Farmer Dictated By: Ramirez Claros MD Dictated Date/Time: 03/19/24 4:48 pm Reviewed By: Ramirez Claros MD Signed By: Ramirez Claros MD Signed Date/Time: 03/19/24 4:48 pm Transcribed By: ANGEL Transcribed Date/Time: 03/19/24 4:45 pm Patient Care team information Care Team Related Persons Name: SUKHJINDER SCHULTZ Address: [address] [address]
[2024-05-03 02:25] LABS: MANUAL DIFF FLAG NO
[2024-05-03 02:27] LABS: Basophils Percent Auto 0.2 % (0-2); Eosinophils Percent Auto 0.1 % (0-4); Hematocrit 30.5 % (37.0-47.0); Hemoglobin 10.5 g/dl (12.0-16.0); Imm Gran Abs Auto 0.17 X10*3/uL (0.00-0.03); Imm Gran Pct Auto 1.1 % (0.0-0.4); Mean Corpuscular HGB Conc 34.4 g/dl (31.0-35.0); Mean Corpuscular Hemoglobin 31.8 pg (27.0-33.0); Mean Corpuscular Volume 92.4 fL (80.0-98.0); Monocytes Absolute Auto 1.2 X10*3/uL (0.1-1.2); Monocytes Percent Auto 8.1 % (2-11); Neutrophils Absolute Auto 11.7 x10*3/uL (2.0-8.3); Neutrophils Percent Auto 77.5 % (45-73); Platelet Count 316 X10*3/uL (160-400); Red Cell Distribution Width 12.3 % (11.0-16.0); White Blood Count 15.1 X10*3/uL (4.8-10.8)
[2024-05-03 02:35] LABS: Appearance Urine Cloudy; Color Urine Yellow; Glucose Urine UA Negative (Negative); Leukocyte Esterase Urine Large (3+) (Negative); Nitrite Urine Negative (Negative); PH 5.5 (5.0-9.0); UMIC TRIGGER UACC YES; Urine Blood Moderate (2+) (Negative); Urine Ketones Negative (Negative); Urine Protein 30 (1+) mg/dL (Neg-Trace)
[2024-05-03 02:40] LABS: Alanine Aminotransferase 18 U/L (0-31); Albumin Level 3.7 g/dL (3.5-5.0); Alkaline Phosphatase 72 U/L (39-117); Anion Gap 16 (12-20); Aspartate Amino Transferase 29 U/L (5-31); Bilirubin Total 0.5 mg/dL (0.0-1.0); Blood Urea Nitrogen 15 mg/dL (9-16); Calcium 9.5 mg/dL (8.4-10.2); Carbon Dioxide 23 mmol/L (22-29); Chloride 94 mmol/L (96-108); Creatinine Clr Calc Pharmacy 43.5; Estimated Glomerular Filt Rate > 60; Glucose Random 123 mg/dL (60-115); Magnesium 2.5 mg/dL (1.6-2.6); Potassium 3.9 mmol/L (3.3-5.1); Sodium 129 mmol/L (135-145); Total Protein 7.7 g/dL (6.5-8.0)
[2024-05-03 02:47] LABS: Bacteria Urine 4+ (None Seen); Hyaline Casts Urine 0-2 /LPF (0-2); RBC Urine 0-2 /HPF (0-2); Squamous Epithelial Cell Urine 0-2 /HPF (0-2); UACC Culture Trigger YES; WBC Urine >50 /HPF (0-5)
[2024-05-03 03:14] LABS: Influenza A PCR NEGATIVE (Negative); Influenza B PCR NEGATIVE (Negative); Resp Syncy Virus RNA Qual PCR NEGATIVE (Negative); SARS COV2 PCR INHOUSE NEGATIVE (Negative)
--- NOTE | 2024-05-03 05:03 | PC.NURSE ---
Pt A&Ox3, reports 9/10 ANGELO. Pt reports feeling tired around 1130pm while coming out of the BR, Pt reports feeling like she was going to fall backwards and leaned up against the wall and lowered self to floor. Pt reports grandson and daughter in-law were there with her. Pt denies injury. Pt febrile, denies urinary frequency, pain or burning with urination. Pt reports dry cough x 1 month and bilateral leg swelling.
[2024-05-03] MEDS: Acetaminophen 325 MG TABLET 650 MG PO (05:28)
--- NOTE | 2024-05-03 06:33 | ED.GENADULT ---
HPI - General Adult General Chief complaint: General Medical Stated complaint: fell twice today, bad cold, fever Time Seen by Provider: 05/03/24 06:33 Source: patient and family (patient's son) Mode of arrival: ambulatory Limitations: no limitations History of Present Illness ED Provider: Izabela Huynh PA-C HPI narrative: 83 year old female with a PMHx of osteoarthritis of right hand, osteoporosis, hypercholesterolemia, peripheral vascular disease, HTN, hypothyroid, and chronic cough presents to the ER due to loosing balance at 4 am this morning. She was going to use the bathroom and before doing so, she lost her balance, and lowered herself to the floor. She also felt a hill of burning sensation going down from her head down to her body. Denies vertigo, room spinning or light headedness. Denies LOC, blood thinners, or head strike. She was unable to get up on her own so she fell asleep on the floor. Son woke up at 8 am and helped patient up. Has headache. Denies visions changes. She has had a dry cough for 1 month. Denies chest pain, SOB,visions changes. Loss of appetite and nausea. Has urinary urgency with no urinary frequency, dysuria, back, abdominal or flank pain. Denies hematuria, fever or chills. MD complaint: Loss of balance Onset (ago): hour(s) Associated symptoms: headaches, loss of appetite and nausea/vomiting Treatments prior to arrival: NSAID (Celebrex ) Related Data Home Medications ?Medication ?Instructions ?Recorded ?Confirmed cholecalciferol (vitamin D3) 25 25 mcg PO BEDTIME 10/20/21 03/13/24 mcg (1,000 unit) capsule cyanocobalamin (vitamin B-12) 1,000 mcg PO QPM 10/20/21 03/13/24 1,000 mcg capsule fluticasone propionate 50 1 spray intranasal DAILY 02/16/23 03/13/24 mcg/actuation nasal spray,suspension propylene glycol 0.6 % eye drops 1 drp ophthalmic (eye) BEDTIME 02/16/23 03/13/24 (Systane Balance) tizanidine 4 mg capsule 4 mg PO BID PRN Muscle Spasm 02/16/23 03/13/24 Previous Rx's ?Medication ?Instructions ?Recorded meclizine 25 mg tablet 25 mg PO TID PRN dizziness 7 days 03/10/22 #21 tabs acetaminophen 325 mg tablet 650 mg (2 x 325 mg) PO Q6H PRN 06/01/23 Pain, Mild (Pain Scale 1-3) 30 days #240 tabs docusate sodium 100 mg capsule 100 mg PO BID 14 days #28 caps 06/16/23 amlodipine 2.5 mg tablet 2.5 mg PO DAILY #90 tabs 09/25/23 levothyroxine 112 mcg tablet 112 mcg PO DAILY@0600 #90 tabs 03/07/24 atorvastatin 80 mg tablet 80 mg PO BEDTIME #90 tabs 03/12/24 celecoxib 200 mg capsule (Celebrex) 200 mg PO BID PRN pain #30 caps 03/13/24 fexofenadine 180 mg tablet 180 mg PO DAILY #90 tabs 03/13/24 (Flavia Allergy) benzonatate 100 mg capsule 100 mg PO BID PRN cough 7 days #14 05/03/24 caps cefuroxime axetil 250 mg tablet 250 mg PO BID 7 days #14 tabs 05/03/24 Allergies Allergy/AdvReac Type Severity Reaction Status Date / Time amoxicillin Allergy Intermediate rectal Verified 05/02/24 22:06 bleeding lisinopril Allergy Intermediate cough Verified 05/02/24 22:06 Review of Systems Constitutional: Constitutional: Reports as per HPI, Denies body ache(s), Denies fever(s), Reports headache(s) and Reports poor appetite Eyes: Eyes: Reports no additional eye complaints, Denies blurry vision, Denies change in vision, Denies diplopia, Denies eye discharge, Denies loss of vision and Denies eye pain ENT: Reports dizziness and Reports headache(s) Cardiovascular: Cardiovascular: Reports no additional cardiovascular complaints, Denies chest pain, Denies lightheadedness, Denies Loss of Consciousness and Denies dyspnea Respiratory: Respiratory: Reports no additional respiratory complaints and Denies dyspnea Gastrointestinal: Gastrointestinal: Reports no additional gastrointestinal complaints, Denies abdominal pain, Denies melena, Denies hematochezia, Denies change in bowel habits, Denies change in stool character and Denies vomiting Genitourinary: Genitourinary: Denies hematuria, Denies urinary frequency, Denies dysuria, Denies flank pain, Denies urinary incontinence, Denies urinary hesitancy and Reports urinary urgency Musculoskeletal: Musculoskeletal: Reports no additional musculoskeletal complaints, Denies numbness and Denies tingling Neurologic: Reports dizziness, Reports headache(s), Denies loss of vision, Denies numbness and Denies tingling Psychiatric: Psychiatric: Reports no additional psychiatric complaints Endocrine: Endocrine: Reports no additional endocrine complaints Hematologic/Lymphatic: Hematologic/Lymphatic: Reports no additional hematologic/lymphatic complaints Allergic/Immunologic: Allergic/Immunologic: Reports no additional allergic/immunologic complaints PMFSH Past Medical History Attestation statement: The following information was validated with the patient. (all information validated with the patient's son) Source: old records reviewed and nursing notes reviewed Medical History Bilateral hand numbness Impaired vision Osteoarthritis of right knee Tinnitus of both ears Dizziness B12 deficiency Neck pain Overweight (BMI 25.0-29.9) Cataract, left eye Cataract Cough Hypercholesterolemia Anxiety Peripheral vascular disease Osteopenia Hypothyroid Hypertension Surgical History History of right cataract surgery History of left knee replacement History of lumpectomy of left breast History of colonoscopy History of hysterectomy History of thyroidectomy Family History Family History Father CAD (coronary artery disease) CVD (cardiovascular disease) Mother Hypertension Stroke Aneurysm Family/Other Hyperlipidemia Social History Social History Household Members: None Housing: Apartment Are you a primary caregivers homecare to a significant other at home: No Do you presently have visiting nurse or other home services: Yes Alcohol intake: never Patient Tobacco Use Status: Former Tobacco user Tobacco use type: Cigarette Years Smoked: 10 Smoked in Last 30 Days: No e-Cigarette/Vaping Use: Never Used Second Hand Smoke Exposure: No Use of substances other than those prescribed or required for medical reasons: No Advance Directives: Yes Advance Directives on File: Yes Advance Directives Date on File: 06/06/23 Do you have a plan to hurt others: No Plan service: No Current occupational status: retired Cognitive needs: No Hearing needs: No Vision needs: Yes Physical Exam ED Vital Signs: Vital Signs - 24 hr 05/02/24 22:03 05/03/24 04:56 05/03/24 05:32 Temperature 99.5 F 102.7 F H Pulse Rate 94 102 H 95 Respiratory Rate 18 20 Blood Pressure 129/50 L 146/60 H 141/52 H Pulse Oximetry 96 97 Oxygen Delivery Method Room Air Room Air 05/03/24 05:32 05/03/24 05:36 05/03/24 06:18 Temperature 98.9 F Pulse Rate 101 H 112 H 110 H Respiratory Rate 16 Blood Pressure 135/55 L 140/65 H 140/65 H Pulse Oximetry 97 Oxygen Delivery Method Room Air 05/03/24 06:28 05/03/24 09:34 05/03/24 10:15 Temperature 98.9 F 98.5 F 98.5 F Pulse Rate 91 89 89 Respiratory Rate 18 16 16 Blood Pressure 123/53 L 132/54 L 132/54 L Pulse Oximetry 95 95 Oxygen Delivery Method Room Air Room Air BMI result Body Mass Index 29.9 Const General: cooperative, no acute distress, alert and awake Nutritional Appearance: well nourished Orientation/consciousness: patient oriented x3 Limitations: no limitations HENMT Head: Yes normal to inspection and Yes atraumatic Ears: hearing grossly normal bilaterally and external ears normal General nose exam: Normal external nose present, no nasal discharge noted and no epistaxis Face and sinus: Yes normal facial exam, No abrasion and No laceration Mouth: Normal oral and palatal mucosa present, no drooling and no muffled voice Eyes General: appearance normal, both eyes and all related structures Periorbital: periorbital findings normal Eyelids: Yes eyelids normal Conjunctivae: conjunctivae normal Pupils: Equal, round and reactive pupils present EOM: EOMs intact bilaterally Neck Neck: Yes normal visual inspection, Yes full ROM and Yes no lymphadenopathy Chest Chest palpation & inspection: normal inspection of the chest Resp Effort & Inspection: normal respiratory effort and able to speak in complete sentences GI Inspection: Yes normal to inspection Palpation (GI): Soft to palpation, not firm, nontender, no guarding and not rigid Neuro General: patient oriented x3 and moves all extremities Cranial nerves: Yes Equal, round and reactive pupils present Cognition (Neuro): normal cognition Extrem General: Yes normal to inspection, Yes full ROM and Yes capillary refill normal Psych Appearance: grossly normal Mental Status: mental status grossly normal Affect: normal affect Attitude: cooperative Thought process: Normal thought process present Thought content: Normal thought content present Insight: Good insight present (Psych) Medications Administered Discontinued Medications Generic Name Dose Route Start Last Admin Trade Name Ronel PRN Reason Stop Dose Admin Acetaminophen 650 mg 05/03/24 05:22 05/03/24 05:28 Acetaminophen 325 Mg Tablet PO 05/03/24 05:23 650 mg ONCE ONE Administration Ceftriaxone Sodium 1 gm/ 50 mls @ 100 mls/hr 05/03/24 07:10 05/03/24 08:23 Sodium Chloride IV 05/03/24 07:39 Infused ONCE ONE Infusion Sodium Chloride 1,000 mls @ 999 mls/hr 05/03/24 07:15 05/03/24 09:00 Ns IV 05/03/24 08:15 Infused .Q1H1M DUGLAS Infusion Iohexol 85 ml 05/03/24 08:55 05/03/24 08:55 Iohexol 350 Mg/Ml 100 Ml Infus..Btl IV 05/03/24 08:56 85 ml ONCE ONE Administration Ondansetron HCl 4 mg 05/03/24 07:12 05/03/24 07:37 Ondansetron Hcl 4 Mg/2 Ml Vial IVPUSH 05/03/24 07:13 4 mg ONCE ONE Administration Medical Decision Making Medical Decision Making MDM Narrative: Patient is an 83 year old assigned female at with a history of HTN and hypothryoidism presenting to the emergency department today after a syncopal episode. Patient's physical exam was as noted in the physical exam portion of this note. Patient's blood work showed an elevated WBC count of 15.1 and a sodium of 129 but were otherwise unremarkable. Patient's urine showed evidence of an acute infection. Patient's chest x-ray, head CT, c-spine CT, and abdomen/pelvis CT showed no acute process. I explained my physical exam findings as well as all test results to the patient and the patient's son. I answered all questions asked by the patient and the patient's son. Patient's clinical presentation is not consistent with sepsis (@0710). I stressed the importance of the patient taking her medication as directed (either prescribed or as the over the counter packaging recommends). I stressed the importance of the patient following up with her primary care provider. I stressed the importance of the patient returning to the emergency department immediately if her symptoms were to worsen or if she were to develop any dizziness, shortness of breath, difficulty breathing, chest pain, blurry vision, loss of vision, nausea, vomiting, abdominal pain, fever, chills, back pain, or any other complaints. Patient verbalized agreement and understanding with this treatment plan and discharge. Differential Diagnosis Differential Diagnoses: The differential diagnosis associated with the presentation includes UTI Syncopal episode Vasovagal episode Cough Viral illness Admission/Observation Consideration of admission/observation: Escalation of care including admission/observation considered Patient would have been admitted to the hospital had her work up had any findings where hospital admission was appropriate and her clinical presentation warranted hospital admission. Lab Data [facility] Lab Attestation statement: I reviewed the patient's lab results. My interpretation of these results are in the [facility] Rationale portion of this note. 05/03/24 02:19 05/03/24 02:19 Labs: Lab Results 05/03/24 Range/Units 02:19 WBC 15.1 H (4.8-10.8) X10*3/uL RBC 3.30 L (4.20-5.50) X10*6/uL Hgb 10.5 L (12.0-16.0) g/dl Hct 30.5 L D (37.0-47.0) % MCV 92.4 (80.0-98.0) fL MCH 31.8 (27.0-33.0) pg MCHC 34.4 (31.0-35.0) g/dl RDW 12.3 (11.0-16.0) % Plt Count 316 (160-400) X10*3/uL MPV 9.0 L (9.4-12.3) fL Immature Gran % (Auto) 1.1 H (0.0-0.4) % Neut % (Auto) 77.5 H (45-73) % Lymph % (Auto) 13.0 L (20-40) % [place] % (Auto) 8.1 (2-11) % Eos % (Auto) 0.1 (0-4) % Baso % (Auto) 0.2 (0-2) % Lymph # (Auto) 2.0 (1.2-4.9) X10*3/uL [place] # (Auto) 1.2 (0.1-1.2) X10*3/uL Eos # (Auto) 0.0 (0.0-0.4) X10*3/uL Baso # (Auto) 0.0 (0.0-0.2) X10*3/uL Abs Immat Gran (auto) 0.17 H (0.00-0.03) X10*3/uL Absolute Neuts (auto) 11.7 H (2.0-8.3) x10*3/uL Absolute Nucleated RBC 0.000 (0.0-0.012) X10*3/uL Nucleated RBC % (auto) 0.0 (0.0-0.2) /100WBC Sodium 129 L (135-145) mmol/L Potassium 3.9 (3.3-5.1) mmol/L Chloride 94 L (96-108) mmol/L Carbon Dioxide 23 (22-29) mmol/L Anion Gap 16 (12-20) BUN 15 (9-16) mg/dL Creatinine 0.82 (0.5-1.4) mg/dL Estim Creat Clear Calc 43.5 Estimated GFR > 60 Random Glucose 123 H (60-115) mg/dL Calcium 9.5 (8.4-10.2) mg/dL Magnesium 2.5 (1.6-2.6) mg/dL Total Bilirubin 0.5 (0.0-1.0) mg/dL AST 29 (5-31) U/L ALT 18 (0-31) U/L Alkaline Phosphatase 72 (39-117) U/L Total Protein 7.7 (6.5-8.0) g/dL Albumin 3.7 (3.5-5.0) g/dL Urine Color Yellow Urine Appearance Cloudy Urine pH 5.5 (5.0-9.0) Ur Specific Ralph 1.010 (1.005-1.025) Urine Protein 30 (1+) H (Neg-Trace) mg/dL Urine Glucose (UA) Negative (Negative) mg/dL Urine Ketones Negative (Negative) mg/dL Urine Blood Moderate (2+) H (Negative) Urine Nitrite Negative (Negative) Ur Leukocyte Esterase Large (3+) H (Negative) Urine RBC 0-2 (0-2) /HPF Urine WBC >50 H (0-5) /HPF Ur Squamous Epith Cells 0-2 (0-2) /HPF Urine Bacteria 4+ (None Seen) Hyaline Casts 0-2 (0-2) /LPF Influenza Type A (PCR) NEGATIVE (Negative) Influenza Type B (PCR) NEGATIVE (Negative) RSV RNA Qual (PCR) NEGATIVE (Negative) SARS-CoV-2 RNA (RT-PCR) NEGATIVE (Negative) Independent Interpretation I performed an independent interpretation of an: Plain X-Ray and CT Scan Interpretation: My interpretation is in agreement with the radiologist's impression of these imaging studies. EXAMINATION: XR CHEST CLINICAL INFORMATION: Cough. COMPARISON: Chest radiograph 09/20/2023 TECHNIQUE: 2 views of the chest were obtained. FINDINGS: Normal appearance of the cardiomediastinal structures. No effusions or pneumothoraces. No focal pulmonary consolidation. Mild aortic calcific atherosclerosis. Normal pattern of pulmonary vasculature. XR/XR chest 2V IMPRESSION: No acute cardiopulmonary abnormalities. Dictated By: Martin Saldivar MD Signed By: Electronically signed by Martin Saldivar MD 05/03/24 0345 EXAM: Noncontrast CT scan of the head and cervical spine. INDICATION: Pain after fall COMPARISON: Head CT September 10, 2022 TECHNIQUE: Axial slices were obtained from skull base to vertex and displayed. This was followed by helical, multislice, multidetector axial images from the occiput to the upper thorax. Coronal and sagittal reformats of the cervical spine in addition to coronal reformats of the head were obtained at the technologist workstation. DLP: 881 mGy-cm FINDINGS: HEAD: There is no evidence of acute intracranial hemorrhage or territorial infarction. No abnormal mass effect or midline shift is appreciated. Rachel-white differentiation is well preserved. No extra-axial fluid collections. The ventricular system and cortical sulci are prominent, consistent with volume loss. There are areas of low density in the periventricular and subcortical white matter, most consistent with sequelae of microvascular ischemic change. The osseous structures and soft tissues are normal. There are calcifications of the cavernous internal carotid arteries. The visualized paranasal sinuses and mastoid air cells are well aerated. SPINE: There is straightening of the normal cervical lordosis. Also noted is minimal anterolisthesis of C3 on C4 with mild anterolisthesis of C4 on C5. Normal C1/2 articulation. Cervical vertebral body heights are maintained. There is moderate to severe narrowing of the C5/6 and C6/7 disc space height. Small osteophytes are scattered throughout the cervical spine. Mild diffuse facet hypertrophy bilaterally. Visualized lung apices are well aerated. CT/CT head/brain wo IV con IMPRESSION: 1. No acute intracranial pathology. 2. No fractures or dislocations of the cervical spine. Dictated By: Jerry Coleman MD Signed By: Electronically signed by Jerry Coleman MD 05/03/24 0939 EXAMINATION: CT ABDOMEN AND PELVIS WITH CONTRAST CLINICAL INFORMATION: Pain, nausea and vomiting. COMPARISON: Abdominal ultrasound July 30, 2021 TECHNIQUE: Multidetector volumetric images were obtained from the superior aspect of the liver through the pubic symphysis following administration 85 mL of Omnipaque 350 intravenous contrast. Sagittal and coronal reformatted images were obtained on the technologist's workstation. This CT examination was performed using dose optimization techniques as appropriate, variously including the following: *Automated exposure control *Adjustment of mA and/or kV according to patient size (this includes techniques or standardized protocols for targeted exams where dose is matched to indication/reason for exam; i.e. extremities or head) *Use of iterative reconstruction technique DLP: 565 mGy-cm FINDINGS: Visualized lung bases demonstrate mild dependent atelectasis. The liver is normal in size. The gallbladder is normal in appearance. Symmetrically enhancing kidneys. There is mild prominence of both collecting systems without overt hydronephrosis. Small hiatal hernia. The stomach is decompressed. Normal caliber loops of small and large bowel. Moderate colonic diverticulosis without CT evidence to suggest active diverticulitis. Normal caliber abdominal aorta demonstrating mild to moderate atherosclerotic disease. Retroaortic left renal vein. The bladder is prominently distended and normal in appearance. The uterus is surgically absent. No gross free pelvic fluid. No inguinal lymphadenopathy. Diffuse osteopenia. Degenerative changes of the spine. 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 CT/CT abdomen pelvis w IV con IMPRESSION: -Colonic diverticulosis without CT evidence to suggest active diverticulitis. -Prominently distended bladder. Prominence of both renal collecting systems likely the sequela of the patient's distended bladder. No renal calculi present. Fleischner guidelines were followed. Dictated By: Jerry Coleman MD Signed By: Electronically signed by Jerry Coleman MD 05/03/24 0924 EXAM: Noncontrast CT scan of the head and cervical spine. INDICATION: Pain after fall COMPARISON: Head CT September 10, 2022 TECHNIQUE: Axial slices were obtained from skull base to vertex and displayed. This was followed by helical, multislice, multidetector axial images from the occiput to the upper thorax. Coronal and sagittal reformats of the cervical spine in addition to coronal reformats of the head were obtained at the technologist workstation. DLP: 881 mGy-cm FINDINGS: HEAD: There is no evidence of acute intracranial hemorrhage or territorial infarction. No abnormal mass effect or midline shift is appreciated. Rachel-white differentiation is well preserved. No extra-axial fluid collections. The ventricular system and cortical sulci are prominent, consistent with volume loss. There are areas of low density in the periventricular and subcortical white matter, most consistent with sequelae of microvascular ischemic change. The osseous structures and soft tissues are normal. There are calcifications of the cavernous internal carotid arteries. The visualized paranasal sinuses and mastoid air cells are well aerated. SPINE: There is straightening of the normal cervical lordosis. Also noted is minimal anterolisthesis of C3 on C4 with mild anterolisthesis of C4 on C5. Normal C1/2 articulation. Cervical vertebral body heights are maintained. There is moderate to severe narrowing of the C5/6 and C6/7 disc space height. Small osteophytes are scattered throughout the cervical spine. Mild diffuse facet hypertrophy bilaterally. Visualized lung apices are well aerated. CT/CT cervical spine wo IV con IMPRESSION: 1. No acute intracranial pathology. 2. No fractures or dislocations of the cervical spine Dictated By: Jerry Coleman MD Signed By: Electronically signed by Jerry Coleman MD 05/03/24 0939 Radiology Impression Discussion of test interpretation with radiology: I have reviewed the radiologist's reading. Independent Historian Clinical information obtained from an independent historian. History obtained from or confirmed by: Other (patient's son provided additional history and confirmed the history provided by the patient.) Prescription Management I considered prescription management with: Antibiotic (patient prescribed an antibiotic for UTI) Chronic Conditions Patient?s care impacted by: Hypertension Discharge Plan Discharge Clinical Impression: Acute UTI, Cough Patient Disposition: Home, Self-Care Instructions: Urinary Tract Infection in Women (DC), Acute Cough (ED) Additional Instructions: Follow up with your primary care provider. Return to the emergency department immediately if your symptoms worsen or if you develop any dizziness, shortness of breath, difficulty breathing, chest pain, blurry vision, loss of vision, nausea, vomiting, abdominal pain, fever, chills, back pain, or any other complaints. Prescriptions: New cefuroxime axetil 250 mg tablet 250 mg PO BID 7 Days Qty: 14 0RF benzonatate 100 mg capsule 100 mg PO BID PRN (Reason: cough) 7 Days Qty: 14 0RF No Action amlodipine 2.5 mg tablet 2.5 mg PO DAILY Qty: 90 2RF levothyroxine 112 mcg tablet 112 mcg PO DAILY@0600 Qty: 90 0RF atorvastatin 80 mg tablet 80 mg PO BEDTIME Qty: 90 1RF acetaminophen 325 mg Tablet 650 mg PO Q6H PRN (Reason: Pain, Mild (Pain Scale 1-3)) 30 Days Qty: 240 2RF cyanocobalamin (vitamin B-12) 1,000 mcg capsule 1,000 mcg PO QPM cholecalciferol (vitamin D3) 25 mcg (1,000 unit) capsule 25 mcg PO BEDTIME meclizine 25 mg tablet 25 mg PO TID PRN (Reason: dizziness) 7 Days Qty: 21 0RF celecoxib [Celebrex] 200 mg capsule 200 mg PO BID PRN (Reason: pain) Qty: 30 0RF fexofenadine [Flavia Allergy] 180 mg tablet 180 mg PO DAILY Qty: 90 2RF docusate sodium 100 mg capsule 100 mg PO BID 14 Days Qty: 28 0RF tizanidine 4 mg capsule 4 mg PO BID PRN (Reason: Muscle Spasm) fluticasone propionate 50 mcg/actuation spray,suspension 1 spray intranasal DAILY Rx Instructions: administer into each nostril Systane Balance 0.6 % drops 1 drp ophthalmic (eye) BEDTIME Referrals: Po,Jessica Sandoval MD [Primary Care Provider] - Interventions: ED Discharge Assessment Last Done: 05/03/24 10:15 Discharge Date/Time: 05/03/24 10:16 Print Language: Maltese
[2024-05-03] MEDS: ondansetron HCL 4 MG/2 ML VIAL IVPUSH (07:37)
[2024-05-03] MEDS: cefTRIAXone sodium 1 GM in 0.9 % Sodium Chloride 50 ML IV (07:37)
[2024-05-03] MEDS: 0.9 % Sodium Chloride 1,000 ML 999 ML IV (07:37)
--- NOTE | 2024-05-03 07:54 | PC.NURSE ---
medicated per the MAR - antibiotics and fluids infusing. patient alert and oriented with even and unlabored respirations. family is at bedside, patient aware of plan for ct scan after antibiotics have infused.
[2024-05-03] MEDS: iohexoL 350 MG/ML 100 ML INFUS..BTL 85 ML IV (08:55)
--- NOTE | 2024-05-03 09:00 | PC.NURSE ---
back from CT scan, states she uses a walker at baseline - ambulated to the bathroom independently with device. states she is feeling better than last night.
--- NOTE | 2024-05-03 09:52 | PC.NURSE ---
ambulated to the bathroom, post void bladder scan obtained - 74 mL in bladder. patient tolerated well.
== END 2024-05-03 10:16 | disposition home or self-care (01) ==
PROVIDERS: Emergency Provider Emergency Medicine; PCP Internal Medicine
DX: N39.0 Urinary tract infection, site not specified (principal); R05.9 Cough, unspecified; R11.2 Nausea with vomiting, unspecified; R51.9 Headache, unspecified; M54.2 Cervicalgia; R50.9 Fever, unspecified; Z03.818 Encounter for observation for suspected exposure to other biological agents ruled out; Z79.899 Other long term (current) drug therapy
CPT/HCPCS: 0241U; 36415; 51798; 70450; 71046; 72125; 74177; 80053; 81001; 83735; 85025; 87086; 87088; 87186; 96361; 96365; 96375; 99284; 99285; J0696; J2405; Q9967

== ENCOUNTER 2024-05-11 07:31 | Outpatient (REF) | payer MEDICARE, OTHER, SELFPAY ==
[2024-05-11 07:44] LABS: MANUAL DIFF FLAG NO
[2024-05-11 09:04] LABS: Basophils Absolute Auto 0.1 X10*3/uL (0.0-0.2); Basophils Percent Auto 0.6 % (0-2); Eosinophils Absolute Auto 0.1 X10*3/uL (0.0-0.4); Eosinophils Percent Auto 1.1 % (0-4); Hematocrit 31.8 % (37.0-47.0); Hemoglobin 10.4 g/dl (12.0-16.0); Imm Gran Pct Auto 2.2 % (0.0-0.4); Lymphocytes Absolute Auto 2.5 X10*3/uL (1.2-4.9); Lymphocytes Percent Auto 27.3 % (20-40); Mean Corpuscular HGB Conc 32.7 g/dl (31.0-35.0); Mean Corpuscular Hemoglobin 30.8 pg (27.0-33.0); Mean Corpuscular Volume 94.1 fL (80.0-98.0); Mean Platelet Volume 9.3 fL (9.4-12.3); Monocytes Absolute Auto 0.6 X10*3/uL (0.1-1.2); Monocytes Percent Auto 7.1 % (2-11); Neutrophils Absolute Auto 5.5 x10*3/uL (2.0-8.3); Neutrophils Percent Auto 61.7 % (45-73); Platelet Count 420 X10*3/uL (160-400); Red Blood Count 3.38 X10*6/uL (4.20-5.50); Red Cell Distribution Width 13.1 % (11.0-16.0)
[2024-05-11 09:43] LABS: Alanine Aminotransferase 34 U/L (0-31); Albumin Level 3.6 g/dL (3.5-5.0); Alkaline Phosphatase 73 U/L (39-117); Anion Gap 15 (12-20); Aspartate Amino Transferase 29 U/L (5-31); Bilirubin Total 0.5 mg/dL (0.0-1.0); Blood Urea Nitrogen 15 mg/dL (9-16); Calcium 9.3 mg/dL (8.4-10.2); Carbon Dioxide 26 mmol/L (22-29); Chloride 100 mmol/L (96-108); Cholesterol 135 mg/dL (<200); Estimated Glomerular Filt Rate > 60; Glucose Random 102 mg/dL (60-115); HDL Cholesterol 35 mg/dL (>40); LDL Cholesterol Calculated 84 mg/dL (<100); Magnesium 2.5 mg/dL (1.6-2.6); Potassium 4.5 mmol/L (3.3-5.1); Sodium 136 mmol/L (135-145); Total Protein 7.5 g/dL (6.5-8.0); Triglycerides 82 mg/dL (<150)
[2024-05-11 09:50] LABS: Free T4 (Free Thyroxine) 1.15 ng/dL (0.71-1.85)
[2024-05-11 10:44] LABS: Folate 10.1 ng/mL (> or = 4.0); Vitamin B12 1082 pg/mL (200-900)
== END 2024-05-11 07:32 | disposition home or self-care (01) ==
LOC: HO.LAB 07:31
PROVIDERS: PCP Internal Medicine; Visit Provider Internal Medicine
DX: I10 Essential (primary) hypertension (principal); E78.00 Pure hypercholesterolemia, unspecified; Z96.651 Presence of right artificial knee joint
CPT/HCPCS: 36415; 80053; 80061; 82607; 82746; 83735; 84439; 84443; 85025

== ENCOUNTER 2024-05-15 14:31 | Outpatient (AMB) | payer MEDICARE, OTHER, SELFPAY ==
[2024-05-15 14:32] VITALS: BP 144/58; PULSE 92; O2SAT 96; BMI 29.7
--- NOTE | 2024-05-15 14:32 | MHC.PC.OV ---
Vital Signs 05/15/24 14:32 Height 5 ft Weight 152 lb BMI 29.7 BP 144/58 H Blood Pressure Location Lt brachial Position Sitting Pulse 92 Pulse Source Pulse Oximeter Pulse Oximetry (%) 96 Oxygen Delivery Method Room Air 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: 5 month f/u Sewer And Inspector Required: No Allergies amoxicillin Allergy (Intermediate, Verified 05/15/24 14:32) rectal bleeding lisinopril Allergy (Intermediate, Verified 05/15/24 14:32) cough Medication List - Last Reconciled 05/15/24 by Jessica Sharpe MD acetaminophen 650 mg (2 x 325 mg) PO Q6H PRN 30 days amlodipine 2.5 mg PO DAILY atorvastatin 80 mg PO BEDTIME celecoxib (Celebrex) 200 mg PO BID PRN cholecalciferol (vitamin D3) 25 mcg PO BEDTIME ciprofloxacin HCl (Cipro) 250 mg PO BID cyanocobalamin (vitamin B-12) 1,000 mcg PO QPM docusate sodium 100 mg PO BID 14 days escitalopram oxalate (Lexapro) 5 mg PO DAILY fexofenadine (Flavia Allergy) 180 mg PO DAILY fluticasone propionate 50 mcg/actuation 1 spray intranasal DAILY levothyroxine 112 mcg PO DAILY@0600 meclizine 25 mg PO TID PRN 7 days propylene glycol 0.6% (Systane Balance) 1 drp ophthalmic (eye) BEDTIME Tobacco use date assessed: 03/13/24 Fall risk assessment: 1 Fall in past year Last assessed Fall Risk: 05/15/24 Dental Screening Dental Screen Date: 09/20/23 HPI 5 month f/u HPI Details 83-year-old female with a history of hypertension, hypothyroidism peripheral vascular disease hypercholesterolemia osteoporosis lumbar degenerative disc disease osteoarthritis coming in for follow-up. Last seen in February 2024 nerve conduction test requested. Review of the notes ER visit 05/03/2024 for losing balance in the morning had a CT scan of the abdomen showing colonic diverticulosis distended bladder. Head CT showing no acute intracranial pathology. Patient was treated for UTI with cefuroxime patient had nerve conduction test showing right moderate to severe carpal tunnel syndrome only. sent for OT and procedure next month. family feels she is depressed- sister a month a go. expressing dont want to live. fall last week - was not eating and not taking med. L leg swelling increase PFSH Medical History (Updated 05/15/24 @ 14:53 by Jessica Sharpe MD) Numbness and tingling in left hand Bilateral hand numbness Impaired vision Osteoarthritis of right knee Tinnitus of both ears Dizziness B12 deficiency Neck pain Overweight (BMI 25.0-29.9) Cataract, left eye Cataract Cough Hypercholesterolemia Anxiety Peripheral vascular disease Osteopenia Hypothyroid Hypertension Surgical History History of right cataract surgery History of left knee replacement History of lumpectomy of left breast History of colonoscopy History of hysterectomy History of thyroidectomy Family History Father CAD (coronary artery disease) CVD (cardiovascular disease) Mother Hypertension Stroke Aneurysm Family/Other Hyperlipidemia Social History Household Members: None Housing: Apartment Are you a primary career placement specialist to a significant other at home: No Do you presently have visiting nurse or other home services: Yes Alcohol intake: never Patient Tobacco Use Status: Former Tobacco user Tobacco use type: Cigarette Years Smoked: 10 e-Cigarette/Vaping Use: Never Used Second Hand Smoke Exposure: No Advance Directives Date on File: 06/06/23 service: No Current occupational status: retired Cognitive needs: No Hearing needs: No Vision needs: Yes Questionnaire PHQ-9 Over the last 2 weeks, how often have you been bothered by any of the following problems? 1. Little interest or pleasure in doing things: not at all 2. Feeling down, depressed, or hopeless: not at all 3. Trouble falling or staying asleep, or sleeping too much: not at all 4. Feeling tired or having little energy: not at all 5. Poor appetite or overeating: not at all 6. Feeling bad about yourself - or that you are a failure or have let yourself or your family down: not at all 7. Trouble concentrating on things, such as reading the newspaper or watching television: not at all 8. Moving or speaking so slowly that other people could have noticed. Or the opposite - being so fidgety or restless that you have been moving around a lot more than usual: not at all 9. Thoughts that you would be better off or of hurting yourself in some way: not at all Total score: 0 Depression Screening Interpretation: Negative Depression Screening Done: Yes Source: Developed by Drs. Darren Noel, Dago Figueroa and colleagues, with an educational madelyn from [employer]. Thrive Questionnaire Date Thrive assessed: 12/27/23 AUDIT C Alcohol Use Questionnaire (AUDIT-C) 1. How often do you have a drink containing alcohol?: Never 2. How many drinks containing alcohol do you have on a typical day when you are drinking?: 1 or 2 3. How often do you have six or more drinks on one occasion?: Never Total Score: 0 Score Reviewed/Action Taken: No MISAEL-7 AMB Questionnaire MISAEL-7 Date MISAEL - 7 assessed: 12/27/23 Source: Developed by Drs. Darren Noel, Dago Figueroa and colleagues, with an educational madelyn from [employer]. Physical exam (Primary Care) Vital Signs: Last Vital Signs Pulse 92 05/15/24 14:32 BP 144/58 H 05/15/24 14:32 Pulse Ox 96 05/15/24 14:32 Oxygen Delivery Method Room Air 05/15/24 14:32 BMI result Body Mass Index 29.7 Tobacco/Smoking Status: Tobacco use Status Tobacco use date assessed 03/13/24 05/15/24 14:33 Patient Tobacco Use Status Former Tobacco user 05/15/24 14:33 Tobacco use type Cigarette 05/15/24 14:33 e-Cigarette/Vaping Use Never Used 05/15/24 14:33 PHQ-9: PHQ-9 Score PHQ-9: Total score 0 05/15/24 14:45 Depression Screening Interpretation: Negative Thrive Assessment: Date of Thrive Assessment Date Thrive assessed 12/27/23 05/15/24 14:33 Const General: alert; No acute distress Eyes Conjunctivae: conjunctivae normal Resp Auscultation: clear to auscultation bilaterally Cardio Rate: regular rate Rhythm: regular rhythm GI Inspection: Yes normal to inspection Extrem Other: Bilateral lower extremity swelling but the left more than the right General: Yes edema Results AMB Urinalysis, Automated UA Leukoctes 500 Karan/uL Last Edit by LINA Coombs on 05/15/24 14:57 UA Nitrite Negative Last Edit by LINA Coombs on 05/15/24 14:57 UA Urobilinogen 0.2 mg/dL Last Edit by Gladis Bosslast A on 05/15/24 14:57 UA Protein 0 mg/dL Last Edit by Gladis Prince, A on 05/15/24 14:57 UA pH 6.0 Last Edit by Gladis Prince, A on 05/15/24 14:57 UA Blood 0 Enrique/uL Last Edit by Gladis Bosslast A on 05/15/24 14:57 UA Specific [place] 1.005 Last Edit by Gladis Prince, A on 05/15/24 14:57 UA Ketone Negative Last Edit by Gladis Prince [facility] on 05/15/24 14:57 UA Bilirubin 0 mg/dL Last Edit by Gladis Prince A on 05/15/24 14:57 UA Glucose 0 mg/dL Last Edit by Gladis Bosslast [facility] on 05/15/24 14:57 Assessment and Plan Assessment & Plan (1) UTI (urinary tract infection): Code(s): N39.0 - Urinary tract infection, site not specified Plan: Patient was treated in the emergency room with cefuroxime continues to have urinary symptoms and so will treat with a different antibiotic. Noted E coli with resistance to Bactrim (2) Right carpal tunnel syndrome: Comment: February 2024This is an abnormal study. 2. There is electrodiagnostic evidence for right moderate-severe median neuropathy at the wrist, consistent with carpal tunnel syndrome. 3. There is no electrodiagnostic evidence for ulnar neuropathy, brachial plexopathy, or cervical radiculopathy. 4. There is no electrodiagnostic evidence for median neuropathy left. Code(s): G56.01 - Carpal tunnel syndrome, right upper limb Plan: Patient is referred to Orthopedics and has a planned procedure. (3) Hypothyroid: Code(s): E03.9 - Hypothyroidism, unspecified Qualifiers: Hypothyroidism type: acquired Qualified Code(s): E03.9 - Hypothyroidism, unspecified Plan: Continue with thyroid medication and will just retest (4) Depression: Code(s): F32.A - Depression, unspecified Plan: Patient is started on Lexapro and referral for outpatient psychiatric clinic. (5) Left leg swelling: Code(s): M79.89 - Other specified soft tissue disorders Plan: Concern of left leg increase in swelling suddenly will do an ultrasound to check for DVT Orders: Orders AMB Urinalysis Automated Today N39.0 - Urinary tract infection, site not specified, Z13.9 - Encounter for screening, unspecified US venous duplex LE LT Today M79.89 - Other specified soft tissue disorders Referrals Psychiatry Outpatient Consultation Service F32.A - Depression, unspecified Medications: New escitalopram oxalate (Lexapro) 5 mg PO DAILY 30 tabs 2RF F32.A - Depression, unspecified ciprofloxacin HCl (Cipro) 250 mg PO BID 10 tabs 0RF N39.0 - Urinary tract infection, site not specified Refilled amlodipine 2.5 mg PO DAILY 90 tabs 2RF F32.A - Depression, unspecified celecoxib (Celebrex) 200 mg PO BID PRN 90 caps 0RF pain M19.049 - Primary osteoarthritis, unspecified hand Coding Level of Care Code Est Pt Level 4 (77484) Complex EM visit Add On G2211 Diagnoses UTI (urinary tract infection) N39.0 Right carpal tunnel syndrome G56.01 Acquired hypothyroidism E03.9 Hypothyroidism type: acquired Depression F32.A Left leg swelling M79.89 Additional Codes PHQ-9 - 81785 - PHQ-9 Billing: ([id number])
== END 2024-05-15 15:13 | disposition home or self-care (01) ==
PROVIDERS: PCP Internal Medicine; Visit Provider Internal Medicine
DX: N39.0 Urinary tract infection, site not specified (principal); G56.01 Carpal tunnel syndrome, right upper limb; E03.9 Hypothyroidism, unspecified; F32.A Depression, unspecified; M79.89 Other specified soft tissue disorders
CPT/HCPCS: 81003; 99214; G2211

== ENCOUNTER 2024-05-15 15:43 | Outpatient (REF) | payer MEDICARE, OTHER, SELFPAY ==
--- NOTE | ~2024-05-15 | US_ITS ---
EXAMINATION: US VENOUS ULTRASOUND WITH DOPPLER LOWER EXTREMITY, LEFT CLINICAL INFORMATION: Swelling left lower extremity COMPARISON: None available. TECHNIQUE: Ultrasound of the deep veins is performed from the hip to the calf with compression sonography and color and pulse Doppler assessment. Spectral analysis with color-flow imaging is performed. FINDINGS: There is normal venous compression and respiratory variation and augmented flow. The visualized common femoral vein, superficial femoral vein, profunda femoral vein, popliteal vein, and the trifurcation region shows no evidence of deep venous thrombosis. There is no significant popliteal fossa cyst. Lymph nodes in the left inguinal region are observed at 16 x 5 x 8 mm and 18 x 8 x 11 mm. If the patient's symptoms persist, followup ultrasound in 5 days 7 days might be of value to exclude proximal propagation from a non-visualized calf vein. US/US venous duplex LE IMPRESSION: No DVT demonstrated in the left lower extremity.
== END 2024-05-15 15:44 | disposition home or self-care (01) ==
LOC: HO.US 15:43
PROVIDERS: PCP Internal Medicine; Visit Provider Internal Medicine
DX: R60.0 Localized edema (principal)
CPT/HCPCS: 93971

== ENCOUNTER 2024-05-28 13:12 | Outpatient (AMB) | payer MEDICARE, OTHER, SELFPAY ==
--- NOTE | 2024-05-28 13:19 | A.OFFPSYCH_ITS ---
Intake 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: consultation Diagnostic Cardiac Sonographer Required: No Allergies amoxicillin Allergy (Intermediate, Verified 05/15/24 14:32) rectal bleeding lisinopril Allergy (Intermediate, Verified 05/15/24 14:32) cough Medication List - Last Reconciled 05/28/24 by Kaye Scott APRN acetaminophen 650 mg (2 x 325 mg) PO Q6H PRN 30 days amlodipine 2.5 mg PO DAILY atorvastatin 80 mg PO BEDTIME celecoxib (Celebrex) 200 mg PO BID PRN cholecalciferol (vitamin D3) 25 mcg PO BEDTIME ciprofloxacin HCl (Cipro) 250 mg PO BID cyanocobalamin (vitamin B-12) 1,000 mcg PO QPM docusate sodium 100 mg PO BID 14 days escitalopram oxalate (Lexapro) 5 mg PO DAILY fexofenadine (Flavia Allergy) 180 mg PO DAILY fluticasone propionate 50 mcg/actuation 1 spray intranasal DAILY levothyroxine 112 mcg PO DAILY@0600 meclizine 25 mg PO TID PRN 7 days propylene glycol 0.6% (Systane Balance) 1 drp ophthalmic (eye) BEDTIME HPI- Psychiatric Chief Complaint: consultation HPI Narrative: pt referred by PCP for evaluation of depression. Pt reports grief since her 3 years ago after 2 years of being very ill; her best friend moved away and then she lost 3 siblings in past 2 years; most recent being her youngest sister whom she helped raise; she feels bereft; she misses her; she feels ishaan lonely now that all her siblings are gone. she has a very supportive family with 4 children and many grandchildren and neices and nephews whom she appreciates; she states she prefers quiet activities and prefers to stay home which worries her family; she does admit she is lonely. she is reluctant to go to [employer] [facility] or out with her friend Bettie who likes group activities; she reports she thinks she feels better since starting the lexapro; she is worried about taking any more medication as she already struggles with vertigo. she reports she sleeps well and eats well; she reports she idi not know she has UTI recently because she did not have the usual signs of pain upon urination or frequency or flank pain; she only realized she had a fever and she thought s she had the flu. she denies suicidal ideation; she reports the visit from her niece who is staying with her is brightening her mood. she is used to taking care of herself and other people and finds it difficult to ask for help. Past Psychiatric History: no past psych hx Subjective Subjective Subjective Medication Compliance: Yes Side effects from medications: No Review of Systems Medical Review of Systems: unchanged Mental Status Exam Mental Status Exam Patient Appearance: Well Grooomed and Appropriate Patient Orientation: Person, Place and Time Level of Consciousness: Awake Patient Behavior: Appropriate Mood Description: Anxious and Sad Affect Description: Anxious and Sad Patient Cognition Impaired: No Ability to Follow Directions: Good Speech Pattern: Clear Hallucinations: None Delusions: Not Present Thought Process: Intact Thought Content: positive for Intact Judgement: Good Assessment and Plan Assessment & Plan (1) Dysthymia (or depressive neurosis): Status: Acute Code(s): F34.1 - Dysthymic disorder (2) Bereavement reaction: Status: Acute Code(s): F43.20 - Adjustment disorder, unspecified; Z63.4 - Disappearance and of family member Plan continue lexapro 5 mg daily recommend pt meet with therapist to process grief/ life stage issues recommend 1-2 outings a month to senior center or with friend bettie recommend family member take turn spending one on one time with pt and encourage her to talk about her family all of this discussed with patient and grandson Erick HCP thank you for this consult; am signing off now but would be happy to see patient in future if needed Counseling and coordination of Care Pt. Self Management counseling: Maintenance-social rhythm, Behavior activation, Cognitive restructuring, General coping skills and Greif counseling Medication management counseling: Effectiveness, Side effects, Dosing range, Duration, Drug interaction and Adherence Diagnosis and Prognosis Counseling: Accuracy of diagnosis, Prognosis over time, Impact of diagnosis on life functions, Impact of family relationship, Problematic behaviors secondary to diagnosis and Adequacy of current interventions Details: I spent 75 minutes reviewing the record, seeing the patient and documenting in the medical record. Counseling provided to the patient/caregiver as outlined below. Addressed patient/caregiver concerns regarding current medication regime including effective adherence. Addressed patient/caregiver concerns regarding diagnosis and prognosis including accuracy of diagnosis, prognosis over time, impact of diagnosis. Addressed patient/caregiver concerns regarding impact of recent stressors. [facility] Medical History (Updated 05/28/24 @ 17:29 by Kaye Scott APRN) Numbness and tingling in left hand Bilateral hand numbness Impaired vision Osteoarthritis of right knee Tinnitus of both ears Dizziness B12 deficiency Neck pain Overweight (BMI 25.0-29.9) Cataract, left eye Cataract Cough Hypercholesterolemia Anxiety Peripheral vascular disease Osteopenia Hypothyroid Hypertension Surgical History History of right cataract surgery History of left knee replacement History of lumpectomy of left breast History of colonoscopy History of hysterectomy History of thyroidectomy Family History Father CAD (coronary artery disease) CVD (cardiovascular disease) Mother Hypertension Stroke Aneurysm Family/Other Hyperlipidemia Social History Household Members: None Housing: Apartment Are you a primary direct care specialist to a significant other at home: No Do you presently have visiting nurse or other home services: Yes Alcohol intake: never Patient Tobacco Use Status: Former Tobacco user Tobacco use type: Cigarette Years Smoked: 10 e-Cigarette/Vaping Use: Never Used Second Hand Smoke Exposure: No Advance Directives Date on File: 06/06/23 service: No Current occupational status: retired Cognitive needs: No Hearing needs: No Vision needs: Yes Social History: lives alone in [place] [place]- her grandson Erick lives above her and is HCP; pt lost 3 yrs ago; they had 4 children all of whom are alive; 2 sons live nearby; 2 daughters live cross [place]. she has many grandchildren, great grandchildren and nieces and nephews. She has one friend Bettie Substance History: no Trauma History: loss of close family Coding Level of Care Code Psych Diag Eval w/Med (08817) Diagnoses Dysthymia (or depressive neurosis) F34.1 Bereavement reaction F43.20; Z63.4
== END 2024-05-28 14:50 | disposition home or self-care (01) ==
LOC: HO.HOP 13:12
PROVIDERS: PCP Internal Medicine; Visit Provider Clinical Nurse Specialist Psychiatric/Mental Health
DX: F34.1 Dysthymic disorder (principal); F43.20 Adjustment disorder, unspecified; Z63.4 Disappearance and death of family member
CPT/HCPCS: 90792

== ENCOUNTER → 2024-05-28 13:12 | Outpatient (BNVA) | payer MEDICARE, OTHER, SELFPAY | PROVIDERS: PCP Internal Medicine; Visit Provider Clinical Nurse Specialist Psychiatric/Mental Health | DX: F34.1 Dysthymic disorder (principal); F43.20 Adjustment disorder, unspecified; Z63.4 Disappearance and death of family member | CPT/HCPCS: 90792 ==

== ENCOUNTER 2024-06-05 13:30 | Outpatient (RCR) | payer MEDICARE, OTHER, SELFPAY ==
--- NOTE | 2024-05-10 15:54 | MHC.OT.EP ---
[address] [phone] Occupational Therapy Plan of Care Patient Name: Katya Mireles Date of Evaluation: 05/10/24 Diagnosis: Right CTS, Right hand stiffness Pain Location: Mostly pain free at rest Electricity-shock with movement Pain Score: 5 Pain Scale Used: Numeric (0 - 10) Aggravating Factors: Opening containers Alleviating Factors: Resting hand/arm Assessment: 83 yo female with history of arthritis, she had been seeing chiropractor for muscle and joint stiffness, reports he did a cervical mobilization with resulting pain, edema and tingling. Now with intermittent tingling in digits and difficulty w/ heavier tasks. Nerve conduction indicates carpal tunnel syndrome. On assessment today, she reports primary limitations are with heavier tasks and opening containers. Edema appears to be resolved and although she has limited digit flexion, she reports she has stiffness at baseline, particularly in long finger after injury 20 years ago. Gross grasp is very weak, but I anticipate with improvements to range and with upcoming carpal tunnel release (July 2024) she will have strength gains for increased use of right hand for daily activities. Frequency and Duration: The patient will be seen 1x/wk for 3 weeks Short Term Goals: Ind w/ use of heat and cold modalities as preference for joint pain and movement Good follow through w/ guided exercises Full active tip-palm (possibly w/ exception of long finger) for functional grasp Gross grasp >15lb for light use of right hand [employer] Specialist Goals: Same as above Treatment Plan: Therapeutic Exercise Therapeutic Activity Home Exercise Program Patient Education Edema Control MHP Cold Packs Soft Tissue Mobilization Possible nighttime orthosis Electronically Signed By: Vee Houston OTR/Tabitha CHT Please Sign and return to therapist. Thank you once again for your referral.
--- NOTE | 2024-06-05 15:12 | MHC.OT.IDC ---
[address] [phone] F: [phone] Occupational Therapy Inpatient Daily Note Patient Name: Katya Mireles Discharge Date: Assessment: Discharge Reason: Discharge Recommendations: Comments: Electronically Signed By: Ritika Castillo OTR/L, CLT Reviewed/agree with student documentation: N/A Therapist:
== END 2024-06-05 15:13 | disposition home or self-care (01) ==
LOC: HO.OT 13:30
PROVIDERS: PCP Internal Medicine; Visit Provider Orthopaedic Surgery
DX: G56.01 Carpal tunnel syndrome, right upper limb (principal); M25.641 Stiffness of right hand, not elsewhere classified
CPT/HCPCS: 97035; 97110; 97140; 97166

== ENCOUNTER 2024-06-28 07:25 | Day surgery (SDC) | payer MEDICARE, OTHER, SELFPAY ==
--- NOTE | 2024-06-28 07:55 | MHC.SHP ---
Pre-Procedural Eval Section A - 24 Hr Update-Section A only Date of Service: 06/28/24 The patient is an INPATIENT: No The patient has been examined within 24 hours of the surgical procedure. The History & Physical has been completed within 30 days and I have reviewed it.: Yes Section B - Complete if H&P > 30 days Chief Complaint: Carpal tunnel syndrome, right upper limb Allergies: Allergies Allergy/AdvReac Type Severity Reaction Status Date / Time amoxicillin Allergy Intermediate rectal Verified 05/15/24 14:32 bleeding lisinopril Allergy Intermediate cough Verified 05/15/24 14:32 Exam Exam Comment: Right carpal tunnel syndrome Plan Diagnosis/Plan: Unchanged I have reviewed the history and physical and performed a pertinent physical examination on my patient. No changes have occurred unless specified. Time Spent With Patient Time: Total time managing care of this patient today ____ minutes.
[2024-06-28 07:56] VITALS: BP 126/58; PULSE 84; RESP 18; TEMP 36.7; O2SAT 97
--- NOTE | 2024-06-28 07:56 | P.OP_ITS ---
Operative Note Operative Note Date of Service: 06/28/24 Narrative: Preop diagnosis: 1. Right Carpal tunnel syndrome Postop diagnosis: same Procedure: 1. Right Carpal tunnel release Surgeon: Tammy Tan MD Sole Conditioner: Dinesh FELIX Anesthesia: local block using 1% lidocaine with epinephrine Findings: Thickened transverse carpal ligament. EBL: Less than 5 mL Specimens: None Complications: None Disposition: Brought to recovery room in stable condition Plan: Follow-up for 10-14 days for wound check and suture removal Indications: The patient is 83 years old, with right carpal tunnel syndrome that has been unresponsive to nonoperative management. The risks and benefits of operative treatment including but not limited to risk of damage to blood vessels, nerves, tendons, infection, persistent pain, persistent symptoms, or possible need for additional surgery were discussed with the patient and the patient wishes to proceed with surgery. Procedure: Once consent was obtained a local block was performed using a combination of 1% lidocaine with epinephrine. The patient was then brought back to the operating suite and placed on the operative table in supine position. The right upper extremity was prepped and draped in a standard surgical fashion. Once assured that we had a good block, a 2.0 cm longitudinal incision was made centered over the carpal tunnel. The incision was made through the skin to the subcutaneous tissues using a #15 blade. Dissection was made down to the level of the transverse carpal ligament with care being taken to protect the palmar cutaneous nerve. Once the transverse carpal ligament was clearly visualized, a longitudinal incision was made in the transverse carpal ligament 1st using a #15 blade, then using tenotomy scissors under direct visualization. Care was taken to look for and protect the motor branch of the median nerve when seen in this area. Once satisfied with our carpal tunnel release the wound was copiously irrigated with normal saline and hemostasis was obtained with a brief period of local pressure. The skin edges were reapproximated with some 5.0 nylon suture material and a sterile dressing was applied. The patient appears to have tolerated the procedure well and with no complications. All digits were well vascularized at the conclusion of the case.
[2024-06-28 10:34] VITALS: BP 150/65; PULSE 82; RESP 18; O2SAT 100
== END 2024-06-28 10:35 | disposition home or self-care (01) ==
PROVIDERS: PCP Internal Medicine; Visit Provider Orthopaedic Surgery
PROC: (CPT 64721; principal; 2024-06-28 09:30)
DX: G56.01 Carpal tunnel syndrome, right upper limb (principal); R20.0 Anesthesia of skin; R20.2 Paresthesia of skin; M25.641 Stiffness of right hand, not elsewhere classified; M19.041 Primary osteoarthritis, right hand; I10 Essential (primary) hypertension; I73.9 Peripheral vascular disease, unspecified; R42 Dizziness and giddiness; Z79.899 Other long term (current) drug therapy; Z88.1 Allergy status to other antibiotic agents; Z88.8 Allergy status to other drugs, medicaments and biological substances; Z98.890 Other specified postprocedural states; Z87.891 Personal history of nicotine dependence
CPT/HCPCS: 64721; J0171

== ENCOUNTER → 2024-06-28 07:25 | Outpatient (BNV) | payer MEDICARE, OTHER, SELFPAY | PROVIDERS: PCP Internal Medicine; Visit Provider Orthopaedic Surgery | DX: G56.01 Carpal tunnel syndrome, right upper limb (principal) | CPT/HCPCS: 64721 ==

== ENCOUNTER 2024-07-11 12:46 | Outpatient (AMB) | payer MEDICARE, OTHER, SELFPAY ==
--- NOTE | 2024-07-11 13:02 | A.OFFVIS_ITS ---
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: PO RT CTR 06/28/24 AR Intake Note: Katya is a 84 year old female who presents to the office today for a post-op RT CTR 06/28/24 AR. Patient reports no numbness or tingling. She accidentally dug her nail under her incision which accidentally lifted it, since then she has had it covered. Allergies amoxicillin Allergy (Intermediate, Verified 07/11/24 13:03) rectal bleeding lisinopril Allergy (Intermediate, Verified 07/11/24 13:03) cough HPI HPI PO RT CTR 06/28/24 AR: Details: Patient is an 84-year-old female who presents for postoperative evaluation statu s post right carpal tunnel release, DOS 06/28/2024. The patient reports that she is feeling very well, and that completely normal sensation has returned to the right hand since DOS. The patient does report that she had a fall onto the right hand in the postoperative period, and states that 1 of the sutures in like it ?popped open? but that she had no increased pain, separation of the wound, erythema, edema, or drainage. No other acute complaints or concerns at this time. Of note, the patient states that the nerve conduction study previously done did reveal carpal tunnel syndrome on the left, but she is not interested in any further surgical intervention on the left side at this time. [facility] Medical History Numbness and tingling in left hand Bilateral hand numbness Impaired vision Osteoarthritis of right knee Tinnitus of both ears Dizziness B12 deficiency Neck pain Overweight (BMI 25.0-29.9) Cataract, left eye Cataract Cough Hypercholesterolemia Anxiety Peripheral vascular disease Osteopenia Hypothyroid Hypertension Surgical History History of right cataract surgery History of left knee replacement History of lumpectomy of left breast History of colonoscopy History of hysterectomy History of thyroidectomy Family History Father CAD (coronary artery disease) CVD (cardiovascular disease) Mother Hypertension Stroke Aneurysm Family/Other Hyperlipidemia Social History Household Members: None Household Members Other:: grandson lives upstairs Housing: Apartment Are you a primary rn palliative care to a significant other at home: No Do you presently have visiting nurse or other home services: No Alcohol intake: never Patient Tobacco Use Status: Former Tobacco user Tobacco use type: Cigarette Years Smoked: 10 e-Cigarette/Vaping Use: Never Used Second Hand Smoke Exposure: No Advance Directives Date on File: 06/06/23 service: No Current occupational status: retired Cognitive needs: No Hearing needs: No Vision needs: Yes Physical Exam Extrem Other: Neuro: Normal sensation of the tips of all digits of the right hand in the office today No thenar or intrinsic wasting. Vascular: Capillary refill brisk. ROM: Patient can make a fist and extend all their digits. Skin: Well-healing incision site noted in the volar aspect of the right wrist. No discharge No evidence of infection General: No ecchymosis. No erythema or evidence of infection. Assessment & Plan Assessment & Plan (1) Right carpal tunnel syndrome: Comment: February 2024This is an abnormal study. 2. There is electrodiagnostic evidence for right moderate-severe median neuropathy at the wrist, consistent with carpal tunnel syndrome. 3. There is no electrodiagnostic evidence for ulnar neuropathy, brachial plexopathy, or cervical radiculopathy. 4. There is no electrodiagnostic evidence for median neuropathy left. Code(s): G56.01 - Carpal tunnel syndrome, right upper limb Category: Medical Plan 1. Right carpal tunnel syndrome status post carpal tunnel release DOS 06/28/2024 Patient is recovering well postoperatively Patient is educated about typical recovery course Sutures removed in the office today, Steri-Strips applied Patient is educated about the worrisome signs and symptoms of infection, such as edema, erythema, increasing pain at, and is told that she should return to the office if she experiences any of these symptoms. Patient is informed that she does not require any acute follow-up at this time, and due to her good range of motion, she does not require occupational therapy either Patient is amenable to this plan Patient will follow-up as needed with any acute concerns Coding Level of Care Code Global (65147) Diagnoses Right carpal tunnel syndrome G56.01
== END 2024-07-11 13:31 | disposition home or self-care (01) ==
PROVIDERS: PCP Internal Medicine
DX: G56.01 Carpal tunnel syndrome, right upper limb (principal)
CPT/HCPCS: 99024

== ENCOUNTER → 2024-07-11 12:46 | Outpatient (BNVA) | payer MEDICARE, OTHER, SELFPAY | PROVIDERS: PCP Internal Medicine | DX: Z09 Encounter for follow-up examination after completed treatment for conditions other than malignant neoplasm (principal); Z91.81 History of falling; Z86.69 Personal history of other diseases of the nervous system and sense organs; Z98.890 Other specified postprocedural states | CPT/HCPCS: 99212 ==

== ENCOUNTER 2024-07-19 11:21 | Outpatient (AMB) | payer MEDICARE, OTHER, SELFPAY ==
--- NOTE | 2024-07-19 11:26 | A.OFFVIS_ITS ---
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: OV-RT TKA 05/31/23 NE Intake Note: Katya is an 83 year old female who presents today for a follow up appointment s/p RT TKA 05/31/23. Patient reports that she is doing well with no concerns. She has some creaking of the knee but understands that this can be normal Allergies amoxicillin Allergy (Intermediate, Verified 07/11/24 13:03) rectal bleeding lisinopril Allergy (Intermediate, Verified 07/11/24 13:03) cough HPI HPI OV-RT TKA 05/31/23 NE: Details: Katya is an 83 year old female who presents today for a follow up appointment s/p RT TKA 05/31/23. Patient reports that she is doing well with no concerns. She has some creaking of the knee but understands that this can be normal [facility] Medical History Numbness and tingling in left hand Bilateral hand numbness Impaired vision Osteoarthritis of right knee Tinnitus of both ears Dizziness B12 deficiency Neck pain Overweight (BMI 25.0-29.9) Cataract, left eye Cataract Cough Hypercholesterolemia Anxiety Peripheral vascular disease Osteopenia Hypothyroid Hypertension Surgical History History of right cataract surgery History of left knee replacement History of lumpectomy of left breast History of colonoscopy History of hysterectomy History of thyroidectomy Family History Father CAD (coronary artery disease) CVD (cardiovascular disease) Mother Hypertension Stroke Aneurysm Family/Other Hyperlipidemia Social History Household Members: None Household Members Other:: grandson lives upstairs Housing: Apartment Are you a primary child care center administrator to a significant other at home: No Do you presently have visiting nurse or other home services: No Alcohol intake: never Patient Tobacco Use Status: Former Tobacco user Tobacco use type: Cigarette Years Smoked: 10 e-Cigarette/Vaping Use: Never Used Second Hand Smoke Exposure: No Advance Directives Date on File: 06/06/23 service: No Current occupational status: retired Cognitive needs: No Hearing needs: No Vision needs: Yes Physical Exam Extrem Other: Incision clean dry and intact. Full range of motion. Normal gait. Assessment & Plan Assessment & Plan (1) Status post total knee replacement, right: Comment: May 2023 Code(s): Z96.651 - Presence of right artificial knee joint Category: Surgical Plan: Status post right knee replacement doing well. Continue activity as tolerated. Coding Level of Care Code Est Pt Level 3 (58296) Diagnoses Status post total knee replacement, right Z96.651
== END 2024-07-19 12:02 | disposition home or self-care (01) ==
PROVIDERS: PCP Internal Medicine; Visit Provider Orthopaedic Surgery
DX: Z47.1 Aftercare following joint replacement surgery (principal); Z96.651 Presence of right artificial knee joint
CPT/HCPCS: 99212

== ENCOUNTER → 2024-07-19 11:21 | Outpatient (BNVA) | payer MEDICARE, OTHER, SELFPAY | PROVIDERS: PCP Internal Medicine; Visit Provider Orthopaedic Surgery | DX: Z47.1 Aftercare following joint replacement surgery (principal); Z96.651 Presence of right artificial knee joint | CPT/HCPCS: 99212 ==

== ENCOUNTER 2024-09-19 12:51 | Outpatient (AMB) | payer MEDICARE, OTHER, SELFPAY ==
--- NOTE | 2024-09-19 13:00 | A.OFFPC_ITS ---
Vital Signs 09/19/24 13:01 09/19/24 13:18 Height 5 ft Weight 158 lb BMI 30.9 BP 162/64 H 158/64 H Blood Pressure Location Lt brachial Lt brachial Position Sitting Sitting Pulse 81 Pulse Source Pulse Oximeter Pulse Oximetry (%) 98 Oxygen Delivery Method Room Air 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: Depression, UTI, Ear Cleaning Allergies amoxicillin Allergy (Intermediate, Verified 09/19/24 13:08) rectal bleeding lisinopril Allergy (Intermediate, Verified 09/19/24 13:08) cough Medication List - Last Reconciled 09/19/24 by Eloina Griffiths PA-C acetaminophen 650 mg (2 x 325 mg) PO Q6H PRN 30 days amlodipine 2.5 mg PO DAILY atorvastatin 80 mg PO BEDTIME celecoxib (Celebrex) 200 mg PO BID PRN cholecalciferol (vitamin D3) 25 mcg PO BEDTIME docusate sodium 100 mg PO BID 14 days escitalopram oxalate (Lexapro) 5 mg PO DAILY fexofenadine (Flavia Allergy) 180 mg PO DAILY fluticasone propionate 50 mcg/actuation 1 spray intranasal DAILY levothyroxine 112 mcg PO DAILY@0600 meclizine 25 mg PO TID PRN 7 days oxycodone-acetaminophen 5-325 mg 1 tab PO Q6H PRN propylene glycol 0.6% (Systane Balance) 1 drp ophthalmic (eye) BEDTIME Tobacco use date assessed: 03/13/24 Fall risk assessment: No Falls in past year Last assessed Fall Risk: 09/19/24 Dental Screening Dental Screen Date: 09/20/23 HPI Depression, UTI, Ear Cleaning HPI Details 84-year-old female with a history of hyp ertension, hypothyroidism peripheral vascular disease hypercholesterolemia osteoporosis lumbar degenerative disc disease osteoarthritis coming in for follow-up patient was l ast seen April [address] Sharpe and treated for UTI at that time.? In review of the notes, patient was seen by [facility] orthopedic surgeon 07/19/2024 s/p total knee replacement May 2023 doing well.? Also seen by orthopedic surgeons 07/11/2024 after right carpal tunnel release doing well postoperatively and given restrictions.? Patient was seen by [facility] outpatient psych continued on Lexapro 5 mg and recommended counselor. Patient states she is feeling much better regarding her depression states she does not need counselor at this time. Denies any UTI symptoms at this time. Blood pressure has been within normal limits at home and she monitors her BP weekly. ON LICENSE OF [facility] Medical History Numbness and tingling in left hand Bilateral hand numbness Impaired vision Osteoarthritis of right knee Tinnitus of both ears Dizziness B12 deficiency Neck pain Overweight (BMI 25.0-29.9) Cataract, left eye Cataract Cough Hypercholesterolemia Anxiety Peripheral vascular disease Osteopenia Hypothyroid Hypertension Surgical History History of right cataract surgery History of left knee replacement History of lumpectomy of left breast History of colonoscopy History of hysterectomy History of thyroidectomy Family History Father CAD (coronary artery disease) CVD (cardiovascular disease) Mother Hypertension Stroke Aneurysm Family/Other Hyperlipidemia Social History Household Members: None Household Members Other:: grandson lives upstairs Housing: Apartment Are you a primary regular senior care provider to a significant other at home: No Do you presently have visiting nurse or other home services: No Alcohol intake: never Patient Tobacco Use Status: Former Tobacco user Tobacco use type: Cigarette Years Smoked: 10 e-Cigarette/Vaping Use: Never Used Second Hand Smoke Exposure: No Advance Directives Date on File: 06/06/23 service: No Current occupational status: retired Cognitive needs: No Hearing needs: No Vision needs: Yes Questionnaire Thrive Questionnaire Date Thrive assessed: 12/27/23 AUDIT C Alcohol Use Questionnaire (AUDIT-C) 1. How often do you have a drink containing alcohol?: Never 2. How many drinks containing alcohol do you have on a typical day when you are drinking?: 1 or 2 3. How often do you have six or more drinks on one occasion?: Never Total Score: 0 Score Reviewed/Action Taken: No MISAEL-7 AMB Questionnaire MISAEL-7 Date MISAEL - 7 assessed: 12/27/23 Source: Developed by Drs. Darren Noel, Minnie Nevarez, Dago Mcmahan and colleagues, with an educational madelyn from [employer]. Review of Systems Const Denies body aches, Denies chills, Denies fever(s), Denies headache(s) and Denies poor appetite Eyes Reports no additional complaints ENT Details: Decreased hearing Denies dizziness and Denies headache(s) Card Denies chest pain, Denies lightheadedness and Denies dyspnea Resp Denies cough and Denies dyspnea GI Denies abdominal pain, Reports constipation, Denies diarrhea, Denies nausea and Denies vomiting Reports no additional complaints Musc Reports no additional complaints and Denies abnormal gait Skin/Breast Reports system reviewed and no additional complaints, except as documented Neuro Denies abnormal gait, Denies dizziness and Denies headache(s) Psych Reports no additional complaints Physical exam (Primary Care) Vital Signs: Oxygen Delivery Method Room Air 09/19/24 13:01 BMI result Body Mass Index 30.9 Tobacco/Smoking Status: Tobacco use Status Tobacco use date assessed 03/13/24 09/19/24 13:01 Patient Tobacco Use Status Former Tobacco user 09/19/24 13:01 Tobacco use type Cigarette 09/19/24 13:01 e-Cigarette/Vaping Use Never Used 09/19/24 13:01 Thrive Assessment: Date of Thrive Assessment Date Thrive assessed 12/27/23 09/19/24 13:01 Const General: cooperative, healthy appearing, comfortable and no acute distress Orientation/consciousness: patient oriented x3 HENMT Head: Yes normocephalic Ears: hearing grossly normal bilaterally, TM's normal bilaterally and Abnormal EAC present excessive cerumen on the left General nose exam: Normal external nose present Eyes General: appearance normal, both eyes and all related structures Conjunctivae: conjunctivae normal Neck Neck: Yes full ROM and Yes no lymphadenopathy Resp Effort & Inspection: normal respiratory effort Auscultation: clear to auscultation bilaterally, no crackles, no rales, no rhonchi and no wheezes Cardio Rate: regular rate Rhythm: regular rhythm Skin General skin exam: no rashes or lesions noted Neuro General: patient oriented x3 Gait exam (Neuro): Normal gait present Extrem General: Yes normal to inspection, Yes full ROM and No edema Psych Affect: normal affect Attitude: cooperative Insight: Good insight present (Psych) Judgement: Good judgement present (Psych) Office Procedures Cerumen Removal From which ear canal was the cerumen removed: left Removal: irrigation Notes: patient tolerated procedure well, no complications and ear canal clear [id number] Irrigation/Lavage Results AMB Urinalysis Dipstick UR Leukocytes Negative Last Edit by LINA Coombs on 09/19/24 13:15 UR Nitrite Negative Last Edit by LINA Coombs on 09/19/24 13:15 UR Urobilinogen 2 Last Edit by Gladis Prince RMA on 09/19/24 13:15 UR Protein Negative Last Edit by TYSON CoombsA on 09/19/24 13:15 UR Ph 6.0 Last Edit by Gladis Prince A on 09/19/24 13:15 UR Blood Negative Last Edit by Gladis Prince A on 09/19/24 13:15 UR Specific [place] 1.015 Last Edit by LINA Coombs on 09/19/24 13:15 UR Ketone Negative Last Edit by TSYON CoombsA on 09/19/24 13:15 UR Bilirubin Negative Last Edit by LINA Coombs on 09/19/24 13:15 UR Glucose Negative Last Edit by Gladis Prince Raghu on 09/19/24 13:15 Coding Level of Care Code Est Pt Level 3 (06260) Diagnoses Depression F32.A UTI (urinary tract infection) N39.0 Obesity (BMI 30.0-34.9) E66.9 Hypercholesterolemia E78.00 Acquired hypothyroidism E03.9 Hypothyroidism type: acquired Primary hypertension I10 Hypertension type: primary hypertension Hearing deficit H91.90 CPT Codes Office Procedure - CPT: 47478-[id number] Irrigation/Lavage ([id number]) Assessment & Plan Assessment & Plan (1) Depression: Code(s): F32.A - Depression, unspecified Category: Medical Plan: Patient states she is doing well on the Lexapro and is declining counseling at this time. (2) UTI (urinary tract infection): Code(s): N39.0 - Urinary tract infection, site not specified Category: Medical Plan: Symptoms have resolved at this time patient is feeling well. Continue to monitor for symptoms. (3) Obesity (BMI 30.0-34.9): Code(s): E66.9 - Obesity, unspecified Category: Medical Plan: Healthy diet and regular exercise is encouraged. (4) Hypercholesterolemia: Code(s): E78.00 - Pure hypercholesterolemia, unspecified Category: Medical Plan: Avoid foods that are high in cholesterol such as red meat, fried foods, eggs and baked goods. Triglyceride goal of less than 150 and LDL goal of less than 100. Continue on atorvastatin 80 mg (5) Hypothyroid: Code(s): E03.9 - Hypothyroidism, unspecified Category: Medical Qualifiers: Hypothyroidism type: acquired Qualified Code(s): E03.9 - Hypothyroidism, unspecified Plan: TSH elevated on last lab work ordered for updated TSH and T4 levels. Continue on levothyroxine (6) Hypertension: Code(s): I10 - Essential (primary) hypertension Category: Medical Qualifiers: Hypertension type: primary hypertension Qualified Code(s): I10 - Essential (primary) hypertension Plan: Continue on current blood pressure medication. Avoid salt intake and encourage healthy diet and regular exercise. Patient's blood pressure elevated in the office today states at home values are within normal limits advised to keep log of blood pressures and bring to next appointment. (7) Hearing deficit: Code(s): H91.90 - Unspecified hearing loss, unspecified ear Category: Medical Plan: Left ear was cleaned using irrigation and bilateral ear canals are clear at this time. Placed order for [facility] speech and hearing. Plan This note was constructed using voice recognition software. While every effort has been made to ensure accuracy and bottle booth attendant, still areas may have been included sometimes these areas may affect the content or meeting of the given symptoms. Total time spent caring for the patient today was 30 minutes. This includes time spent before the visit reviewing the chart, time spent during the visit, and time spent after the visit and documentation. Orders: Orders Comprehensive Met. Panel Today Z00.00 - Encounter for general adult medical examination without abnormal findings Vitamin B12 and Folate Today Z00.00 - Encounter for general adult medical examination without abnormal findings Vitamin D 25-OH (D2 and D3) Today Z00.00 - Encounter for general adult medical examination without abnormal findings AMB Urinalysis Dipstick Today N39.0 - Urinary tract infection, site not specified Referrals Speech and Hearing Referral H91.90 - Unspecified hearing loss, unspecified ear
[2024-09-19 13:01] VITALS: BP 162/64; PULSE 81; O2SAT 98; BMI 30.9
[2024-09-19 13:18] VITALS: BP 158/64
== END 2024-09-19 13:38 | disposition home or self-care (01) ==
PROVIDERS: PCP Internal Medicine
DX: E78.00 Pure hypercholesterolemia, unspecified (principal); F32.A Depression, unspecified; N39.0 Urinary tract infection, site not specified; H61.22 Impacted cerumen, left ear; E66.9 Obesity, unspecified; E03.9 Hypothyroidism, unspecified; I10 Essential (primary) hypertension; H91.92 Unspecified hearing loss, left ear

== ENCOUNTER → 2024-09-19 12:51 | Outpatient (BNVA) | payer MEDICARE, OTHER, SELFPAY | PROVIDERS: PCP Internal Medicine | DX: F32.A Depression, unspecified (principal); N39.0 Urinary tract infection, site not specified; E66.9 Obesity, unspecified; E78.00 Pure hypercholesterolemia, unspecified; E03.8 Other specified hypothyroidism; I10 Essential (primary) hypertension; H61.22 Impacted cerumen, left ear | CPT/HCPCS: 69209; 81002; 99212 ==

== ENCOUNTER 2024-10-16 14:07 | Outpatient (REF) | payer MEDICARE, OTHER, SELFPAY | END 2024-10-16 14:08 | disposition home or self-care (01) | LOC: HO.SH 14:07 | DX: Z01.118 Encounter for examination of ears and hearing with other abnormal findings (principal); H91.90 Unspecified hearing loss, unspecified ear | CPT/HCPCS: 92557; 92567 ==

== ENCOUNTER 2025-01-21 09:17 | Outpatient (REF) | payer MEDICARE, OTHER, SELFPAY ==
[2025-01-21 09:31] LABS: MANUAL DIFF FLAG NO
[2025-01-21 10:18] LABS: Basophils Percent Auto 0.9 % (0-2); Eosinophils Absolute Auto 0.1 X10*3/uL (0.0-0.4); Eosinophils Percent Auto 2.4 % (0-4); Hematocrit 37.6 % (37.0-47.0); Hemoglobin 12.3 g/dl (12.0-16.0); Imm Gran Abs Auto 0.02 X10*3/uL (0.00-0.03); Imm Gran Pct Auto 0.4 % (0.0-0.4); Immature Retic Fraction 13.4 % (3.0-15.9); Lymphocytes Absolute Auto 1.6 X10*3/uL (1.2-4.9); Lymphocytes Percent Auto 35.3 % (20-40); Mean Corpuscular HGB Conc 32.7 g/dl (31.0-35.0); Mean Corpuscular Hemoglobin 32.6 pg (27.0-33.0); Mean Corpuscular Volume 99.7 fL (80.0-98.0); Mean Platelet Volume 10.1 fL (9.4-12.3); Monocytes Absolute Auto 0.4 X10*3/uL (0.1-1.2); Monocytes Percent Auto 7.5 % (2-11); Neutrophils Absolute Auto 2.5 x10*3/uL (2.0-8.3); Neutrophils Percent Auto 53.5 % (45-73); Platelet Count 219 X10*3/uL (160-400); Red Blood Count 3.77 X10*6/uL (4.20-5.50); Red Cell Distribution Width 12.7 % (11.0-16.0); Retic HGB Equivalent 37.2 pg (30.0-35.0); Reticulocyte Percent 1.4 % (0.5-1.8); Reticulocytes Absolute 0.053 X10*6/uL (0.026-0.095); White Blood Count 4.6 X10*3/uL (4.8-10.8)
[2025-01-21 11:05] LABS: Alanine Aminotransferase 22 U/L (0-31); Albumin Level 4.4 g/dL (3.5-5.0); Alkaline Phosphatase 80 U/L (39-117); Anion Gap 11 (12-20); Aspartate Amino Transferase 37 U/L (5-31); Bilirubin Total 0.6 mg/dL (0.0-1.0); Blood Urea Nitrogen 18 mg/dL (9-16); Calcium 9.6 mg/dL (8.4-10.2); Carbon Dioxide 30 mmol/L (22-29); Chloride 103 mmol/L (96-108); Cholesterol 189 mg/dL (<200); Estimated Glomerular Filt Rate > 60; Glucose Random 95 mg/dL (60-115); HDL Cholesterol 72 mg/dL (>40); Iron 78 mcg/dL (30-160); LDL Cholesterol Calculated 104 mg/dL (<100); Percent Iron Saturation 27 % (15-50); Potassium 4.3 mmol/L (3.3-5.1); Sodium 140 mmol/L (135-145); Total Iron Binding Capacity 286 mcg/dL (228-428); Total Protein 7.6 g/dL (6.5-8.0); Triglycerides 66 mg/dL (<150); Unsaturated Iron Binding 208 ug/dL
[2025-01-21 11:15] LABS: Ferritin 275 ng/mL (10-250); Free T4 (Free Thyroxine) 1.11 ng/dL (0.71-1.85); Vitamin D 25-OH Total 69.6 ng/mL (>30)
[2025-01-21 11:19] LABS: Folate 13.9 ng/mL (> or = 4.0); Vitamin B12 544 pg/mL (200-900)
[2025-01-25 16:03] LABS: Vitamin D 25-OH, D2 <4 ng/mL; Vitamin D 25-OH, D3 62 ng/mL; Vitamin D 25-OH, Total 62 ng/mL (30-100)
== END 2025-01-21 09:18 | disposition home or self-care (01) ==
LOC: HO.LAB 09:17
PROVIDERS: PCP Internal Medicine; Visit Provider Internal Medicine
DX: Z00.00 Encounter for general adult medical examination without abnormal findings (principal); E03.9 Hypothyroidism, unspecified; E78.00 Pure hypercholesterolemia, unspecified
CPT/HCPCS: 36415; 80053; 80061; 82306; 82607; 82728; 82746; 83540; 84439; 84443; 85025; 85045

== ENCOUNTER 2025-01-31 14:02 | Outpatient (AMB) | payer MEDICARE, OTHER, SELFPAY ==
--- NOTE | 2025-01-31 14:13 | MHC.PC.OV ---
Vital Signs 01/31/25 14:15 Height 5 ft Weight 163 lb BMI 31.8 BP 140/72 H Blood Pressure Location Lt brachial Position Sitting Pulse 62 Pulse Source Pulse Oximeter Temp 97.1 F Temp Source Temporal Artery Scan Pulse Oximetry (%) 99 Oxygen Delivery Method Room Air 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: f/u htn Intake Note: Patient is here to follow up on HTN. 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 Accompanied by: Grandson Allergies amoxicillin Allergy (Intermediate, Verified 01/31/25 14:23) rectal bleeding lisinopril Allergy (Intermediate, Verified 01/31/25 14:23) cough Medication List - Last Reconciled 01/31/25 by Eloina Griffiths PA-C acetaminophen 650 mg (2 x 325 mg) PO Q6H PRN 30 days amlodipine 2.5 mg PO DAILY atorvastatin 80 mg PO BEDTIME celecoxib (Celebrex) 200 mg PO BID PRN cholecalciferol (vitamin D3) 25 mcg PO BEDTIME docusate sodium 100 mg PO BID 14 days escitalopram oxalate (Lexapro) 5 mg PO DAILY fexofenadine (Flavia Allergy) 180 mg PO DAILY fluticasone propionate 50 mcg/actuation 1 spray intranasal DAILY levothyroxine 112 mcg PO DAILY@0600 meclizine 25 mg PO TID PRN 7 days oxycodone-acetaminophen 5-325 mg 1 tab PO Q6H PRN propylene glycol 0.6% (Systane Balance) 1 drp ophthalmic (eye) BEDTIME Tobacco use date assessed: 01/31/25 Fall risk assessment: No Falls in past year Last assessed Fall Risk: 01/31/25 Dental Screening Dental Screen Date: 01/31/25 Did you have a dental visit in the last 12 months?: No Did you have a dental problem in the last 6 months where you did not have access to dental care?: No Was dental information given to patient?: No HPI f/u htn HPI Details 84-year-old female with a history of hypertension, hypothyroidism peripheral vascular disease hypercholesterolemia osteoporosis lumbar degenerative disc disease osteoarthritis coming in for follow-up patient was last seen 08/2024. Patient is seeing [facility] Thro[facility] next month for hearing aid fitting. She has been monitoring her blood pressures at home which have been in the 130 systolic over 70 diastolic range. She does not have blood pressures that exceed 140/90. Denies any symptoms of chest pain, headache or other symptoms of high blood pressure. [facility] Medical History Numbness and tingling in left hand Bilateral hand numbness Impaired vision Osteoarthritis of right knee Tinnitus of both ears Dizziness B12 deficiency Neck pain Overweight (BMI 25.0-29.9) Cataract, left eye Cataract Cough Hypercholesterolemia Anxiety Peripheral vascular disease Osteopenia Hypothyroid Hypertension Surgical History History of right cataract surgery History of left knee replacement History of lumpectomy of left breast History of colonoscopy History of hysterectomy History of thyroidectomy Family History Father CAD (coronary artery disease) CVD (cardiovascular disease) Mother Hypertension Stroke Aneurysm Family/Other Hyperlipidemia Social History Household Members: None Household Members Other:: grandson lives upstairs Housing: Apartment Are you a primary rn intensive care unit to a significant other at home: No Do you presently have visiting nurse or other home services: No Alcohol intake: never Patient Tobacco Use Status: Former Tobacco user Tobacco use type: Cigarette Years Smoked: 10 e-Cigarette/Vaping Use: Never Used Second Hand Smoke Exposure: Yes Advance Directives Date on File: 06/06/23 service: No Current occupational status: retired Cognitive needs: No Hearing needs: No Vision needs: Yes Questionnaire PHQ-9 Over the last 2 weeks, how often have you been bothered by any of the following problems? 1. Little interest or pleasure in doing things: not at all 2. Feeling down, depressed, or hopeless: not at all 3. Trouble falling or staying asleep, or sleeping too much: not at all 4. Feeling tired or having little energy: not at all 5. Poor appetite or overeating: not at all 6. Feeling bad about yourself - or that you are a failure or have let yourself or your family down: not at all 7. Trouble concentrating on things, such as reading the newspaper or watching television: not at all 8. Moving or speaking so slowly that other people could have noticed. Or the opposite - being so fidgety or restless that you have been moving around a lot more than usual: not at all 9. Thoughts that you would be better off or of hurting yourself in some way: not at all Total score: 0 Depression Screening Interpretation: Negative Depression Screening Done: Yes Source: Developed by Drs. Darren Noel, Minnie Nevarez, Dago Mcmahan and colleagues, with an educational madelyn from [employer]. Thrive Questionnaire Date Thrive assessed: 01/31/25 I am a: Patient What is your living situation today?: I have a steady place to live Within the past 12 months, did the food you bought not last and you didn't have the money to get more?: Never true Within the past 12 months, did you worry whether your food would run out before you got money to buy more?: Never true Do you have trouble paying for medicines?: No Do you have trouble getting transportation to medical appointments?: No Do you have trouble paying your heating and electricity bill?: No Do you have trouble taking care of your child, family member or friend?: No Do you have trouble with day-to-day activities such as bathing, preparing meals, shopping, managing finances, etc.?: No Are you currently unemployed and looking for a job?: No Are you interested in more education?: No Please select the resources that you would like help with: None Currently or been in a relationship where the following occur: No concerns reported THRIVE Score: 0 AUDIT C Alcohol Use Questionnaire (AUDIT-C) 1. How often do you have a drink containing alcohol?: Never Total Score: 0 MISAEL-7 AMB Questionnaire MISAEL-7 Date MISAEL - 7 assessed: 01/31/25 Feeling nervous, anxious, or on edge: 0 = Not at all Not being able to stop or control worryin = Not at all Worrying too much about different things: 0 = Not at all Trouble relaxin = Not at all Being so restless that it is hard to sit still: 0 = Not at all Becoming easily annoyed or irritable: 0 = Not at all Feeling afraid as if something awful might happen: 0 = Not at all Total MISAEL-7 score (0-4 normal; 5-9 mild; 10-14 moderate; 15-21 severe): 0 Source: Developed by Drs. Darren Noel, Minnie Nevarez, Dago Mcmaahn and colleagues, with an educational madelyn from [employer]. Review of Systems Const Denies body aches, Denies chills, Denies fever(s), Denies headache(s) and Denies poor appetite Eyes Reports no additional complaints ENT Denies dysphagia, Denies dizziness, Denies headache(s) and Denies odynophagia Card Denies chest pain, Denies syncope, Denies edema, Denies irregular heart rhythm, Denies lightheadedness and Denies dyspnea Resp Denies cough and Denies dyspnea GI Denies abdominal pain, Denies constipation, Denies dysphagia, Denies diarrhea, Denies nausea, Denies odynophagia and Denies vomiting Reports no additional complaints Musc Reports no additional complaints and Denies abnormal gait Skin/Breast Reports system reviewed and no additional complaints, except as documented Neuro Denies abnormal gait, Denies dizziness, Denies syncope and Denies headache(s) Psych Reports no additional complaints Physical exam (Primary Care) Vital Signs: Last Vital Signs Temp 97.1 F 01/31/25 14:15 Pulse 62 01/31/25 14:15 BP 140/72 H 01/31/25 14:15 Pulse Ox 99 01/31/25 14:15 Oxygen Delivery Method Room Air 01/31/25 14:15 BMI result Body Mass Index 31.8 Tobacco/Smoking Status: Tobacco use Status Tobacco use date assessed 01/31/25 01/31/25 14:22 Patient Tobacco Use Status Former Tobacco user 01/31/25 14:22 Tobacco use type Cigarette 01/31/25 14:22 e-Cigarette/Vaping Use Never Used 01/31/25 14:22 PHQ-9: PHQ-9 Score PHQ-9: Total score 0 01/31/25 14:22 Depression Screening Interpretation: Negative Thrive Assessment: Date of Thrive Assessment Date Thrive assessed 01/31/25 01/31/25 14:22 Currently or been in a relationship where the following occur: No concerns reported Const General: cooperative, healthy appearing, comfortable and no acute distress Orientation/consciousness: patient oriented x3 HENMT Head: Yes normocephalic Ears: hearing grossly normal bilaterally General nose exam: Normal external nose present Eyes General: appearance normal, both eyes and all related structures Conjunctivae: conjunctivae normal Neck Neck: Yes full ROM and Yes no lymphadenopathy Resp Effort & Inspection: normal respiratory effort Auscultation: clear to auscultation bilaterally, no crackles, no rales, no rhonchi and no wheezes Cardio Rate: regular rate Rhythm: regular rhythm Skin General skin exam: no rashes or lesions noted Neuro General: patient oriented x3 Gait exam (Neuro): Normal gait present Extrem General: Yes normal to inspection, Yes full ROM and No edema Psych Affect: normal affect Attitude: cooperative Insight: Good insight present (Psych) Judgement: Good judgement present (Psych) Coding Level of Care Code Est Pt Level 3 (04729) Diagnoses Obesity (BMI 30.0-34.9) E66.9 Primary hypertension I10 Hypertension type: primary hypertension Acquired hypothyroidism E03.9 Hypothyroidism type: acquired Hypercholesterolemia E78.00 Assessment & Plan Assessment & Plan (1) Obesity (BMI 30.0-34.9): Code(s): E66.9 - Obesity, unspecified Category: Medical Plan: Healthy diet and regular exercise is encouraged. (2) Hypertension: Code(s): I10 - Essential (primary) hypertension Category: Medical Qualifiers: Hypertension type: primary hypertension Qualified Code(s): I10 - Essential (primary) hypertension Plan: Continue on current blood pressure medication. Avoid salt intake and encourage healthy diet and regular exercise. (3) Hypothyroid: Code(s): E03.9 - Hypothyroidism, unspecified Category: Medical Qualifiers: Hypothyroidism type: acquired Qualified Code(s): E03.9 - Hypothyroidism, unspecified Plan: Continue on levothyroxine as prescribed. Most recent TSH and T4 within normal range. (4) Hypercholesterolemia: Code(s): E78.00 - Pure hypercholesterolemia, unspecified Category: Medical Plan: Avoid foods that are high in cholesterol such as red meat, fried foods, eggs and baked goods. Triglyceride goal of less than 150 and LDL goal of less than 130. Continue on Atorvastatin 80 Plan This note was constructed using voice recognition software. While every effort has been made to ensure accuracy and roll or tape edge machine operator, still areas may have been included sometimes these areas may affect the content or meeting of the given symptoms. Total time spent caring for the patient today was 20 minutes. This includes time spent before the visit reviewing the chart, time spent during the visit, and time spent after the visit and documentation.
[2025-01-31 14:15] VITALS: BP 140/72; PULSE 62; TEMP 36.2; O2SAT 99; BMI 31.8
== END 2025-01-31 14:49 | disposition home or self-care (01) ==
LOC: HO.HMCH 14:02
PROVIDERS: PCP Internal Medicine
DX: I10 Essential (primary) hypertension (principal); E03.9 Hypothyroidism, unspecified; E66.9 Obesity, unspecified; Z68.31 Body mass index [BMI] 31.0-31.9, adult; E78.00 Pure hypercholesterolemia, unspecified

== ENCOUNTER → 2025-01-31 14:02 | Outpatient (BNVA) | payer MEDICARE, OTHER, SELFPAY | PROVIDERS: PCP Internal Medicine | DX: E66.9 Obesity, unspecified (principal); I10 Essential (primary) hypertension; E03.9 Hypothyroidism, unspecified; E78.00 Pure hypercholesterolemia, unspecified | CPT/HCPCS: 99212 ==

== ENCOUNTER 2025-08-15 11:21 | Outpatient (AMB) | payer MEDICARE, OTHER, SELFPAY ==
[2025-08-15 11:26] VITALS: BP 142/66; PULSE 57; TEMP 36.1; O2SAT 100; BMI 31.9
--- NOTE | 2025-08-15 11:26 | MHC.PC.OV ---
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: No Accompanied by: Grand Child Allergies amoxicillin Allergy (Intermediate, Verified 08/15/25 11:34) rectal bleeding lisinopril Allergy (Intermediate, Verified 08/15/25 11:34) cough Medication List - Last Reconciled 08/15/25 by Pebbles Morel MD acetaminophen 650 mg (2 x 325 mg) PO Q6H PRN 30 days amlodipine 2.5 mg PO DAILY atorvastatin 80 mg PO BEDTIME celecoxib (Celebrex) 200 mg PO BID PRN cholecalciferol (vitamin D3) 25 mcg PO BEDTIME docusate sodium 100 mg PO BID 14 days escitalopram oxalate (Lexapro) 5 mg PO DAILY fexofenadine (Flavia Allergy) 180 mg PO DAILY fluticasone propionate 50 mcg/actuation 1 spray intranasal DAILY levothyroxine 112 mcg PO DAILY@0600 Tobacco use date assessed: 08/15/25 Fall risk assessment: No Falls in past year Last assessed Fall Risk: 08/15/25 Dental Screening Dental Screen Date: 08/15/25 Did you have a dental visit in the last 12 months?: No Did you have a dental problem in the last 6 months where you did not have access to dental care?: No Was dental information given to patient?: No HPI HPI Comments History of Present Illness Details The patient is an 85-year-old female presenting with hypertension management. She has a history of hypertension, managed with amlodipine 2.5 mg daily, and her blood pressure was recorded at 142/66 mmHg, consistent with previous readings. Her hyperlipidemia is managed with atorvastatin 80 mg, and she requires a refill for this medication. Her thyroid function is stable on levothyroxine 112 mcg. She is treated for depression and anxiety with escitalopram 5 mg. The patient is allergic to amoxicillin and lisinopril, which cause rectal bleeding and cough, respectively. Socially, she is a former smoker, does not drink alcohol, and maintains an active lifestyle through gardening and walking. [facility] Medical History Numbness and tingling in left hand Bilateral hand numbness Impaired vision Osteoarthritis of right knee Tinnitus of both ears Dizziness B12 deficiency Neck pain Overweight (BMI 25.0-29.9) Cataract, left eye Cataract Cough Hypercholesterolemia Anxiety Peripheral vascular disease Osteopenia Hypothyroid Hypertension Surgical History History of right cataract surgery History of left knee replacement History of lumpectomy of left breast History of colonoscopy History of hysterectomy History of thyroidectomy Family History Father CAD (coronary artery disease) CVD (cardiovascular disease) Mother Hypertension Stroke Aneurysm Family/Other Hyperlipidemia Social History Household Members: None Household Members Other:: grandson lives upstairs Housing: Apartment Are you a primary director of medicare to a significant other at home: No Do you presently have visiting nurse or other home services: No Alcohol intake: never Patient Tobacco Use Status: Former Tobacco user Tobacco use type: Cigarette Years Smoked: 10 e-Cigarette/Vaping Use: Never Used Second Hand Smoke Exposure: Yes Advance Directives Date on File: 06/06/23 service: No Current occupational status: retired Cognitive needs: No Hearing needs: Yes Vision needs: Yes Questionnaire PHQ-9 Over the last 2 weeks, how often have you been bothered by any of the following problems? 1. Little interest or pleasure in doing things: not at all 2. Feeling down, depressed, or hopeless: not at all 3. Trouble falling or staying asleep, or sleeping too much: not at all 4. Feeling tired or having little energy: not at all 5. Poor appetite or overeating: not at all 6. Feeling bad about yourself - or that you are a failure or have let yourself or your family down: not at all 7. Trouble concentrating on things, such as reading the newspaper or watching television: not at all 8. Moving or speaking so slowly that other people could have noticed. Or the opposite - being so fidgety or restless that you have been moving around a lot more than usual: not at all 9. Thoughts that you would be better off or of hurting yourself in some way: not at all Total score: 0 Depression Screening Interpretation: Negative Depression Screening Done: Yes 14763 - PHQ-9 Billing: Yes Source: Developed by Drs. Darren Noel, Minnie Nevarez, Dago Mcmahan and colleagues, with an educational madelyn from [employer]. Thrive Questionnaire Date Thrive assessed: 01/31/25 I am a: Patient What is your living situation today?: I have a steady place to live Within the past 12 months, did the food you bought not last and you didn't have the money to get more?: Never true Within the past 12 months, did you worry whether your food would run out before you got money to buy more?: Never true Do you have trouble paying for medicines?: No Do you have trouble getting transportation to medical appointments?: No Do you have trouble paying your heating and electricity bill?: No Do you have trouble taking care of your child, family member or friend?: No Do you have trouble with day-to-day activities such as bathing, preparing meals, shopping, managing finances, etc.?: No Are you currently unemployed and looking for a job?: No Are you interested in more education?: No Please select the resources that you would like help with: None Currently or been in a relationship where the following occur: No concerns reported THRIVE Score: 0 AUDIT C Alcohol Use Questionnaire (AUDIT-C) 1. How often do you have a drink containing alcohol?: Never 3. How often do you have six or more drinks on one occasion?: Never Total Score: 0 Score Reviewed/Action Taken: No MISAEL-7 AMB Questionnaire MISAEL-7 Date MISAEL - 7 assessed: 01/31/25 Feeling nervous, anxious, or on edge: 0 = Not at all Not being able to stop or control worryin = Not at all Worrying too much about different things: 0 = Not at all Trouble relaxin = Not at all Being so restless that it is hard to sit still: 0 = Not at all Becoming easily annoyed or irritable: 0 = Not at all Feeling afraid as if something awful might happen: 0 = Not at all Total MISAEL-7 score (0-4 normal; 5-9 mild; 10-14 moderate; 15-21 severe): 0 Source: Developed by Drs. Darren Noel, Minnie Nevarez, Dago Mcmahan and colleagues, with an educational madelyn from [employer]. MISAEL-7 Assessment Billing MISAEL-7 Assessment Tool: MISAEL-7 Assessment 43335 Review of Systems Const All systems reviewed & are unremarkable except as noted in HPI and below Card Denies chest pain at rest, Denies chest pain with activity, Denies edema, Denies irregular heart rhythm, Denies claudication, Denies dyspnea, Denies dyspnea on exertion, Denies orthopnea, Denies paroxysmal nocturnal dyspnea and Denies slow heart rate Resp Denies cough, Denies dyspnea and Denies dyspnea on exertion Physical exam (Primary Care) Vital Signs: Last Vital Signs Temp 97.0 F 08/15/25 11:26 Pulse 57 08/15/25 11:26 BP 142/66 H 08/15/25 11:26 Pulse Ox 100 08/15/25 11:26 Oxygen Delivery Method Room Air 08/15/25 11:26 BMI result Body Mass Index 31.9 BMI Assessment/Plan discussion: High BMI High, discussed plan: lifestyle, weight reduction, dietary and physical activity Tobacco/Smoking Status: Tobacco use Status Tobacco use date assessed 08/15/25 08/15/25 11:32 Patient Tobacco Use Status Former Tobacco user 08/15/25 11:32 Tobacco use type Cigarette 08/15/25 11:32 e-Cigarette/Vaping Use Never Used 08/15/25 11:32 PHQ-9: PHQ-9 Score PHQ-9: Total score 0 08/15/25 11:40 Depression Screening Interpretation: Negative Thrive Assessment: Date of Thrive Assessment Date Thrive assessed 01/31/25 08/15/25 11:32 Currently or been in a relationship where the following occur: No concerns reported Resp Effort & Inspection: normal respiratory effort Auscultation: clear to auscultation bilaterally Cardio Jugular venous distension: no JVD Rate: regular rate Rhythm: regular rhythm Heart sounds: S1 normal heart sound present and S2 normal heart sound present Extrem General: Yes full ROM Office Procedures Flu Questionnaire Does the patient have a severe egg allergy?: No Does the patient have severe life threatening allergies?: No Does the patient have a fever or illness today?: No Has the patient ever had Guillain-Shubert Syndrome?: No Has the patient ever had any past reaction to a flu shot?: No Immunizations Fluarix [id number] (PF) 45 mcg (15 mcg x 3)/0.5 mL IM syringe Performing Provider: Pebbles Morel MD [facility] Administered by: LINA Dolan on 08/15/25 11:49 Dose Route Admin Location Dispensed Lot Number Expiration Date [facility] Manager Infrastructure 0.5 mL IM Left Deltoid 0.5 mL [id number] 04/29/26 [id number] [employer] VIS Given Date VIS Provided VIS Publication Date 08/15/25 Single Vaccine 24 Eligibility Eligibility Date Funding Source Not [facility] Eligible 08/15/25 Private Coding Level of Care Code Est Pt Level 4 (40362) Complex EM visit Add On G2211 Diagnoses Primary hypertension I10 Hypertension type: primary hypertension Hypercholesterolemia E78.00 Depression F32.A Acquired hypothyroidism E03.9 Hypothyroidism type: acquired Additional Codes PHQ-9 - 45982 - PHQ-9 Billing: Yes ([id number]) MISAEL-7 Assessment Billing - MISAEL-7 Assessment Tool: MISAEL-7 Assessment 78061 ([id number]) Time Spent (min) 21 Assessment & Plan Assessment & Plan (1) Hypertension: Code(s): I10 - Essential (primary) hypertension Category: Medical Qualifiers: Hypertension type: primary hypertension Qualified Code(s): I10 - Essential (primary) hypertension (2) Hypercholesterolemia: Code(s): E78.00 - Pure hypercholesterolemia, unspecified Category: Medical (3) Depression: Code(s): F32.A - Depression, unspecified Category: Medical (4) Hypothyroid: Code(s): E03.9 - Hypothyroidism, unspecified Category: Medical Qualifiers: Hypothyroidism type: acquired Qualified Code(s): E03.9 - Hypothyroidism, unspecified Plan Plan 1. Essential Hypertension The patient's hypertension is managed with amlodipine 2.5 mg daily, and her blood pressure remains stable at 142/66 mmHg. Continued monitoring and medication adherence are advised. 2. Hyperlipidemia The patient is on atorvastatin 80 mg for hyperlipidemia and requires a refill. Regular monitoring of lipid levels is recommended. 3. Hypothyroidism The patient is treated with levothyroxine 112 mcg for hypothyroidism, with stable thyroid function noted in recent labs. Routine blood work is planned to monitor thyroid levels. 4. Depression The patient is managed with escitalopram 5 mg for depression and anxiety. Continued medication adherence and monitoring of symptoms are advised. 5. Preventative Care Influenza vaccination was discussed and offered during the visit. The patient expressed interest in receiving the vaccine at the clinic. Orders: Orders Lipid Panel 4 Months E78.5 - Hyperlipidemia, unspecified Vitamin D 25-OH Total 4 Months E55.9 - Vitamin D deficiency, unspecified Comprehensive [place]. Panel Fast 4 Months I73.9 - Peripheral vascular disease, unspecified Thyroid Stimulating Hormone 4 Months E03.9 - Hypothyroidism, unspecified Influenza [id number] Immunization Today Z23 - Encounter for immunization Medications: Refilled levothyroxine 112 mcg PO DAILY@0600 90 tabs 0RF atorvastatin 80 mg PO BEDTIME 90 tabs 1RF E78.00 - Pure hypercholesterolemia, unspecified
--- OUTSIDE RECORDS SUMMARY | 2025-08-15 14:37 | XMS_ITS | Patient Health Record ---
Author Organization [facility] Address [address] [place] [id number] Care Team Providers Care Spring Setter Name Role Phone Darren Hunter Unavailable [phone] Reason For Referral No Information Plan Of Treatment No Information
== END 2025-08-15 11:50 | disposition home or self-care (01) ==
LOC: HO.HMCH 11:21
PROVIDERS: PCP Internal Medicine; Visit Provider Internal Medicine
DX: I10 Essential (primary) hypertension (principal); E78.00 Pure hypercholesterolemia, unspecified; F32.A Depression, unspecified; E03.9 Hypothyroidism, unspecified; Z23 Encounter for immunization

== ENCOUNTER → 2025-08-15 11:21 | Outpatient (BNVA) | payer MEDICARE, OTHER, SELFPAY | PROVIDERS: PCP Internal Medicine; Visit Provider Internal Medicine | DX: I10 Essential (primary) hypertension (principal); F32.A Depression, unspecified; F41.9 Anxiety disorder, unspecified; E78.00 Pure hypercholesterolemia, unspecified; E03.9 Hypothyroidism, unspecified; Z23 Encounter for immunization; Z79.899 Other long term (current) drug therapy | CPT/HCPCS: 90471; 90656; 96127; 99212 ==